=== PATIENT | female | born 1960 | race Caucasian/White ===

== ENCOUNTER 2016-09-20 00:57 | Inpatient (IN) | payer BC ==
[~2016-09-20] VITALS: Ht 170.2 cm; Wt 94.4 kg
[~2016-09-20 00:57] MED LIST: ATOR40TA59 PO; AZIT250T PO; CARV6.252 PO; FAMO20TA5 PO; FURO-68 PO; FURO40TA4 PO; IBUP400T18 PO; LISI2.5T PO; NICO2GUM5 BC; PRAS10TA4 PO
[2016-09-20] MEDS ORDERED: ONDANSETRON PF 4 MG/2 ML VIAL. IV ONE (01:45)
[2016-09-20] MEDS ORDERED: IPRATRPIUM/ALBUTEROL 0.5/2.5MG 3 ML NEBU. NEB ONE (01:45)
[2016-09-20 01:51] LABS: BASO # 0.1 x10^3/uL (0.0-0.2); BASO % 1 % (0-3); EOS % 4 % (0-3); HEMATOCRIT 38.3 % (36.0-47.0); HEMOGLOBIN 12.6 g/dL (12.0-15.5); LYMPH # 3.6 x10^3/uL (1.0-4.8); LYMPH % 32 % (24-48); MEAN CORPUSCULAR HEMOGLOBIN 29 pg (25-35); MEAN CORPUSCULAR HGB CONC 33 g/dL (31-37); MEAN CORPUSCULAR VOLUME 88 fL (79-100); MONO % 6 % (0-9); NEUT % 57 % (31-73); PLATELET COUNT 260 x10^3/uL (140-400); RED BLOOD COUNT 4.35 x10^6/uL (3.50-5.40); RED CELL DISTRIBUTION WIDTH 13.2 % (11.5-14.5)
[2016-09-20 02:04] LABS: CALCIUM 8.9 mg/dL (8.5-10.1); CREATININE 1.2 mg/dL (0.6-1.0); GFR 46.8; POTASSIUM 3.5 mmol/L (3.5-5.1)
[2016-09-20 02:10] LABS: OBC FLU VALID
--- NOTE | 2016-09-20 02:18 | PHYS DOC ---
Past Medical History Past Medical History: CHF, COPD, Hypertension Additional Past Medical Histor: ectopic , CARDIAC STENTS Past Surgical History: Hysterectomy Additional Past Surgical Histo: 8 LEFT KNEE PROCEDURES Alcohol Use: Occasionally Drug Use: None Adult General Chief Complaint Chief Complaint: Congestion HPI HPI This is a 55-year-old female who has significant history of COPD and CHF is had CAD as well with multiple stents presenting with cough and mild shortness of breath for the last week that has worsened. She states she has been congested as well. She states she has mild chest pain with her cough and breathing. She states subjective fever and chills. Review of Systems Review of Systems Constitutional: Denies fever or chills [] Eyes: Denies change in visual acuity, redness, or eye pain [] HENT: Denies nasal congestion or sore throat [] Respiratory: Has cough, has shortness of breath [] Cardiovascular: No additional information not addressed in HPI [] GI: Denies abdominal pain, nausea, vomiting, bloody stools or diarrhea [] : Denies dysuria or hematuria [] Musculoskeletal: Denies back pain or joint pain [] Integument: Denies rash or skin lesions [] Neurologic: Denies headache, focal weakness or sensory changes [] Endocrine: Denies polyuria or polydipsia [] Current Medications Current Medications Current Medications Medications (Trade) Dose Ordered Sig/Mary Start Time Stop Time Status Last Admin Dose Admin Albuterol/ Ipratropium (Duoneb) 3 ml 1X ONCE 09/20/16 01:45 09/20/16 01:46 DC 09/20/16 01:51 3 ML Methylprednisolone Sodium Succinate (Solu-Medrol 125mg Vial) 125 mg 1X ONCE 09/20/16 02:30 09/20/16 02:31 DC 09/20/16 02:41 125 MG Ondansetron HCl (Zofran) 4 mg 1X ONCE 09/20/16 01:45 09/20/16 01:46 DC 09/20/16 01:48 4 MG Allergies Allergies Allergies Coded Allergies Type Severity Reaction Last Updated Verified codeine Allergy Severe Anaphylaxis 08/04/14 Yes ketorolac Allergy Severe Anaphylaxis 08/04/14 Yes diphenhydramine Allergy Intermediate Hives 06/19/16 Yes Physical Exam Physical Exam Constitutional: Well developed, well nourished, no acute distress, non-toxic appearance. [] HENT: Normocephalic, atraumatic, bilateral external ears normal, oropharynx moist, no oral exudates, nose normal. [] Eyes: PERRLA, EOMI, conjunctiva normal, no discharge. [] Neck: Normal range of motion, no tenderness, supple, no stridor. [] Cardiovascular:Heart rate regular rhythm, no murmur [] Lungs & Thorax: Mild expiratory wheeze [] Abdomen: Bowel sounds normal, soft, no tenderness, no masses, no pulsatile masses. [] Skin: Warm, dry, no erythema, no rash. [] Back: No tenderness, no CVA tenderness. [] Extremities: No tenderness, no cyanosis, no clubbing, ROM intact, no edema. [] Neurologic: Alert and oriented X 3, normal motor function, normal sensory function, no focal deficits noted. [] Psychologic: Affect normal, judgement normal, mood normal. [] Current Patient Data Vital Signs Vital Signs Date Time Temp Pulse Resp B/P Pulse Ox O2 Delivery O2 Flow Rate FiO2 09/20/16 02:30 104 148/85 92 Room Air 09/20/16 01:07 98.4 20 98.4 Lab Values Laboratory Tests Test 09/20/16 01:40 White Blood Count 11.0x10^3/uL (4.0-11.0) Red Blood Count 4.35x10^6/uL (3.50-5.40) Hemoglobin 12.6g/dL (12.0-15.5) Hematocrit 38.3% (36.0-47.0) Mean Corpuscular Volume 88fL (79-100) Mean Corpuscular Hemoglobin 29pg (25-35) Mean Corpuscular Hemoglobin Concent 33g/dL (31-37) Red Cell Distribution Width 13.2% (11.5-14.5) Platelet Count 260x10^3/uL (140-400) Neutrophils (%) (Auto) 57% (31-73) Lymphocytes (%) (Auto) 32% (24-48) Monocytes (%) (Auto) 6% (0-9) Eosinophils (%) (Auto) 4% (0-3) H Basophils (%) (Auto) 1% (0-3) Neutrophils # (Auto) 6.3x10^3uL (1.8-7.7) Lymphocytes # (Auto) 3.6x10^3/uL (1.0-4.8) Monocytes # (Auto) 0.6x10^3/uL (0.0-1.1) Eosinophils # (Auto) 0.5x10^3/uL (0.0-0.7) Basophils # (Auto) 0.1x10^3/uL (0.0-0.2) Sodium Level 143mmol/L (136-145) Potassium Level 3.5mmol/L (3.5-5.1) Chloride Level 105mmol/L (98-107) Carbon Dioxide Level 27mmol/L (21-32) Anion Gap 11 (6-14) Blood Urea Nitrogen 15mg/dL (7-20) Creatinine 1.2mg/dL (0.6-1.0) H Estimated GFR (Cockcroft-Gault) 46.8 Glucose Level 204mg/dL (70-99) H Calcium Level 8.9mg/dL (8.5-10.1) Troponin I Quantitative < 0.017ng/mL (0.000-0.055) GZ-Tkw-X-Type Natriuretic Peptide 147pg/mL (0-124) H Influenza Type A Antigen Negative (NEGATIVE) Influenza Type B Antigen Negative (NEGATIVE) Laboratory Tests 09/20/16 01:40 Laboratory Tests 09/20/16 01:40 EKG EKG EKG as interpreted by ne shows a sinus tachycardia with rate of 107 bpm. There are some noted T-wave inversions to V4 to V6. Similar to prior EKG that demonstrated signs of high lateral ST abnormalities. Radiology/Procedures Radiology/Procedures One view of the chest as interpreted by ne did not reveal any acute cardiopulmonary process. Course & Med Decision Making Course & Med Decision Making Pertinent Labs and Imaging studies reviewed. (See chart for details) [place] female with known history of COPD and CAD with stents will be admitted to the hospital for COPD exacerbation. Her portable view of her chest did not reveal any acute abnormalities. Her EKG shows continued demonstration of bilateral ST changes. Her cardiac enzymes are negative. Her cough and duration of chest symptoms are in direct correlation. She was given a dose of IV steroids and breathing treatment as well as a nebulized lidocaine treatment with mild relief. Patient still continued to be symptomatically short of breath and will be admitted to the hospitalist, Dr. King, for further evaluation and treatment. I will be discussing the need to admit this patient with Dr. King. Her room air saturation remained at 94% prior to be admitted to the floor and she was in no acute respiratory distress. Dragon Disclaimer Dragon Disclaimer This electronic medical record was generated, in whole or in part, using a voice recognition dictation system. Departure Departure Impression: Primary Impression: COPD exacerbation Disposition: ADMITTED INPATIENT Admitting Physician: Kael King Condition: STABLE Referrals: NO PCP (PCP) IGOR DASILVA DO Sep 20, 2016 02:18
[2016-09-20] MEDS ORDERED: methylPREDNISolone SOD SUCC PF 125 MG/2 ML VIAL. IV ONE (02:30)
[2016-09-20] MEDS ORDERED: ONDANSETRON PF 4 MG/2 ML VIAL. IV PRN (03:00)
[2016-09-20] MEDS ORDERED: LIDOCAINE 4% IJ ONE (03:00)
[2016-09-20 04:14] VITALS: BP 123/86
[2016-09-20] MEDS ORDERED: GUAIFENESIN 200 MG/10 ML LIQUID. PO PRN (05:00)
[2016-09-20] MEDS ORDERED: GUAIFENESIN ER 600 MG TABLET.ER PO PRN (05:06)
[2016-09-20] MEDS: IBUPROFEN 400 MG TABLET. PO PRN ×2 (05:13→10:19)
[2016-09-20] MEDS ORDERED: INFLUENZA VAX SCREEN BY RX. MC ONE (06:15)
--- NOTE | 2016-09-20 06:25 | EKG ---
[facility] [address] [place] [address] Test Date: 2016-09-20 Test Time: 01:11:56 Pat Name: PRIMO HOPKINS Department: Room: [facility] Gender: F Safety Council Director: : 1960 Requested By: IGOR DASILVA Order Number: [id number] Reading MD: Attila Porter Measurements Intervals [place] Rate: 107 P: 55 MD: 130 QRS: 8 QRSD: 106 T: 136 QT: 344 QTc: 465 Interpretive Statements SINUS TACHYCARDIA ST & T ABNORMALITY, CONSIDER ANTEROLATERAL ISCHEMIA OR LEFT VENTRICULAR STRAIN INFEROLATERAL ISCHEMIA OR LEFT VENTRICULAR STRAIN RI6.01 Unconfirmed report Compared to ECG 06/19/2016 17:00:18 Atrial abnormality no longer present Left-axis deviation no longer present T-wave abnormality still present Possible ischemia still present Electronically Signed On 09-25-2016 13:33:01 SENIOR CARE MANAGER by Attila Porter
--- NOTE | 2016-09-20 07:13 | RAD ---
Indication chest pain. A single view of the chest was obtained and is compared to an examination 06/19/2016. The heart and pulmonary vessels appear normal. The lungs are clear. The mediastinum has a normal appearance. There has not been a significant change in the chest compared to the previous exam. IMPRESSION: No acute or focal process. No significant change
[2016-09-20 07:15] VITALS: BP 124/68
[2016-09-20] MEDS ORDERED: IPRATRPIUM/ALBUTEROL 0.5/2.5MG 3 ML NEBU. NEB SCH (08:00)
[2016-09-20] MEDS ORDERED: FLU VACC QUAD 2016-17 (36MOS+)/PF 0.5 ML SYRINGE. VAX IM ONE (09:00)
--- NOTE | 2016-09-20 09:22 | PDOC1 ---
History and Physical Past Medical History Cardiovascular: CHF, HTN, Other (cardiomyopathy) Pulmonary: COPD CENTRAL NERVOUS SYSTEM: Other GI: GERD Heme/Onc: No pertinent hx Hepatobiliary: No pertinent hx Psych: No pertinent hx Rheumatologic: No pertinent hx Infectious disease: No pertinent hx Renal/: No pertinent hx Endocrine: No pertinent hx Past Surgical History Past Surgical History: Hysterectomy, Other Family History Family History: Coronary Artery Disease Social History Smoke: 1 pack per day ALCOHOL: none Drugs: None Current Problem List Problem List Problems Medical Problems: (1) COPD exacerbation Status: Acute Current Medications Current Medications Current Medications Medications (Trade) Dose Ordered Sig/Mary Start Time Stop Time Status Last Admin Dose Admin Albuterol/ Ipratropium (Duoneb) 3 ml RTQID 09/20/16 08:00 09/21/16 07:59 09/20/16 07:10 3 ML Guaifenesin (Mucinex) 600 mg PRN BID PRN 09/20/16 05:06 09/20/16 05:14 600 MG Guaifenesin (Robitussin) 600 mg PRN BID PRN 09/20/16 05:00 09/20/16 05:06 DC Ibuprofen (Motrin) 400 mg TID PRN PRN 09/20/16 05:00 09/20/16 05:13 400 MG Influenza Virus Vaccine Quadrival (Fluarix Quad [id number] Syringe) 0.5 ml ONCE ONCE 09/20/16 09:00 09/20/16 09:01 DC Info (Do NOT chart on this placeholder) 0.5 each 1X ONCE 09/20/16 06:15 09/20/16 06:16 UNV Lidocaine HCl 2 ml ONCE ONCE 09/20/16 03:00 09/20/16 03:01 DC Methylprednisolone Sodium Succinate (Solu-Medrol 125mg Vial) 125 mg 1X ONCE 09/20/16 02:30 09/20/16 02:31 DC 09/20/16 02:41 125 MG Ondansetron HCl (Zofran) 4 mg PRN Q8HRS PRN 09/20/16 03:00 09/21/16 02:59 Allergies Allergies Allergies Coded Allergies Type Severity Reaction Last Updated Verified codeine Allergy Severe Anaphylaxis 08/04/14 Yes ketorolac Allergy Severe Anaphylaxis 08/04/14 Yes diphenhydramine Allergy Intermediate Hives 06/19/16 Yes ROS Review of System CONSTITUTIONAL: No fever or chills EYES: No recent changes SKIN: No rash or itching CARDIOVASCULAR: No chest pain, syncope, palpitations, or edema RESPIRATORY: SOB or cough GASTROINTESTINAL: No nausea, vomiting or abdominal pain NEUROLOGICAL: No headaches or weakness ENDOCRINE: No cold or heat intolerance GENITOURINARY: No urgency or frequency of urination MUSCULOSKELETAL: No back pain or joint pain LYMPHATICS: No enlarged lymph nodes PSYCHIATRIC: No anxiety or depression Physical Exam Physical Exam GEN.: No apparent distress. Alert and oriented. HEENT: Head is normocephalic, atraumatic NECK: Supple. no jvd LUNGS: wheezing bilateral HEART: RRR, S1, S2 present. Peripheral pulses intact ABDOMEN: Soft, nontender. Positive bowel sounds. EXTREMITIES: Without any cyanosis. NEUROLOGIC: Normal speech, normal tone PSYCHIATRIC: Normal affect, normal mood. SKIN: no visible lesions Vitals Vitals Vital Signs Date Time Temp Pulse Resp B/P Pulse Ox O2 Delivery O2 Flow Rate FiO2 09/20/16 07:15 97.6 94 18 124/68 97 Room Air 97.6 Labs Labs Laboratory Tests Test 09/20/16 01:40 White Blood Count 11.0x10^3/uL (4.0-11.0) Red Blood Count 4.35x10^6/uL (3.50-5.40) Hemoglobin 12.6g/dL (12.0-15.5) Hematocrit 38.3% (36.0-47.0) Mean Corpuscular Volume 88fL (79-100) Mean Corpuscular Hemoglobin 29pg (25-35) Mean Corpuscular Hemoglobin Concent 33g/dL (31-37) Red Cell Distribution Width 13.2% (11.5-14.5) Platelet Count 260x10^3/uL (140-400) Neutrophils (%) (Auto) 57% (31-73) Lymphocytes (%) (Auto) 32% (24-48) Monocytes (%) (Auto) 6% (0-9) Eosinophils (%) (Auto) 4% (0-3) Basophils (%) (Auto) 1% (0-3) Neutrophils # (Auto) 6.3x10^3uL (1.8-7.7) Lymphocytes # (Auto) 3.6x10^3/uL (1.0-4.8) Monocytes # (Auto) 0.6x10^3/uL (0.0-1.1) Eosinophils # (Auto) 0.5x10^3/uL (0.0-0.7) Basophils # (Auto) 0.1x10^3/uL (0.0-0.2) Sodium Level 143mmol/L (136-145) Potassium Level 3.5mmol/L (3.5-5.1) Chloride Level 105mmol/L (98-107) Carbon Dioxide Level 27mmol/L (21-32) Anion Gap 11 (6-14) Blood Urea Nitrogen 15mg/dL (7-20) Creatinine 1.2mg/dL (0.6-1.0) Estimated GFR (Cockcroft-Gault) 46.8 Glucose Level 204mg/dL (70-99) Calcium Level 8.9mg/dL (8.5-10.1) Troponin I Quantitative < 0.017ng/mL (0.000-0.055) GY-Deo-V-Type Natriuretic Peptide 147pg/mL (0-124) Influenza Type A Antigen Negative (NEGATIVE) Influenza Type B Antigen Negative (NEGATIVE) Laboratory Tests Test 09/20/16 01:40 White Blood Count 11.0x10^3/uL (4.0-11.0) Red Blood Count 4.35x10^6/uL (3.50-5.40) Hemoglobin 12.6g/dL (12.0-15.5) Hematocrit 38.3% (36.0-47.0) Mean Corpuscular Volume 88fL (79-100) Mean Corpuscular Hemoglobin 29pg (25-35) Mean Corpuscular Hemoglobin Concent 33g/dL (31-37) Red Cell Distribution Width 13.2% (11.5-14.5) Platelet Count 260x10^3/uL (140-400) Neutrophils (%) (Auto) 57% (31-73) Lymphocytes (%) (Auto) 32% (24-48) Monocytes (%) (Auto) 6% (0-9) Eosinophils (%) (Auto) 4% (0-3) Basophils (%) (Auto) 1% (0-3) Neutrophils # (Auto) 6.3x10^3uL (1.8-7.7) Lymphocytes # (Auto) 3.6x10^3/uL (1.0-4.8) Monocytes # (Auto) 0.6x10^3/uL (0.0-1.1) Eosinophils # (Auto) 0.5x10^3/uL (0.0-0.7) Basophils # (Auto) 0.1x10^3/uL (0.0-0.2) Sodium Level 143mmol/L (136-145) Potassium Level 3.5mmol/L (3.5-5.1) Chloride Level 105mmol/L (98-107) Carbon Dioxide Level 27mmol/L (21-32) Anion Gap 11 (6-14) Blood Urea Nitrogen 15mg/dL (7-20) Creatinine 1.2mg/dL (0.6-1.0) Estimated GFR (Cockcroft-Gault) 46.8 Glucose Level 204mg/dL (70-99) Calcium Level 8.9mg/dL (8.5-10.1) Troponin I Quantitative < 0.017ng/mL (0.000-0.055) DC-Spn-S-Type Natriuretic Peptide 147pg/mL (0-124) Influenza Type A Antigen Negative (NEGATIVE) Influenza Type B Antigen Negative (NEGATIVE) VTE Prophylaxis Ordered VTE Prophylaxis Devices: Yes VTE Pharmacological Prophylaxi: Yes PERFECTO MAR MD Sep 20, 2016 09:22
[2016-09-20] MEDS ORDERED: NICOTINE POLACRILEX 2MG GUM PACKAGE of 12. BC PRN (09:30)
[2016-09-20] MEDS ORDERED: GUAIFENESIN DM 200MG/20MG 10 ML SYRUP. PO PRN (09:45)
[2016-09-20] MEDS: DOXYCYCLINE HYCLATE 100 MG TABLET PO SCH ×2 (10:19→21:35)
[2016-09-20] MEDS: FUROSEMIDE 40 MG TABLET PO SCH (10:20)
[2016-09-20] MEDS: PRASUGREL 10 MG TABLET. PO SCH (10:21)
[2016-09-20] MEDS: CARVEDILOL 6.25 MG TABLET PO SCH ×2 (10:21→17:44)
[2016-09-20] MEDS: NICOTINE 21MG PATCH. TD PRN (10:26)
[2016-09-20 11:03] VITALS: BP 128/67
[2016-09-20] MEDS: PANTOPRAZOLE 40 MG TABLET. PO SCH (11:06)
--- NOTE | 2016-09-20 11:15 | PDOC2 ---
TAWNY SHEN RIGGER THIRD 09/20/16 1115: CARDIAC CONSULT DATE OF CONSULT Date of Consult DATE: 09/20/16 TIME: 10:58 REASON FOR CONSULT Reason for Consult: SOA REFERRING PHYSICIAN Referring Physician: Bri SOURCE Source: Chart review, Patient HISTORY OF PRESENT ILLNESS HISTORY OF PRESENT ILLNESS This is a pleasant 55 yo female admitted for complains of SOA. reports that in the last week she has developed nasal congestion progressing to intractable productive coughing with white to yellow sputum. She was at work yesterday when she had a coughing spell and felt sharp chest pain during deep breathing and coughing. Also her SOA increased as well. Complains of chills but no recorded fever. Unfortunately she continue to smoke tobacco and accidentally stopped her ASA a month ago because she thought she could stop it but continues to be taking effient. She has been compliant with rest of her medications. Denies any increased leg swelling, bloating, nausea. PAST MEDICAL HISTORY Past Medical History Cardiovascular: CHF, HTN Pulmonary: COPD CENTRAL NERVOUS SYSTEM: No pertinent history GI: GERD Heme/Onc: No pertinent hx Hepatobiliary: No pertinent hx Psych: No pertinent hx Musculoskeletal: Osteoarthritis (knees) Rheumatologic: No pertinent hx Infectious disease: No pertinent hx ENT: No pertinent hx Renal/: No pertinent hx Endocrine: No pertinent hx Dermatology: No pertinent hx PAST SURGICAL HISTORY Past Surgical History Hysterectomy (complete), Other (left knee surgery X 8) FAMILY HISTORY Family History Coronary Artery Disease (both parents; sister of CAD @ age 55) SOCIAL HISTORY Social History Smoke: 1 pack per day (X 40 years) ALCOHOL: none Drugs: None CURRENT MEDICATIONS CURRENT MEDICATIONS Current Medications Medications (Trade) Dose Ordered Sig/Mary Route PRN Reason Start Time Stop Time Status Last Admin Dose Admin Albuterol/ Ipratropium (Duoneb) 3 ml 1X ONCE NEB 09/20/16 01:45 09/20/16 01:46 DC 09/20/16 01:51 Ondansetron HCl (Zofran) 4 mg 1X ONCE IV 09/20/16 01:45 09/20/16 01:46 DC 09/20/16 01:48 Methylprednisolone Sodium Succinate (Solu-Medrol 125mg Vial) 125 mg 1X ONCE IV 09/20/16 02:30 09/20/16 02:31 DC 09/20/16 02:41 Albuterol/ Ipratropium (Duoneb) 3 ml RTQID NEB 09/20/16 08:00 09/20/16 09:40 DC 09/20/16 07:10 Ibuprofen (Motrin) 400 mg TID PRN PRN PO INFLAMMATION 09/20/16 05:00 09/20/16 10:19 Guaifenesin (Mucinex) 600 mg PRN BID PRN PO COUGH 09/20/16 05:06 09/20/16 05:14 Carvedilol (Coreg) 6.25 mg BIDWMEALS PO 09/20/16 10:00 09/20/16 10:21 Furosemide (Lasix) 40 mg DAILY PO 09/20/16 10:00 09/20/16 10:20 Prasugrel (Effient) 10 mg DAILYWBKFT PO 09/20/16 10:00 09/20/16 10:21 Nicotine (Nicoderm Cq 21mg) 1 patch PRN DAILY PRN TD SMOKING CESSATION 09/20/16 09:45 09/20/16 10:26 Doxycycline Hyclate (Vibra-Tab) 100 mg BID PO 09/20/16 10:30 09/20/16 10:19 ALLERGIES ALLERGIES: Coded Allergies: codeine (Verified Allergy, Severe, Anaphylaxis, 08/04/14) ketorolac (Verified Allergy, Severe, Anaphylaxis, 08/04/14) diphenhydramine (Verified Allergy, Intermediate, Hives, 06/19/16) ROS Review of System 14 point ROS evaluated with pertinent positives noted per HPI PHYSICAL EXAM General: Alert, Oriented X3, Cooperative, No acute distress HEENT: Atraumatic, Mucous membr. moist/pink Lungs: Clear to auscultation, Normal air movement Heart: Regular rate, Normal S1, Normal S2, Other (2/6 systolic murmur ) Abdomen: Soft, No tenderness Extremities: No cyanosis, Other (1+ bilateral LE pitting edema) Skin: No breakdown, No significant lesion Neuro: Normal speech, Sensation intact Psych/Mental Status: Mental status NL, Mood NL MUSCULOSKELETAL: Osteoarthritic changes both hands VITALS VITALS Vital Signs Date Time Temp Pulse Resp B/P Pulse Ox O2 Delivery O2 Flow Rate FiO2 09/20/16 10:21 94 124/68 09/20/16 08:00 Room Air 09/20/16 07:15 97.6 18 97 97.6 LABS Lab: Laboratory Tests Test 09/20/16 01:40 White Blood Count 11.0x10^3/uL (4.0-11.0) Red Blood Count 4.35x10^6/uL (3.50-5.40) Hemoglobin 12.6g/dL (12.0-15.5) Hematocrit 38.3% (36.0-47.0) Mean Corpuscular Volume 88fL (79-100) Mean Corpuscular Hemoglobin 29pg (25-35) Mean Corpuscular Hemoglobin Concent 33g/dL (31-37) Red Cell Distribution Width 13.2% (11.5-14.5) Platelet Count 260x10^3/uL (140-400) Neutrophils (%) (Auto) 57% (31-73) Lymphocytes (%) (Auto) 32% (24-48) Monocytes (%) (Auto) 6% (0-9) Eosinophils (%) (Auto) 4% (0-3) Basophils (%) (Auto) 1% (0-3) Neutrophils # (Auto) 6.3x10^3uL (1.8-7.7) Lymphocytes # (Auto) 3.6x10^3/uL (1.0-4.8) Monocytes # (Auto) 0.6x10^3/uL (0.0-1.1) Eosinophils # (Auto) 0.5x10^3/uL (0.0-0.7) Basophils # (Auto) 0.1x10^3/uL (0.0-0.2) Sodium Level 143mmol/L (136-145) Potassium Level 3.5mmol/L (3.5-5.1) Chloride Level 105mmol/L (98-107) Carbon Dioxide Level 27mmol/L (21-32) Anion Gap 11 (6-14) Blood Urea Nitrogen 15mg/dL (7-20) Creatinine 1.2mg/dL (0.6-1.0) Estimated GFR (Cockcroft-Gault) 46.8 Glucose Level 204mg/dL (70-99) Calcium Level 8.9mg/dL (8.5-10.1) Troponin I Quantitative < 0.017ng/mL (0.000-0.055) SR-Qyo-S-Type Natriuretic Peptide 147pg/mL (0-124) Influenza Type A Antigen Negative (NEGATIVE) Influenza Type B Antigen Negative (NEGATIVE) ECHOCARDIOGRAM ECHOCARDIOGRAM <Conclusion> Left ventricle systolic function is severely impaired. The Ejection Fraction is 25-30%. There is global hypokinesis of the left ventricle. The anterior wall, septum and apex are severely hypokinetic. Doppler and Color Flow revealed trace to mild mitral regurgitation. Doppler and Color Flow revealed trace to mild tricuspid regurgitation. The PA pressure was estimated at 22 mmHg. DATE: 06/20/16 0913 HEART CATH HEART CATH Conclusion 1. Single-vessel coronary artery disease involving left anterior descending artery, confirmed to be physiologically significant based on IFR and FFR measurements as stated above. 2. Successful PCI/drug eluting stents placement to the left anterior descending artery. 3. Apical wall hypokinesis with ejection fraction estimated at 40%. Recommendations 1. Aspirin 325 mg daily 2. Effient 10 mg daily for preferably one year 3. Cardiovascular risk factor modification. DATE: 06/20/16 1510 ASSESSMENT/PLAN ASSESSMENT/PLAN 1. AECOPD likely triggered by URI 2. CAD: s/p PCI/HAYES to LAD-06/19/2016,. Also noted with small to moderate caliber nondominant vessel that showed tandem 60% stenoses involving the mid segment. Stable 3. ICM: compensated. NYHA 2 4. Accelerated HTN 5. HLP 6. COPD with tobaccoism 7. Chronic systolic CHF: compensated. SOA likely more from COPD 8. DM2 9. Suspect CKD3 Recommendations 1. Failed to follow up in office, Failed to reschedule. also stopped ASA a month ago. Discussed adherence 2. Continue with diuretic therapy 3. Continue to optimize secondary prevention measures 4. Continue with DAPT- ASA/Effient 5. lipid panel, UA, A1C 6. Continue to encourage smoking cessation 7. Restart antiHTN. TTE today Problems: EDITA DAVIS MD 09/21/16 2165: CARDIAC CONSULT ALLERGIES ALLERGIES: Coded Allergies: codeine (Verified Allergy, Severe, Anaphylaxis, 08/04/14) ketorolac (Verified Allergy, Severe, Anaphylaxis, 08/04/14) diphenhydramine (Verified Allergy, Intermediate, Hives, 06/19/16) ASSESSMENT/PLAN ASSESSMENT/PLAN Patient seen and examined 3/1/17. Agree with BOTTLE BOOTH ATTENDANT's assessment and plan. Symptoms secondary to acute COPD exacerbation. Chronic systolic heart failure clinically well compensated. CAD status stable. Blood pressure better controlled since admission. Continue current medications including diuretics. Thank you for consultation. Problems: TAWNY SHEN APRN Sep 20, 2016 11:15 EDITA DAVIS MD Sep 21, 2016 08:26
[2016-09-20] MEDS: IPRATRPIUM/ALBUTEROL 0.5/2.5MG 3 ML NEBU. NEB SCH ×3 (11:16→19:26)
[2016-09-20 11:44] LABS: CHOLESTEROL/HDL RATIO 3.8
--- NOTE | 2016-09-20 12:36 | HP ---
ADMIT DATE: 09/20/2016 CHIEF COMPLAINT: Cough and short of breath. HISTORY OF THE PRESENT ILLNESS: A 55-year-old female patient with active smoking, COPD, congestive heart failure, and ischemic cardiomyopathy who presented to the ER with complaints of cough for nearly one week. The symptoms started like upper respiratory tract infection, and she states that one of her roommates is sick with upper respiratory tract infection. She denies any muscle pain or joint pains. She has been coughing for the last one week which is intractable in nature and which made her to have some chest pain. Cough is nonproductive in nature, and also she has shortness of breath. She denies any PND, orthopnea, or leg swelling. She denies any noncompliance with medications. However, she is actively smoking maybe one pack a day. PAST MEDICAL HISTORY: Please see my electronic H and P. REVIEW OF SYSTEMS: Please see my electronic H and P. LABORATORY FINDINGS: BMP within normal range. Creatinine is 1.2, troponin is less than 0.017. Hematology: Within normal range. Serology: Influenza A and B is rapid negative. IMAGING STUDIES: Chest x-ray: No acute process. No significant changes seen. EKG: Not able to personally review. As per the ER report, sinus tachycardia and some T-wave inversions at v4 to v6. ASSESSMENT AND PLAN: 1. Chronic obstructive pulmonary disease exacerbation. 2. History of ischemic cardiomyopathy. 3. Coronary artery disease, active smoking. 4. Hypertension. PLAN: 1. She has been admitted for chronic obstructive pulmonary disease exacerbation and started her on IV Solu-Medrol and doxycycline and also consult Cardiology for further recommendations. Continue periodic nebulization. 2. Nicotine patch. 3. Robitussin with Mucinex for cough. 4. Home medications reviewed and reconciled. 5. Monitor CBC and BMP in a.m. PERFECTO MAR MD DR: KE/jung JOB#: [id number] / [id number]
[2016-09-20 12:37] LABS: NEGATIVE OBC STREP NEG; POSITIVE OBC STREP POS
[2016-09-20] MEDS: ASPIRIN ENTERIC COATED 325 MG TABLET.DR. PO SCH (14:21)
[2016-09-20] MEDS: methylPREDNISolone SOD SUCC PF 40 MG/ML VIAL. IV SCH ×2 (14:22→21:36)
[2016-09-20 14:49] LABS: BILIRUBIN,URINE NEGATIVE (NEG); GLUCOSE,URINE 500 mg/dL (NEG); NITRITE,URINE NEGATIVE (NEG); PROTEIN,URINE NEGATIVE (NEG-TRACE); UROBILINOGEN,URINE 0.2 mg/dL (0.2 mg/dL)
[2016-09-20 15:07] VITALS: BP 119/60
[2016-09-20 15:17] LABS: BACTERIA,URINE 0 /HPF (0-FEW); RBC,URINE 0 /HPF (0-2); SQUAMOUS EPITHELIAL CELL,UR MOD /LPF
[2016-09-20] MEDS ORDERED: METOCLOPRAMIDE HCL 10 MG/2 ML VIAL. IV ONE (16:00)
--- NOTE | 2016-09-20 16:40 | CARD ---
APPROVED REPORT EXAM: Two-dimensional and M-mode echocardiogram with Doppler and color Doppler. Other Information Quality : FairHR: 103bpm Rhythm : Tachycardia INDICATION Cardiac Disease: CAD Cardiomyopathy 2D DIMENSIONS RVDd1.2 (2.9-3.5cm)Left Atrium(2D)3.5 (1.6-4.0cm) IVSd1.2 (0.7-1.1cm)Aortic Root(2D)2.8 (2.0-3.7cm) LVDd5.3 (3.9-5.9cm)LVOT Diameter2.3 (1.8-2.4cm) PWd1.2 (0.7-1.1cm)LVDs3.8 (2.5-4.0cm) FS (%) 27.7 %SV72.4 ml LVEF(%)53.2 (>50%) Aortic Valve AoV Peak Livan.131.8cm/sAoV VTI22.2cm AO Peak GR.7.0mmHgLVOT Peak Livan.96.0cm/s AO Mean GR.4mmHgAVA (VMAX)3.15cm2 Mitral Valve MV E Peak Gr.4mmHgMV E Mean Gr.2mmHg Pulmonary Vein S1 Ktxpaycw68.2cm/sD2 Yxbjtisf23.7cm/s PVa [id number] LEFT VENTRICLE The left ventricle is normal size. There is mild concentric left ventricular hypertrophy. The left ve ntricular systolic function is normal and the ejection fraction is within normal range. The Ejection Fraction is 50-55%. There is normal LV segmental wall motion. Unable to assess due to E/A waveform fu javi. RIGHT VENTRICLE The right ventricle is normal size. There is normal right ventricular wall thickness. The right ventr icular systolic function is normal. ATRIA The left atrium is borderline dilated. The right atrium size is normal. The interatrial septum is int act with no evidence for an atrial septal defect or patent foramen ovale as noted on 2-D or Doppler i maging. AORTIC VALVE The aortic valve is mildly sclerotic. The aortic valve is trileaflet. Doppler and Color Flow revealed no significant aortic regurgitation. There is no significant aortic valvular stenosis. MITRAL VALVE The mitral valve is not well visualized. Mitral annular calcification is mild. The mitral valve leafl ets are thickened. There is no evidence of mitral valve prolapse. There is no mitral valve stenosis. Doppler and Color Flow revealed trace mitral valve regurgitation. TRICUSPID VALVE The tricuspid valve is normal in structure and function. Doppler and Color Flow revealed no tricuspid valve regurgitation noted. PULMONIC VALVE The pulmonic valve is not well visualized. Unable to assess. GREAT VESSELS The aortic root is normal in size. The ascending aorta is normal in size. The IVC is normal in size a nd collapses >50% with inspiration. PERICARDIAL EFFUSION There is no evidence of significant pericardial effusion. Critical Notification Critical Value: No <Conclusion> The left ventricle is normal size. The left ventricular systolic function is normal and the ejection fraction is within normal range. The Ejection Fraction is 50-55%. There is mild concentric left ventricular hypertrophy. There is no significant aortic valvular stenosis. Doppler and Color Flow revealed no significant aortic regurgitation. Doppler and Color Flow revealed trace mitral valve regurgitation. Doppler and Color Flow revealed no tricuspid valve regurgitation noted. There is no evidence of significant pericardial effusion.
[2016-09-20 19:00] VITALS: BP 108/60
[2016-09-20] MEDS ORDERED: FAMOTIDINE 20 MG TABLET. PO SCH (21:00)
[2016-09-20] MEDS: ATORVASTATIN CALCIUM 40 MG TABLET. PO SCH (21:35)
[2016-09-20] MEDS: LISINOPRIL 2.5 MG TABLET PO SCH (21:38)
[2016-09-20 23:00] VITALS: BP 121/52
--- NOTE | 2016-09-20 23:32 | ACF ---
Admission Forms Criteria COPD Clinical Indications for Admission to Inpatient Care (Place 'X' for any and all applicable criteria): Admission is indicated for ANY ONE of the following (1)(2)(3): [X]I. Acute exacerbation by high-risk comorbidity (e.g., pneumonia, dysrhythmia, heart failure, pleural effusion, pneumothorax) or severe underlying COPD (e.g., steroid dependent) [ ]II. Inpatient admission required rather than observation care (see Chronic Obstructive Pulmonary Disease: Observation Care) because of ANY ONE of the following: [ ]a) New or pre-existing signs or symptoms of COPD (eg, dyspnea or Tachypnea at rest or with minimal activity) that persist despite outpatient and observation care treatment [ ]b) New-onset hypoxemia (room air SaO2 less than 90%, PO2 less than 60 mm Hg (8.0 kPa)) that persists despite outpatient and observation care treatment [ ]c) Worsening of pre-existing hypoxemia (eg, new or increased requirement for supplemental oxygen to maintain oxygenation at baseline level) that persists despite outpatient and observation care treatment, with oxygen treatment needs performable only in acute inpatient setting [ ]d) Hypercarbia (PCO2 greater than 40 mm Hg (5.3 kPa))-induced respiratory acidosis (pH less than 7.35) that persists despite outpatient and observation care treatment [ ]e) Supplemental oxygen or respiratory treatments for over 24 hours that are performable only in acute inpatient setting [ ]f) Chest tube placement with active evacuation (e.g., suction, drainage) (5) [ ]g) Other condition, treatment or monitoring requiring inpatient admission [ ]III. Planned invasive surgical or diagnostic procedures requiring acute- care hospitalization [ ]IV. Acute respiratory failure (e.g., uncompensated hypercarbia, severe hypoxemia) [ ]V. Severe comorbid condition (e.g., severe steroid myopathy, acute vertebral fracture) that has acutely worsened pulmonary function [ ]. Confusion state, lethargy, obtundation, stupor or coma Extended stay beyond goal length of stay may be needed for (31)(32): [ ]a ) Respiratory Failure. [ ]b) Severe or persisting hypoxemia or hypercarbia [ ]c) Severe or persistent dyspnea [ ]d) Comorbidities (e.g. chronic heart failure, atrial fibrillation with rapid response, pneumonia) [ ]e) Malnutrition The original [facility] content created by [facility] has been revised. The portions of the content which have been revised are identified through the use of italic text or in bold, and [facility] has neither reviewed nor approved the modified material. All other unmodified content is copyright [facility]. Please see references footnoted in the original [facility] edition 2016 Admission Criteria Met?: Yes YAMILA GOODSON Sep 20, 2016 23:32
[2016-09-21 03:00] VITALS: BP 122/50
[2016-09-21 03:38] LABS: BASO % 0 % (0-3); EOS % 0 % (0-3); HEMATOCRIT 36.5 % (36.0-47.0); HEMOGLOBIN 11.9 g/dL (12.0-15.5); LYMPH # 1.8 x10^3/uL (1.0-4.8); LYMPH % 8 % (24-48); MEAN CORPUSCULAR HEMOGLOBIN 29 pg (25-35); MEAN CORPUSCULAR HGB CONC 33 g/dL (31-37); MEAN CORPUSCULAR VOLUME 89 fL (79-100); MONO % 3 % (0-9); NEUT % 89 % (31-73); PLATELET COUNT 277 x10^3/uL (140-400); RED CELL DISTRIBUTION WIDTH 13.5 % (11.5-14.5); WHITE BLOOD COUNT 22.1 x10^3/uL (4.0-11.0)
[2016-09-21 03:49] LABS: CREATININE 0.9 mg/dL (0.6-1.0); GFR 65.2; POTASSIUM 3.8 mmol/L (3.5-5.1)
[2016-09-21 05:36] LABS: PLT ESTIMATE ADEQUATE (ADEQUATE)
[2016-09-21] MEDS: methylPREDNISolone SOD SUCC PF 40 MG/ML VIAL. IV SCH ×3 (05:39→21:05)
[2016-09-21] MEDS: NICOTINE 21MG PATCH. TD PRN (05:43)
[2016-09-21 07:12] VITALS: BP 106/58
[2016-09-21] MEDS: IPRATRPIUM/ALBUTEROL 0.5/2.5MG 3 ML NEBU. NEB SCH ×4 (08:00→20:44)
[2016-09-21] MEDS: CARVEDILOL 6.25 MG TABLET PO SCH ×2 (08:00→17:07)
[2016-09-21] MEDS: ASPIRIN ENTERIC COATED 325 MG TABLET.DR. PO SCH (08:08)
[2016-09-21] MEDS: PANTOPRAZOLE 40 MG TABLET. PO SCH (08:08)
[2016-09-21] MEDS: DOXYCYCLINE HYCLATE 100 MG TABLET PO SCH ×2 (08:08→21:05)
[2016-09-21] MEDS: PRASUGREL 10 MG TABLET. PO SCH (08:08)
[2016-09-21] MEDS: FUROSEMIDE 40 MG TABLET PO SCH (08:10)
--- NOTE | 2016-09-21 09:49 | PDOC ---
PROGRESS NOTES Chief Complaint Chief Complaint A/P 1. Chronic obstructive pulmonary disease exacerbation. 2. History of ischemic cardiomyopathy. 3. Coronary artery disease, active smoking. 4. Hypertension. Plan IV solumderol Periodic nebulizations, pt declined to have duonebs due to stomach upset. Pepcid doxycycline supportive care CPM History of Present Illness History of Present Illness sob not improved no chest pain no fever Vitals Vitals Vital Signs Date Time Temp Pulse Resp B/P Pulse Ox O2 Delivery O2 Flow Rate FiO2 09/21/16 08:00 Room Air 09/21/16 07:12 97.7 99 18 106/58 94 97.7 Physical Exam General: Alert, Oriented X3, Cooperative, No acute distress Heart: Regular rate, Normal S1, Normal S2, Other (2/6 systolic murmur ) Lungs: Wheezing, Other Abdomen: Soft, No tenderness Extremities: No cyanosis, Other Skin: No breakdown, No significant lesion Labs LABS Laboratory Tests Test 09/20/16 12:15 09/20/16 14:28 09/21/16 02:45 Group A Streptococcus Rapid Negative (NEGATIVE) Urine Collection Type Unknown Urine Color Yellow Urine Clarity Clear Urine pH 5.0 Urine Specific [place] 1.015 Urine Protein Negativemg/dL (NEG-TRACE) Urine Glucose (UA) 500mg/dL (NEG) Urine Ketones (Stick) Negativemg/dL (NEG) Urine Blood Negative (NEG) Urine Nitrite Negative (NEG) Urine Bilirubin Negative (NEG) Urine Urobilinogen Dipstick 0.2mg/dL (0.2 mg/dL) Urine Leukocyte Esterase Negative (NEG) Urine RBC 0/HPF (0-2) Urine WBC 1-4/HPF (0-4) Urine Squamous Epithelial Cells Mod/LPF Urine Bacteria 0/HPF (0-FEW) Urine Hyaline Casts Moderate/HPF Urine Mucus Slight/LPF White Blood Count 22.1x10^3/uL (4.0-11.0) Red Blood Count 4.10x10^6/uL (3.50-5.40) Hemoglobin 11.9g/dL (12.0-15.5) Hematocrit 36.5% (36.0-47.0) Mean Corpuscular Volume 89fL (79-100) Mean Corpuscular Hemoglobin 29pg (25-35) Mean Corpuscular Hemoglobin Concent 33g/dL (31-37) Red Cell Distribution Width 13.5% (11.5-14.5) Platelet Count 277x10^3/uL (140-400) Neutrophils (%) (Auto) 89% (31-73) Lymphocytes (%) (Auto) 8% (24-48) Monocytes (%) (Auto) 3% (0-9) Eosinophils (%) (Auto) 0% (0-3) Basophils (%) (Auto) 0% (0-3) Neutrophils # (Auto) 19.7x10^3uL (1.8-7.7) Lymphocytes # (Auto) 1.8x10^3/uL (1.0-4.8) Monocytes # (Auto) 0.6x10^3/uL (0.0-1.1) Eosinophils # (Auto) 0.0x10^3/uL (0.0-0.7) Basophils # (Auto) 0.0x10^3/uL (0.0-0.2) Segmented Neutrophils % 86% (35-66) Lymphocytes % 12% (24-48) Monocytes % 2% (0-10) Platelet Estimate Adequate (ADEQUATE) Sodium Level 140mmol/L (136-145) Potassium Level 3.8mmol/L (3.5-5.1) Chloride Level 103mmol/L (98-107) Carbon Dioxide Level 28mmol/L (21-32) Anion Gap 9 (6-14) Blood Urea Nitrogen 18mg/dL (7-20) Creatinine 0.9mg/dL (0.6-1.0) Estimated GFR (Cockcroft-Gault) 65.2 Glucose Level 186mg/dL (70-99) Calcium Level 9.0mg/dL (8.5-10.1) Assessment and Plan Assessmemt and Plan Problems Medical Problems: (1) COPD exacerbation Status: Acute Problems: Comment Review of Relevant I have reviewed the following items harjeet (where applicable) has been applied. Labs Laboratory Tests Test 09/20/16 01:40 09/20/16 12:15 09/20/16 14:28 09/21/16 02:45 White Blood Count 11.0x10^3/uL (4.0-11.0) 22.1x10^3/uL (4.0-11.0) Red Blood Count 4.35x10^6/uL (3.50-5.40) 4.10x10^6/uL (3.50-5.40) Hemoglobin 12.6g/dL (12.0-15.5) 11.9g/dL (12.0-15.5) Hematocrit 38.3% (36.0-47.0) 36.5% (36.0-47.0) Mean Corpuscular Volume 88fL (79-100) 89fL (79-100) Mean Corpuscular Hemoglobin 29pg (25-35) 29pg (25-35) Mean Corpuscular Hemoglobin Concent 33g/dL (31-37) 33g/dL (31-37) Red Cell Distribution Width 13.2% (11.5-14.5) 13.5% (11.5-14.5) Platelet Count 260x10^3/uL (140-400) 277x10^3/uL (140-400) Neutrophils (%) (Auto) 57% (31-73) 89% (31-73) Lymphocytes (%) (Auto) 32% (24-48) 8% (24-48) Monocytes (%) (Auto) 6% (0-9) 3% (0-9) Eosinophils (%) (Auto) 4% (0-3) 0% (0-3) Basophils (%) (Auto) 1% (0-3) 0% (0-3) Neutrophils # (Auto) 6.3x10^3uL (1.8-7.7) 19.7x10^3uL (1.8-7.7) Lymphocytes # (Auto) 3.6x10^3/uL (1.0-4.8) 1.8x10^3/uL (1.0-4.8) Monocytes # (Auto) 0.6x10^3/uL (0.0-1.1) 0.6x10^3/uL (0.0-1.1) Eosinophils # (Auto) 0.5x10^3/uL (0.0-0.7) 0.0x10^3/uL (0.0-0.7) Basophils # (Auto) 0.1x10^3/uL (0.0-0.2) 0.0x10^3/uL (0.0-0.2) Sodium Level 143mmol/L (136-145) 140mmol/L (136-145) Potassium Level 3.5mmol/L (3.5-5.1) 3.8mmol/L (3.5-5.1) Chloride Level 105mmol/L (98-107) 103mmol/L (98-107) Carbon Dioxide Level 27mmol/L (21-32) 28mmol/L (21-32) Anion Gap 11 (6-14) 9 (6-14) Blood Urea Nitrogen 15mg/dL (7-20) 18mg/dL (7-20) Creatinine 1.2mg/dL (0.6-1.0) 0.9mg/dL (0.6-1.0) Estimated GFR (Cockcroft-Gault) 46.8 65.2 Glucose Level 204mg/dL (70-99) 186mg/dL (70-99) Hemoglobin A1c 6.2% (4.8-5.6) Calcium Level 8.9mg/dL (8.5-10.1) 9.0mg/dL (8.5-10.1) Troponin I Quantitative < 0.017ng/mL (0.000-0.055) UM-Uwq-P-Type Natriuretic Peptide 147pg/mL (0-124) Triglycerides Level 82mg/dL (0-150) Cholesterol Level 151mg/dL (0-200) LDL Cholesterol, Calculated 95mg/dL (0-100) VLDL Cholesterol, Calculated 16mg/dL (0-40) HDL Cholesterol 40mg/dL (40-60) Cholesterol/HDL Ratio 3.8 Influenza Type A Antigen Negative (NEGATIVE) Influenza Type B Antigen Negative (NEGATIVE) Group A Streptococcus Rapid Negative (NEGATIVE) Urine Collection Type Unknown Urine Color Yellow Urine Clarity Clear Urine pH 5.0 Urine Specific [place] 1.015 Urine Protein Negativemg/dL (NEG-TRACE) Urine Glucose (UA) 500mg/dL (NEG) Urine Ketones (Stick) Negativemg/dL (NEG) Urine Blood Negative (NEG) Urine Nitrite Negative (NEG) Urine Bilirubin Negative (NEG) Urine Urobilinogen Dipstick 0.2mg/dL (0.2 mg/dL) Urine Leukocyte Esterase Negative (NEG) Urine RBC 0/HPF (0-2) Urine WBC 1-4/HPF (0-4) Urine Squamous Epithelial Cells Mod/LPF Urine Bacteria 0/HPF (0-FEW) Urine Hyaline Casts Moderate/HPF Urine Mucus Slight/LPF Segmented Neutrophils % 86% (35-66) Lymphocytes % 12% (24-48) Monocytes % 2% (0-10) Platelet Estimate Adequate (ADEQUATE) Laboratory Tests Test 09/20/16 12:15 09/20/16 14:28 09/21/16 02:45 Group A Streptococcus Rapid Negative (NEGATIVE) Urine Collection Type Unknown Urine Color Yellow Urine Clarity Clear Urine pH 5.0 Urine Specific [place] 1.015 Urine Protein Negativemg/dL (NEG-TRACE) Urine Glucose (UA) 500mg/dL (NEG) Urine Ketones (Stick) Negativemg/dL (NEG) Urine Blood Negative (NEG) Urine Nitrite Negative (NEG) Urine Bilirubin Negative (NEG) Urine Urobilinogen Dipstick 0.2mg/dL (0.2 mg/dL) Urine Leukocyte Esterase Negative (NEG) Urine RBC 0/HPF (0-2) Urine WBC 1-4/HPF (0-4) Urine Squamous Epithelial Cells Mod/LPF Urine Bacteria 0/HPF (0-FEW) Urine Hyaline Casts Moderate/HPF Urine Mucus Slight/LPF White Blood Count 22.1x10^3/uL (4.0-11.0) Red Blood Count 4.10x10^6/uL (3.50-5.40) Hemoglobin 11.9g/dL (12.0-15.5) Hematocrit 36.5% (36.0-47.0) Mean Corpuscular Volume 89fL (79-100) Mean Corpuscular Hemoglobin 29pg (25-35) Mean Corpuscular Hemoglobin Concent 33g/dL (31-37) Red Cell Distribution Width 13.5% (11.5-14.5) Platelet Count 277x10^3/uL (140-400) Neutrophils (%) (Auto) 89% (31-73) Lymphocytes (%) (Auto) 8% (24-48) Monocytes (%) (Auto) 3% (0-9) Eosinophils (%) (Auto) 0% (0-3) Basophils (%) (Auto) 0% (0-3) Neutrophils # (Auto) 19.7x10^3uL (1.8-7.7) Lymphocytes # (Auto) 1.8x10^3/uL (1.0-4.8) Monocytes # (Auto) 0.6x10^3/uL (0.0-1.1) Eosinophils # (Auto) 0.0x10^3/uL (0.0-0.7) Basophils # (Auto) 0.0x10^3/uL (0.0-0.2) Segmented Neutrophils % 86% (35-66) Lymphocytes % 12% (24-48) Monocytes % 2% (0-10) Platelet Estimate Adequate (ADEQUATE) Sodium Level 140mmol/L (136-145) Potassium Level 3.8mmol/L (3.5-5.1) Chloride Level 103mmol/L (98-107) Carbon Dioxide Level 28mmol/L (21-32) Anion Gap 9 (6-14) Blood Urea Nitrogen 18mg/dL (7-20) Creatinine 0.9mg/dL (0.6-1.0) Estimated GFR (Cockcroft-Gault) 65.2 Glucose Level 186mg/dL (70-99) Calcium Level 9.0mg/dL (8.5-10.1) Medications Current Medications Albuterol/ Ipratropium (Duoneb) 3 ml 1X ONCE NEB Last administered on 01:51; Start 09/20/16 at 01:45; Stop 09/20/16 at 01:46; Status DC Ondansetron HCl (Zofran) 4 mg 1X ONCE IV Last administered on 09/20/16 01:48; Start 09/20/16 at 01:45; Stop 09/20/16 at 01:46; Status DC Methylprednisolone Sodium Succinate (Solu-Medrol 125mg Vial) 125 mg 1X ONCE IV Last administered on 09/20/16 02:41; Start 09/20/16 at 02:30; Stop 09/20/16 at 02:31; Status DC Ondansetron HCl (Zofran) 4 mg PRN Q8HRS PRN IV NAUSEA/VOMITING Last administered on 09/20/16 11:08; Start 09/20/16 at 03:00; Stop 09/21/16 at 02:59; Status DC Albuterol/ Ipratropium (Duoneb) 3 ml RTQID NEB Last administered on 09/20/16 07 :10; Start 09/20/16 at 08:00; Stop 09/20/16 at 09:40; Status DC Lidocaine HCl 2 ml ONCE ONCE IJ ; Start 09/20/16 at 03:00; Stop 09/20/16 at 03:01 ; Status DC Ibuprofen (Motrin) 400 mg TID PRN PRN PO INFLAMMATION Last administered on 10:19; Start 09/20/16 at 05:00 Guaifenesin (Robitussin) 600 mg PRN BID PRN PO COUGH; Start 09/20/16 at 05:00; Stop 09/20/16 at 05:06; Status DC Guaifenesin (Mucinex) 600 mg PRN BID PRN PO COUGH Last administered on 05:14; Start 09/20/16 at 05:06 Info (Do NOT chart on this placeholder) 0.5 each 1X ONCE MC ; Start 09/20/16 at 06:15; Stop 09/20/16 at 06:16; Status UNV Influenza Virus Vaccine Quadrival (Fluarix Quad [id number] Syringe) 0.5 ml ONCE ONCE VAX IM ; Start 09/20/16 at 09:00; Stop 09/20/16 at 09:01; Status DC Atorvastatin Calcium (Lipitor) 40 mg QHS PO Last administered on 09/20/16 21:35 ; Start 09/20/16 at 21:00 Carvedilol (Coreg) 6.25 mg BIDWMEALS PO Last administered on 09/20/16 17:44; Start 09/20/16 at 10:00 Famotidine (Pepcid) 20 mg QHS PO Last administered on 09/20/16 21:35; Start 09/20/16 at 21:00 Furosemide (Lasix) 40 mg DAILY PO Last administered on 09/20/16 10:20; Start at 10:00 Lisinopril (Prinivil) 2.5 mg QHS PO Last administered on 09/20/16 21:38; Start 09/20/16 at 21:00 Nicotine Polacrilex (Nicorette Gum) 2 each PRN Q2HRS PRN BC SMOKING CESSATION; Start 09/20/16 at 09:30 Prasugrel (Effient) 10 mg DAILYWBKFT PO Last administered on 09/21/16 08:08; Start 09/20/16 at 10:00 Methylprednisolone Sodium Succinate (Solu-Medrol 40mg Vial) 40 mg Q8HRS IV Last administered on 09/21/16 05:39; Start 09/20/16 at 14:00 Nicotine (Nicoderm Cq 21mg) 1 patch PRN DAILY PRN TD SMOKING CESSATION Last administered on 09/21/16 05:43; Start 09/20/16 at 09:45 Albuterol/ Ipratropium (Duoneb) 3 ml RTQID NEB Last administered on 09/20/16 15 :16; Start 09/20/16 at 12:00 Doxycycline Hyclate (Vibra-Tab) 100 mg BID PO Last administered on 09/21/16 08: 08; Start 09/20/16 at 10:30 Guaifenesin (Robitussin Dm) 10 ml PRN Q6HRS PRN PO COUGH; Start 09/20/16 at 09: 45 Pantoprazole Sodium (Protonix) 40 mg DAILYAC PO Last administered on 09/21/16 08:08; Start 09/20/16 at 11:00 Aspirin (Ecotrin) 325 mg DAILYWBKFT PO Last administered on 09/21/16 08:08; Start 09/20/16 at 13:00 Metoclopramide HCl (Reglan) 5 mg 1X ONCE IV Last administered on 09/20/16 16: 01; Start 09/20/16 at 16:00; Stop 09/20/16 at 16:01; Status DC Active Scripts Active Carvedilol 6.25 Mg Tablet 6.25 Mg PO BIDWMEALS SIG: ONE P.O. BID Atorvastatin Calcium 40 Mg Tablet 40 Mg PO QHS SIG: ONE P.O. AT BEDTIME Famotidine 20 Mg Tablet 20 Mg PO QHS SIG: ONE P.O. AT BEDTIME Effient (Prasugrel Hcl) 10 Mg Tablet 10 Mg PO DAILYWBKFT SIG: ONE P.O. DAILY; MAY NOT STOP WITHOUT AUTHORIZATION FROM CARDIOLOGY Lisinopril 2.5 Mg Tablet 2.5 Mg PO QHS SIG: ONE P.O. AT BEDTIME Furosemide 40 Mg Tablet 40 Mg PO DAILY SIG: ONE DAILY Reported Nicorette (Nicotine Polacrilex) 2 Mg Gum 2 Mg BC PRN Q2HRS PRN Vitals/I & O Vital Sign - Last 24 Hours 09/20/16 09/20/16 09/20/16 09/20/16 10:21 11:03 11:16 15:07 Temp 97.7 97.7 97.7 97.7 Pulse 94 105 102 Resp 20 20 B/P 124/68 128/67 119/60 Pulse Ox 97 96 O2 Delivery Room Air Room Air Room Air 09/20/16 09/20/16 09/20/16 09/20/16 15:17 17:44 19:00 20:00 Temp 97.7 97.7 Pulse 102 99 Resp 18 B/P 119/60 108/60 Pulse Ox 99 O2 Delivery Room Air Room Air Room Air 09/20/16 09/20/16 09/21/16 09/21/16 21:38 23:00 03:00 07:12 Temp 97.9 97.9 97.7 97.9 97.9 97.7 Pulse 108 107 100 99 Resp 18 18 18 B/P 120/57 121/52 122/50 106/58 Pulse Ox 99 98 94 O2 Delivery Room Air Room Air Room Air 09/21/16 08:00 O2 Delivery Room Air Intake and Output 09/20/16 09/20/16 09/21/16 15:00 23:00 07:00 Intake Total 240 ml 360 ml 240 ml Balance 240 ml 360 ml 240 ml PERFECTO MAR MD Sep 21, 2016 09:49
[2016-09-21 10:05] VITALS: BP 105/56
[2016-09-21 14:10] VITALS: BP 122/57
[2016-09-21] MEDS ORDERED: ALBUTEROL SULFATE 2.5 MG/3 ML NEBU. NEB PRN (15:30)
[2016-09-21 19:00] VITALS: BP 111/48
[2016-09-21] MEDS: FAMOTIDINE 20 MG TABLET. PO SCH (21:04)
[2016-09-21] MEDS: IBUPROFEN 400 MG TABLET. PO PRN (21:04)
[2016-09-21] MEDS: LISINOPRIL 2.5 MG TABLET PO SCH (21:05)
[2016-09-21] MEDS: ATORVASTATIN CALCIUM 40 MG TABLET. PO SCH (21:05)
[2016-09-21 23:00] VITALS: BP 115/40
[2016-09-22 03:00] VITALS: BP 147/78
[2016-09-22] MEDS: methylPREDNISolone SOD SUCC PF 40 MG/ML VIAL. IV SCH ×2 (05:08→13:59)
[2016-09-22] MEDS: IPRATRPIUM/ALBUTEROL 0.5/2.5MG 3 ML NEBU. NEB SCH ×3 (07:07→14:43)
[2016-09-22 07:15] VITALS: BP 152/67
[2016-09-22] MEDS: FUROSEMIDE 40 MG TABLET PO SCH (07:44)
[2016-09-22] MEDS: DOXYCYCLINE HYCLATE 100 MG TABLET PO SCH (07:44)
[2016-09-22] MEDS: FAMOTIDINE 20 MG TABLET. PO SCH (07:44)
[2016-09-22] MEDS: CARVEDILOL 6.25 MG TABLET PO SCH (07:44)
[2016-09-22] MEDS: PANTOPRAZOLE 40 MG TABLET. PO SCH (07:44)
[2016-09-22] MEDS: ASPIRIN ENTERIC COATED 325 MG TABLET.DR. PO SCH (07:44)
[2016-09-22] MEDS: PRASUGREL 10 MG TABLET. PO SCH (07:44)
[2016-09-22] MEDS: NICOTINE 21MG PATCH. TD PRN (07:45)
[2016-09-22 10:20] VITALS: BP 119/58
--- NOTE | 2016-09-22 11:28 | PDOC ---
PROGRESS NOTES Chief Complaint Chief Complaint - Chronic obstructive pulmonary disease exacerbation. - History of ischemic cardiomyopathy. - Coronary artery disease, active smoking. - Hypertension. History of Present Illness History of Present Illness Patient sitting up in bed when evaluated this morning. In regard to her COPD history and trouble breathing, she describes today as, "a good day for me." Wants to go home, so that she can get back to work. Is a current smoker, and smoking cessation was briefly discussed. Nicotine patch has adequately controlled cravings while admitted. Has refused duoneb treatments due to stomach upset and fear of vomiting. Vitals Vitals Vital Signs Date Time Temp Pulse Resp B/P Pulse Ox O2 Delivery O2 Flow Rate FiO2 09/22/16 10:20 97.9 87 18 119/58 95 Room Air 97.9 Physical Exam General: Alert, Oriented X3, Cooperative, No acute distress Heart: Regular rate, Normal S1, Normal S2, Other (2/6 systolic murmur ) Lungs: Wheezing, Other Abdomen: Soft, No tenderness Extremities: No cyanosis, Other Skin: No breakdown, No significant lesion Review of Systems Review of Systems denies fever, chills denies chest pain + SOA, longstanding Assessment and Plan Assessmemt and Plan ASSESSMENT: - Chronic obstructive pulmonary disease exacerbation. - History of ischemic cardiomyopathy. - Coronary artery disease, active smoking. - Hypertension. PLAN: - cont IV solumedrol - cont nebulizations as tolerated; pt has declined duonebs so far, due to stomach upset. - consulting Pulmonology - cont doxycycline - discussed smoking cessation - cardiology workup in progress. - appreciate subspecialty input. Problems: Comment Review of Relevant I have reviewed the following items harjeet (where applicable) has been applied. Labs Laboratory Tests Test 09/20/16 12:15 09/20/16 14:28 09/21/16 02:45 Group A Streptococcus Rapid Negative (NEGATIVE) Urine Collection Type Unknown Urine Color Yellow Urine Clarity Clear Urine pH 5.0 Urine Specific [place] 1.015 Urine Protein Negativemg/dL (NEG-TRACE) Urine Glucose (UA) 500mg/dL (NEG) Urine Ketones (Stick) Negativemg/dL (NEG) Urine Blood Negative (NEG) Urine Nitrite Negative (NEG) Urine Bilirubin Negative (NEG) Urine Urobilinogen Dipstick 0.2mg/dL (0.2 mg/dL) Urine Leukocyte Esterase Negative (NEG) Urine RBC 0/HPF (0-2) Urine WBC 1-4/HPF (0-4) Urine Squamous Epithelial Cells Mod/LPF Urine Bacteria 0/HPF (0-FEW) Urine Hyaline Casts Moderate/HPF Urine Mucus Slight/LPF White Blood Count 22.1x10^3/uL (4.0-11.0) Red Blood Count 4.10x10^6/uL (3.50-5.40) Hemoglobin 11.9g/dL (12.0-15.5) Hematocrit 36.5% (36.0-47.0) Mean Corpuscular Volume 89fL (79-100) Mean Corpuscular Hemoglobin 29pg (25-35) Mean Corpuscular Hemoglobin Concent 33g/dL (31-37) Red Cell Distribution Width 13.5% (11.5-14.5) Platelet Count 277x10^3/uL (140-400) Neutrophils (%) (Auto) 89% (31-73) Lymphocytes (%) (Auto) 8% (24-48) Monocytes (%) (Auto) 3% (0-9) Eosinophils (%) (Auto) 0% (0-3) Basophils (%) (Auto) 0% (0-3) Neutrophils # (Auto) 19.7x10^3uL (1.8-7.7) Lymphocytes # (Auto) 1.8x10^3/uL (1.0-4.8) Monocytes # (Auto) 0.6x10^3/uL (0.0-1.1) Eosinophils # (Auto) 0.0x10^3/uL (0.0-0.7) Basophils # (Auto) 0.0x10^3/uL (0.0-0.2) Segmented Neutrophils % 86% (35-66) Lymphocytes % 12% (24-48) Monocytes % 2% (0-10) Platelet Estimate Adequate (ADEQUATE) Sodium Level 140mmol/L (136-145) Potassium Level 3.8mmol/L (3.5-5.1) Chloride Level 103mmol/L (98-107) Carbon Dioxide Level 28mmol/L (21-32) Anion Gap 9 (6-14) Blood Urea Nitrogen 18mg/dL (7-20) Creatinine 0.9mg/dL (0.6-1.0) Estimated GFR (Cockcroft-Gault) 65.2 Glucose Level 186mg/dL (70-99) Calcium Level 9.0mg/dL (8.5-10.1) Microbiology 09/20/16 Throat Culture - Preliminary, Resulted 09/20/16 - Preliminary, Resulted Medications Current Medications Albuterol/ Ipratropium (Duoneb) 3 ml 1X ONCE NEB Last administered on 01:51; Start 09/20/16 at 01:45; Stop 09/20/16 at 01:46; Status DC Ondansetron HCl (Zofran) 4 mg 1X ONCE IV Last administered on 09/20/16 01:48; Start 09/20/16 at 01:45; Stop 09/20/16 at 01:46; Status DC Methylprednisolone Sodium Succinate (Solu-Medrol 125mg Vial) 125 mg 1X ONCE IV Last administered on 09/20/16 02:41; Start 09/20/16 at 02:30; Stop 09/20/16 at 02:31; Status DC Ondansetron HCl (Zofran) 4 mg PRN Q8HRS PRN IV NAUSEA/VOMITING Last administered on 09/20/16 11:08; Start 09/20/16 at 03:00; Stop 09/21/16 at 02:59; Status DC Albuterol/ Ipratropium (Duoneb) 3 ml RTQID NEB Last administered on 09/20/16 07 :10; Start 09/20/16 at 08:00; Stop 09/20/16 at 09:40; Status DC Lidocaine HCl 2 ml ONCE ONCE IJ ; Start 09/20/16 at 03:00; Stop 09/20/16 at 03:01 ; Status DC Ibuprofen (Motrin) 400 mg TID PRN PRN PO INFLAMMATION Last administered on 21:04; Start 09/20/16 at 05:00 Guaifenesin (Robitussin) 600 mg PRN BID PRN PO COUGH; Start 09/20/16 at 05:00; Stop 09/20/16 at 05:06; Status DC Guaifenesin (Mucinex) 600 mg PRN BID PRN PO COUGH Last administered on 05:14; Start 09/20/16 at 05:06 Info (Do NOT chart on this placeholder) 0.5 each 1X ONCE MC ; Start 09/20/16 at 06:15; Stop 09/20/16 at 06:16; Status UNV Influenza Virus Vaccine Quadrival (Fluarix Quad [id number] Syringe) 0.5 ml ONCE ONCE VAX IM ; Start 09/20/16 at 09:00; Stop 09/20/16 at 09:01; Status DC Atorvastatin Calcium (Lipitor) 40 mg QHS PO Last administered on 09/21/16 21:05 ; Start 09/20/16 at 21:00 Carvedilol (Coreg) 6.25 mg BIDWMEALS PO Last administered on 09/22/16 07:44; Start 09/20/16 at 10:00 Famotidine (Pepcid) 20 mg QHS PO Last administered on 09/20/16 21:35; Start 09/20/16 at 21:00; Stop 09/21/16 at 15:13; Status DC Furosemide (Lasix) 40 mg DAILY PO Last administered on 09/22/16 07:44; Start at 10:00 Lisinopril (Prinivil) 2.5 mg QHS PO Last administered on 09/21/16 21:05; Start 09/20/16 at 21:00 Nicotine Polacrilex (Nicorette Gum) 2 each PRN Q2HRS PRN BC SMOKING CESSATION; Start 09/20/16 at 09:30 Prasugrel (Effient) 10 mg DAILYWBKFT PO Last administered on 09/22/16 07:44; Start 09/20/16 at 10:00 Methylprednisolone Sodium Succinate (Solu-Medrol 40mg Vial) 40 mg Q8HRS IV Last administered on 09/22/16 05:08; Start 09/20/16 at 14:00 Nicotine (Nicoderm Cq 21mg) 1 patch PRN DAILY PRN TD SMOKING CESSATION Last administered on 09/22/16 07:45; Start 09/20/16 at 09:45 Albuterol/ Ipratropium (Duoneb) 3 ml RTQID NEB Last administered on 09/20/16 15 :16; Start 09/20/16 at 12:00 Doxycycline Hyclate (Vibra-Tab) 100 mg BID PO Last administered on 09/22/16 07: 44; Start 09/20/16 at 10:30 Guaifenesin (Robitussin Dm) 10 ml PRN Q6HRS PRN PO COUGH Last administered on 17:06; Start 09/20/16 at 09:45 Pantoprazole Sodium (Protonix) 40 mg DAILYAC PO Last administered on 09/22/16 07:44; Start 09/20/16 at 11:00 Aspirin (Ecotrin) 325 mg DAILYWBKFT PO Last administered on 09/22/16 07:44; Start 09/20/16 at 13:00 Metoclopramide HCl (Reglan) 5 mg 1X ONCE IV Last administered on 09/20/16 16: 01; Start 09/20/16 at 16:00; Stop 09/20/16 at 16:01; Status DC Famotidine (Pepcid) 20 mg BID PO Last administered on 09/22/16 07:44; Start 09/21/16 at 21:00 Albuterol Sulfate (Ventolin Neb Soln) 2.5 mg PRN Q4HRS PRN NEB SHORTNESS OF BREATH; Start 09/21/16 at 15:30 Active Scripts Active Carvedilol 6.25 Mg Tablet 6.25 Mg PO BIDWMEALS SIG: ONE P.O. BID Atorvastatin Calcium 40 Mg Tablet 40 Mg PO QHS SIG: ONE P.O. AT BEDTIME Famotidine 20 Mg Tablet 20 Mg PO QHS SIG: ONE P.O. AT BEDTIME Effient (Prasugrel Hcl) 10 Mg Tablet 10 Mg PO DAILYWBKFT SIG: ONE P.O. DAILY; MAY NOT STOP WITHOUT AUTHORIZATION FROM CARDIOLOGY Lisinopril 2.5 Mg Tablet 2.5 Mg PO QHS SIG: ONE P.O. AT BEDTIME Furosemide 40 Mg Tablet 40 Mg PO DAILY SIG: ONE DAILY Reported Nicorette (Nicotine Polacrilex) 2 Mg Gum 2 Mg BC PRN Q2HRS PRN Vitals/I & O Vital Sign - Last 24 Hours 09/21/16 09/21/16 09/21/16 09/21/16 14:10 17:07 19:00 20:00 Temp 97.6 97.9 97.6 97.9 Pulse 105 111 106 Resp 18 18 B/P 122/57 122/60 111/48 Pulse Ox 93 92 O2 Delivery Room Air Room Air Room Air 09/21/16 09/21/16 09/22/16 09/22/16 21:05 23:00 03:00 07:08 Temp 97.7 97.7 97.7 97.7 Pulse 106 104 96 Resp 18 18 B/P 111/48 115/40 147/78 Pulse Ox 95 97 98 O2 Delivery Room Air Room Air Room Air 09/22/16 09/22/16 09/22/16 09/22/16 07:15 07:44 08:00 10:20 Temp 96.6 97.9 96.6 97.9 Pulse 93 93 87 Resp 18 18 B/P 152/67 152/67 119/58 Pulse Ox 96 95 O2 Delivery Room Air Room Air Room Air Intake and Output 09/21/16 09/21/16 09/22/16 15:00 23:00 07:00 Intake Total 300 ml 0 ml Balance 300 ml 0 ml ALIREZA GUERRERO III DO Sep 22, 2016 11:28
== END 2016-09-22 15:00 | disposition left against medical advice (07) | DRG 191 ==
LOC: ER 00:57 → 5 NORTH 02:49
PROVIDERS: ADMIT Internal Medicine; ATTEND Internal Medicine
DX: J44.1 Chronic obstructive pulmonary disease with (acute) exacerbation (principal); I50.22 Chronic systolic (congestive) heart failure; I11.0 Hypertensive heart disease with heart failure; I25.5 Ischemic cardiomyopathy; I25.10 Atherosclerotic heart disease of native coronary artery without angina pectoris; Z53.21 Procedure and treatment not carried out due to patient leaving prior to being seen by health care provider; F17.210 Nicotine dependence, cigarettes, uncomplicated; E11.9 Type 2 diabetes mellitus without complications; E78.5 Hyperlipidemia, unspecified; J06.9 Acute upper respiratory infection, unspecified; K21.9 Gastro-esophageal reflux disease without esophagitis; M17.0 Bilateral primary osteoarthritis of knee; Z90.710 Acquired absence of both cervix and uterus; Z88.6 Allergy status to analgesic agent; Z88.8 Allergy status to other drugs, medicaments and biological substances; Z95.5 Presence of coronary angioplasty implant and graft; Z79.899 Other long term (current) drug therapy; Z71.6 Tobacco abuse counseling; Z79.82 Long term (current) use of aspirin; Z82.49 Family history of ischemic heart disease and other diseases of the circulatory system
CPT/HCPCS: 36415; 71010; 80048; 80061; 81001; 83036; 83880; 84484; 85007; 85027; 87070; 87804; 87880; 93005; 93306; 94250; 94640; 94760; 96374; 96375; J2405; J2765; J2920; J2930; J7620; 99285-25

== ENCOUNTER 2017-01-03 23:46 | Inpatient (IN) | payer BC, OTHER ==
[~2017-01-03] VITALS: Ht 170.2 cm; Wt 97.1 kg
[~2017-01-03 23:46] MED LIST changes: -PRAS10TA4 PO; +PRAS10TA9 PO
[2017-01-04 00:20] LABS: BASO # 0.1 x10^3/uL (0.0-0.2); BASO % 1 % (0-3); EOS % 6 % (0-3); HEMATOCRIT 38.7 % (36.0-47.0); HEMOGLOBIN 12.7 g/dL (12.0-15.5); LYMPH # 3.4 x10^3/uL (1.0-4.8); LYMPH % 41 % (24-48); MEAN CORPUSCULAR HEMOGLOBIN 29 pg (25-35); MEAN CORPUSCULAR HGB CONC 33 g/dL (31-37); MEAN CORPUSCULAR VOLUME 89 fL (79-100); MONO % 6 % (0-9); NEUT % 46 % (31-73); PLATELET COUNT 247 x10^3/uL (140-400); RED BLOOD COUNT 4.36 x10^6/uL (3.50-5.40); RED CELL DISTRIBUTION WIDTH 13.6 % (11.5-14.5); WHITE BLOOD COUNT 8.3 x10^3/uL (4.0-11.0)
[2017-01-04 00:33] LABS: CALCIUM 8.5 mg/dL (8.5-10.1); GFR 57.6; POTASSIUM 3.7 mmol/L (3.5-5.1)
[2017-01-04 00:40] LABS: ALBUMIN 3.4 g/dL (3.4-5.0); TOTAL BILIRUBIN 0.2 mg/dL (0.2-1.0); TOTAL PROTEIN 6.7 g/dL (6.4-8.2)
[2017-01-04] MEDS ORDERED: ONDANSETRON PF 4 MG/2 ML VIAL. IV ONE ×2 (00:45→01:45)
[2017-01-04] MEDS ORDERED: methylPREDNISolone SOD SUCC PF 125 MG/2 ML VIAL. IV ONE (00:45)
[2017-01-04] MEDS ORDERED: IPRATRPIUM/ALBUTEROL 0.5/2.5MG 3 ML NEBU. NEB ONE (00:45)
[2017-01-04] MEDS ORDERED: ALBUTEROL SULFATE 2.5 MG/3 ML NEBU. NEB ONE (02:00)
--- NOTE | 2017-01-04 02:00 | PHYS DOC ---
Past Medical History Past Medical History: CHF, COPD, Hypertension Additional Past Medical Histor: ectopic , CARDIAC STENTS Past Surgical History: Hysterectomy Additional Past Surgical Histo: 8 LEFT KNEE PROCEDURES Alcohol Use: Occasionally Drug Use: None Adult General Chief Complaint Chief Complaint: CHEST PAIN HPI HPI Patient is a 56 year old female with a history significant for hypertension, CHF, COPD, status post stents several years ago, positive tobacco, presents here today complaining of left-sided chest pain radiating to her shoulder. Patient describes the pain as a pressure-type sensation. She reports the pain radiates to her left arm. Patient reports that it increases with exertion. Patient also reports she's had a brown productive cough. Patient has any fevers shakes chills nausea vomiting diarrhea or abdominal pain. Patient reports that the pain does increase when she coughs however she reports that the sharp pain however she does also have a baseline pressure-type sensation as well. Patient's physical exam was remarkable for diffuse inspiratory and expiratory wheezing. Patient does have some tenderness to palpation to her left anterior chest wall however she reports this is dissimilar to the pain that made her come to the ER today. Patient's ER workup has been unremarkable thus far. Patient's CBC chemistry troponin was negative. Patient's chest x-ray does not reveal any infiltrates or effusions. Patient's EKG reveals normal sinus rhythm with nonspecific ST-T wave abnormalities and no evidence of ST elevation CA. Assessment and plan this is a 56-year-old female who presents to the ER today with sharp chest pain as well as chest pressure. Patient reports that the sharp chest pain increases when she coughs or takes deep inspiration. Patient reports that she's had a brown productive cough. Patient does have a history of COPD in the past. Patient reports that whenever utilizes albuterol she does vomit. Patient also describes a left-sided chest pressure that radiating down to her left arm. While in the ER the patient was given an albuterol treatment and she did have an episode of emesis after that. Patient was given IV Solu-Medrol. Patient was given aspirin. Patient will be admitted to the hospital for further cardiac evaluation of her chest pain. Patient is at high risk given her history of hypertension and her stents in the past. Review of Systems Review of Systems Constitutional: Denies fever or chills [] Eyes: Denies change in visual acuity, redness, or eye pain [] All other review systems are negative except as documented in the history of present illness portion. Current Medications Current Medications Current Medications Medications (Trade) Dose Ordered Sig/Mary Start Time Stop Time Status Last Admin Dose Admin Albuterol/ Ipratropium (Duoneb) 3 ml 1X ONCE 01/04/17 00:45 01/04/17 00:46 DC 01/04/17 01:11 3 ML Methylprednisolone Sodium Succinate (SOLU-Medrol 125MG VIAL) 125 mg 1X ONCE 01/04/17 00:45 01/04/17 00:46 DC 01/04/17 00:45 125 MG Ondansetron HCl (Zofran) 4 mg 1X ONCE 01/04/17 00:45 01/04/17 00:46 DC 01/04/17 00:45 4 MG Allergies Allergies Allergies Coded Allergies Type Severity Reaction Last Updated Verified codeine Allergy Severe Anaphylaxis 08/04/14 Yes ketorolac Allergy Severe Anaphylaxis 08/04/14 Yes diphenhydramine Allergy Intermediate Hives 06/19/16 Yes Physical Exam Physical Exam Constitutional: Well developed, well nourished, no acute distress, non-toxic appearance. [] HENT: Normocephalic, atraumatic, bilateral external ears normal, oropharynx moist, no oral exudates, nose normal. [] Eyes: PERRLA, EOMI, conjunctiva normal, no discharge. [] Neck: Normal range of motion, no tenderness, supple, no stridor. [] Cardiovascular:Heart rate regular rhythm, Lungs & Thorax: Bilateral breath sounds clear to auscultation. Diffuse is within next or wheezing. [] Abdomen: Bowel sounds normal, soft, no tenderness, no masses, no pulsatile masses. [] Skin: Warm, dry, no erythema, no rash. [] Back: No tenderness, no CVA tenderness. [] Extremities: No tenderness, no cyanosis, no clubbing, ROM intact, no edema. [] Neurologic: Alert and oriented X 3, normal motor function, normal sensory function, no focal deficits noted. [] Psychologic: Affect normal, judgement normal, mood normal. [] Current Patient Data Vital Signs Vital Signs Date Time Temp Pulse Resp B/P (MAP) Pulse Ox O2 Delivery O2 Flow Rate FiO2 01/03/17 23:52 98.4 100 18 149/70 (96) 97 Room Air 98.4 Lab Values Laboratory Tests Test 01/04/17 00:10 White Blood Count 8.3 x10^3/uL (4.0-11.0) Red Blood Count 4.36 x10^6/uL (3.50-5.40) Hemoglobin 12.7 g/dL (12.0-15.5) Hematocrit 38.7 % (36.0-47.0) Mean Corpuscular Volume 89 fL (79-100) Mean Corpuscular Hemoglobin 29 pg (25-35) Mean Corpuscular Hemoglobin Concent 33 g/dL (31-37) Red Cell Distribution Width 13.6 % (11.5-14.5) Platelet Count 247 x10^3/uL (140-400) Neutrophils (%) (Auto) 46 % (31-73) Lymphocytes (%) (Auto) 41 % (24-48) Monocytes (%) (Auto) 6 % (0-9) Eosinophils (%) (Auto) 6 % (0-3) H Basophils (%) (Auto) 1 % (0-3) Neutrophils # (Auto) 3.8 x10^3uL (1.8-7.7) Lymphocytes # (Auto) 3.4 x10^3/uL (1.0-4.8) Monocytes # (Auto) 0.5 x10^3/uL (0.0-1.1) Eosinophils # (Auto) 0.5 x10^3/uL (0.0-0.7) Basophils # (Auto) 0.1 x10^3/uL (0.0-0.2) Sodium Level 141 mmol/L (136-145) Potassium Level 3.7 mmol/L (3.5-5.1) Chloride Level 105 mmol/L (98-107) Carbon Dioxide Level 29 mmol/L (21-32) Anion Gap 7 (6-14) Blood Urea Nitrogen 12 mg/dL (7-20) Creatinine 1.0 mg/dL (0.6-1.0) Estimated GFR (Cockcroft-Gault) 57.6 BUN/Creatinine Ratio 12 (6-20) Glucose Level 167 mg/dL (70-99) H Calcium Level 8.5 mg/dL (8.5-10.1) Total Bilirubin 0.2 mg/dL (0.2-1.0) Aspartate Amino Transferase (AST) 14 U/L (15-37) L Alanine Aminotransferase (ALT) 18 U/L (14-59) Alkaline Phosphatase 104 U/L (46-116) Troponin I Quantitative < 0.017 ng/mL (0.000-0.055) Total Protein 6.7 g/dL (6.4-8.2) Albumin 3.4 g/dL (3.4-5.0) Albumin/Globulin Ratio 1.0 (1.0-1.7) Laboratory Tests 01/04/17 00:10 Laboratory Tests 01/04/17 00:10 EKG EKG [] Radiology/Procedures Radiology/Procedures [] Course & Med Decision Making Course & Med Decision Making Pertinent Labs and Imaging studies reviewed. (See chart for details) [] Dragon Disclaimer Dragon Disclaimer This electronic medical record was generated, in whole or in part, using a voice recognition dictation system. Departure Departure Impression: Primary Impression: Cardiac chest pain Additional Impressions: COPD exacerbation Nonspecific chest pain Disposition: 09 ADMITTED INPATIENT Admitting Physician: Any Thomas Condition: IMPROVED Referrals: NO PCP (PCP) Problem Qualifiers ALEAH MEREDITH MD Jan 04, 2017 02:00
[2017-01-04 02:10] VITALS: BP 150/84
[2017-01-04] MEDS: ACETAMINOPHEN 325 MG TABLET. PO PRN ×2 (02:39→19:47)
[2017-01-04] MEDS ORDERED: NICO1PAT21 TP (02:49)
--- NOTE | 2017-01-04 04:27 | ACF ---
Admission Forms Criteria CARDIOLOGY GRG Clinical Indications for Admission to Inpatient Care ( Place 'X' for any and all applicable criteria): Hospital admission is needed for appropriate care of the patient because of ANY ONE of the following (1): [ ] I. Hemodynamic instability as indicated by ALL of the following (1)(2)(3) (4)(5) [ ]a) Vital signs or other findings not as expected for chronic patient condition or baseline [ ]b) Instability indicated by ANY ONE of the following: [ ]i) Hypotension [ ]ii) Symptomatic Tachycardia unresponsive to treatment ( e.g., analgesia, fluids, sedation as indicated) [ ]iii) Inadequate perfusion indicated by ANY ONE of the following: [ ] 1) Lactic acidosis (> 2 mmol/L) [ ] 2) New abnormal capillary refill (> 3 seconds) [ ] 3) Reduced urine output [ ] 4) New altered mental status [ ]iv) Orthostatic vital sign changes unresponsive to treatment (e.g., fluids) [ ]v) IV inotropic or vasopressor medication required to maintain adequate blood pressure or perfusion [ ] II. Severe heart failure as indicated by ANY ONE of the following(17)(18) [ ]a) Respiratory distress [ ]b) Hypotension [ ]c) Anasarca (refractory to outpatient therapy) [ ]d) Cardiac arrhythmias of immediate concern [ ]e) Myocardial ischemia [ ] III. Cardiac arrhythmias or findings of immediate concern indicated by ANY ONE of the following (19)(20): [ ] a) Heart rhythms that are inherently dangerous or unstable indicated by ANY ONE of the following (21)(22)(23): [ ] i) Resuscitated ventricular fibrillation or cardiac arrest [ ] ii) Ventricular escape rhythm [ ] iii) Sustained ventricular tachycardia (30 seconds or more of ventricular rhythm at greater than 100 beats per minute) [ ] iv) Nonsustained ventricular tachycardia and ANY ONE of the following: [ ] 1) Suspected cardiac ischemia as cause or consequence of ventricular tachycardia [ ] 2) In setting of acute myocarditis [ ] b) Unstable cardiac conduction defects indicated by ANY ONE of the following(23)(24)(25) [ ] i) Type II second-degree atrioventricular block [ ]ii) Third-degree atrioventricular block [ ]iii) New-onset left bundle branch block with suspected myocardial ischemia [ ]c) Any heart rhythm and ANY ONE of the following (21)(22)(26)(27) (28) [ ] i) Continuous long-term ECG monitoring needed (e.g., initiation of drug requiring monitoring for more than 24 hours) [ ] ii) Patient has automatic implanted cardioverter defibrillator that is repeatedly firing, malfunctioning, or in need of immediate adjustment of settings beyond the scope of ambulatory or observation care [ ]d) Heart rhythms of concern due to ANY ONE of the following: [ ] i) Hypotension [ ] ii) Respiratory distress [ ] iii) Association with other significant symptoms (e.g., bradycardia with syncope or ongoing dizziness, supraventricular tachycardia with chest pain (14)(15)(17) [ ] IV. Monitoring for cardiac contusion beyond the scope of observation care needed [A](30)(31)(32) [ ] V. Surgical or device complication (e.g., valve replacement complication , pacemaker dysfunction) (35)(41)(44)(45)(46) [ ] . Inpatient palliative care needed. [B](49) Also use Inpatient Palliative Care Criteria [ ] VII. Nonbacterial thrombotic (marantic) endocarditis (36)(43)(47)(48) [X] VIII. Cardiology condition, symptom, or finding for which emergency and observation care has failed or are not considered appropriate. [ ] IX. Acute valvular disease requiring inpatient as indicated by ANY ONE of the following (41) [ ]a) Acute valvular regurgitation (42) [ ]b) Noninfectious valvulitis (43) [ ]c) Obstructive valve thrombosis [ ]d) Paravalvular leak [ ]e) Other significant valvular disorder remaining after emergency or observation level of care (as appropriate) [ ]X. Pericardial disease requiring inpatient treatment as indicated by ANY ONE of the following (33)(34)(35)(36)(37) [ ]a) Suspected tamponade (38)(39)(40) [ ]b) Hemopericardium [ ]c) Other significant pericardial disorder remaining after emergency or observation level of care (as appropriate) [ ] XI. Cardiac ischemia beyond scope of emergency and observation care. [ ] XII. Hypertension requiring inpatient treatment as indicated by ANY ONE of the following (6)(7)(8) [ ]a) SBP greater than 220 mm Hg or DBP greater than 120 mmHg despite treatment [ ]b) SBP greater than 140 mm Hg or DBP greater than 100 mm Hg with evidence of acute end organ damage as indicated by ANY ONE of the following [ ] i) Encephalopathy [ ] ii) Acute renal failure as indicated by new onset of ANY ONE of the following (9)(10)(11)(12)(13) [ ]1) 3-fold rise in serum creatinine from baseline [ ]2) Serum creatinine greater than 4 mg/dL ( 354 micromoles/L) with acute rise greater than 0.5 mg/dL (44.2 micromoles/L) [ ]3) Reduction of more than 75% in estimated glomerular filtration rate from baseline [ ]4) Estimated glomerular filtration rate less than 35 mL/min/1.73m2 (0.59 mL/sec/1.73m2) in child up to 18 years of age [ ]5) Cessation of urine output indicated by ALL of the following [ ]A. Adequate volume status [ ]B. Inadequate urine output as indicated by ANY ONE of the following [ ]a. Urine output less than 0.3 mL/kg/hr for 24 hours [ ]b. Anuria (urine output less than 0.1 mL/kg/hr) for 12 hours [ ] iii) Aortic dissection [ ] iv) Myocardial Ischemia [ ] v) Left ventricular heart failure [ ]vi) Retinal Hemorrhage [ ]vii) Other significant finding [ ]c) Hypertension in child requiring inpatient treatment as indicated by ALL of the following(14)(15)(16) [ ] i) Outpatient treatment not effective, not available, or not appropriate [ ]ii) SBP or DBP greater than 95th percentile for age [ ]iii) Evidence of acute end organ damage as indicated by ANY ONE of the following [ ]1) Altered mental status [ ]2) Acute renal failure as indicated by new onset of ANY ONE of the following(9)(10)(11)(12)(13) [ ]A. 3-fold rise in serum creatinine from baseline [ ]B. Serum creatinine greater than 4 mg/dL (354 micromoles/L) with acute rise greater than 0.5 mg/dL (44.2 micromoles/L) [ ]C. Reduction of more than 75% in estimated glomerular filtration rate from baseline [ ]D. Estimated glomerular filtration rate less than 35 mL/min/1.73m2 (0.59 mL/sec/1.73m2) in child up to 18 years of age [ ]E. Cessation of urine output indicated by ALL of the following [ ]a. Adequate volume status [ ]b. Inadequate urine output as indicated by ANY ONE of the following [ ]i) Urine output less than 0.3 mL/kg/hr for 24 hours [ ]ii) Anuria ( urine output less than 0.1 mL/kg/hr) for 12 hours [ ]3) Severe headache [ ]4) Visual disturbance [ ]5) Retinal hemorrhage [ ]6) Other significant finding [ ]XIII. Complications of transplanted heart indicated by ANY ONE of the following(61): [ ]a) Acute graft rejection requiring inpatient management (eg, intravenous immunosuppression)(62)(63) [ ]b) Acute graft heart failure indicated by ANY ONE of the following(64): [ ]i) Hemodynamic instability [ ]ii) Cardiac arrhythmias of immediate concern [ ]iii) Pulmonary edema that is very severe (eg, mechanical ventilation needed, imminent or likely, need for 100% oxygen to keep oxygen saturation above 90%) [ ]iv) Pulmonary edema that is persistent as indicated by ALL of the following: [ ]1) New need for oxygen therapy to keep oxygen saturation above 90% (or increased FiO2 need from baseline) [ ]2) Has not improved sufficiently with emergency department or observation care IV diuretics or other heart failure treatments[E] [ ]v) Altered mental status that is severe or persistent [ ]vi) Increased creatinine (new on laboratory test) with reduction of more than 50% in estimated glomerular filtration rate from baseline [ ]vii) Progressively (ongoing) rising creatinine (known from past laboratory test) with reduction of more than 25% in estimated glomerular filtration rate from baseline [ ]viii) Acute renal failure [ ]ix) Acute peripheral ischemia (eg, examination shows pulseless, cool, mottled, or cyanotic extremity) [ ]x) Pulmonary artery catheter monitoring needed [ ]xi) Other sign or symptom of heart failure requiring inpatient treatment (ie, too severe or not responsive to outpatient and observation care treatment) [ ]c) Infection requiring inpatient management (eg, Hemodynamic instability, need for intravenous antimicrobial treatment)(66)(67)(68)(69)(70) [ ]d) Cardiac allograft vasculopathy requiring inpatient management ( eg evidence of cardiac ischemia)(71) [ ]e) Other complication of transplanted heart (eg, stroke, severe pulmonary hypertension, severe valvular dysfunction) requiring inpatient management(72) The [facility] content created by [facility] has been revised. The portions of the content which have been revised are identified through the use of italic text or in bold, and [facility] has neither reviewed nor approved the modified material. All other unmodified content is copyright [facility]. Please see references footnoted in the original [facility] edition 2016 Admission Criteria Met?: Yes ADINA KING Jan 04, 2017 04:27
[2017-01-04 07:00] VITALS: BP 146/76
--- NOTE | 2017-01-04 07:23 | RAD ---
Portable chest, 01/03/2017: History: Chest pain Comparison is made to a study from 09/20/2016. The heart size and pulmonary vascularity are normal. No pulmonary infiltrates are seen. There is no evidence of pleural fluid. IMPRESSION: No acute cardiopulmonary abnormality is detected.
[2017-01-04] MEDS ORDERED: IPRATRPIUM/ALBUTEROL 0.5/2.5MG 3 ML NEBU. NEB SCH (08:00)
--- NOTE | 2017-01-04 08:47 | ACF ---
Admission Forms Criteria COPD Clinical Indications for Admission to Inpatient Care (Place 'X' for any and all applicable criteria): Admission is indicated for ANY ONE of the following (1)(2)(3): [X]I. Acute exacerbation by high-risk comorbidity (e.g., pneumonia, dysrhythmia, heart failure, pleural effusion, pneumothorax) or severe underlying COPD (e.g., steroid dependent) [ ]II. Inpatient admission required rather than observation care (see Chronic Obstructive Pulmonary Disease: Observation Care) because of ANY ONE of the following: [ ]a) New or pre-existing signs or symptoms of COPD (eg, dyspnea or Tachypnea at rest or with minimal activity) that persist despite outpatient and observation care treatment [ ]b) New-onset hypoxemia (room air SaO2 less than 90%, PO2 less than 60 mm Hg (8.0 kPa)) that persists despite outpatient and observation care treatment [ ]c) Worsening of pre-existing hypoxemia (eg, new or increased requirement for supplemental oxygen to maintain oxygenation at baseline level) that persists despite outpatient and observation care treatment, with oxygen treatment needs performable only in acute inpatient setting [ ]d) Hypercarbia (PCO2 greater than 40 mm Hg (5.3 kPa))-induced respiratory acidosis (pH less than 7.35) that persists despite outpatient and observation care treatment [ ]e) Supplemental oxygen or respiratory treatments for over 24 hours that are performable only in acute inpatient setting [ ]f) Chest tube placement with active evacuation (e.g., suction, drainage) (5) [ ]g) Other condition, treatment or monitoring requiring inpatient admission [ ]III. Planned invasive surgical or diagnostic procedures requiring acute- care hospitalization [ ]IV. Acute respiratory failure (e.g., uncompensated hypercarbia, severe hypoxemia) [ ]V. Severe comorbid condition (e.g., severe steroid myopathy, acute vertebral fracture) that has acutely worsened pulmonary function [ ]. Confusion state, lethargy, obtundation, stupor or coma Extended stay beyond goal length of stay may be needed for (31)(32): [ ]a ) Respiratory Failure. [ ]b) Severe or persisting hypoxemia or hypercarbia [ ]c) Severe or persistent dyspnea [ ]d) Comorbidities (e.g. chronic heart failure, atrial fibrillation with rapid response, pneumonia) [ ]e) Malnutrition The original [facility] content created by [facility] has been revised. The portions of the content which have been revised are identified through the use of italic text or in bold, and [facility] has neither reviewed nor approved the modified material. All other unmodified content is copyright [facility]. Please see references footnoted in the original [facility] edition 2016 Admission Criteria Met?: Yes PANCHITO MENDOZA Jan 04, 2017 08:47
--- NOTE | 2017-01-04 09:12 | PDOC1 ---
History and Physical Date of Admission Date of Admission DATE: 01/04/17 TIME: 09:08 Identification/Chief Complaint Chief Complaint chest pain Problems: Source Source: Chart review, Patient History of Present Illness History of Present Illness Ms. Sanabria, is a 56 year old female did not feel well yesterday, went home from work early. Tired, cough, no energy. Came to ER for acute left-sided chest pain radiating to her shoulder, w./ pressure-type sensation. some pain in left arm previously, chest pain is worse with cough, not reproducible, some pleurisy. She has darkish brown sputum production with coughing. pain 5./10 Past Medical History Cardiovascular: CHF, HTN, Other Pulmonary: COPD CENTRAL NERVOUS SYSTEM: Other GI: GERD Heme/Onc: No pertinent hx Hepatobiliary: No pertinent hx Psych: No pertinent hx Musculoskeletal: Osteoarthritis Rheumatologic: No pertinent hx Infectious disease: No pertinent hx Renal/: No pertinent hx Endocrine: No pertinent hx Past Surgical History Past Surgical History: Hysterectomy, Other Family History Family History: Coronary Artery Disease Social History Smoke: <1 pack per day ALCOHOL: none Drugs: None Current Problem List Problem List Problems Medical Problems: (1) Cardiac chest pain Status: Acute (2) COPD exacerbation Status: Acute (3) Nonspecific chest pain Status: Acute Problems: Current Medications Current Medications Current Medications Methylprednisolone Sodium Succinate (SOLU-Medrol 125MG VIAL) 125 mg 1X ONCE IV Last administered on 01/04/17 00:45; Start 01/04/17 at 00:45; Stop 01/04/17 at 00:46; Status DC Albuterol/ Ipratropium (Duoneb) 3 ml 1X ONCE NEB Last administered on 01:11; Start 01/04/17 at 00:45; Stop 01/04/17 at 00:46; Status DC Ondansetron HCl (Zofran) 4 mg 1X ONCE IV Last administered on 01/04/17 00:45 ; Start 01/04/17 at 00:45; Stop 01/04/17 at 00:46; Status DC Ondansetron HCl (Zofran) 4 mg 1X ONCE IV Last administered on 01/04/17 01:47 ; Start 01/04/17 at 01:45; Stop 01/04/17 at 01:51; Status DC Albuterol Sulfate (Ventolin Neb Soln) 2.5 mg 1X ONCE NEB Last administered on 01/04/17 01:52; Start 01/04/17 at 02:00; Stop 01/04/17 at 02:01; Status DC Ondansetron HCl (Zofran) 4 mg PRN Q8HRS PRN IV NAUSEA/VOMITING; Start 01/04/17 at 02:15; Stop 01/05/17 at 02:14 Acetaminophen (Tylenol) 650 mg PRN Q4HRS PRN PO FEVER Last administered on 01/04 02:39; Start 01/04/17 at 02:15; Stop 01/05/17 at 02:14 Albuterol/ Ipratropium (Duoneb) 3 ml RTQID NEB ; Start 01/04/17 at 08:00; Stop 01/05/17 at 07:59 Active Scripts Active Carvedilol 6.25 Mg Tablet 6.25 Mg PO BIDWMEALS SIG: ONE P.O. BID Atorvastatin Calcium 40 Mg Tablet 40 Mg PO QHS SIG: ONE P.O. AT BEDTIME Effient (Prasugrel Hcl) 10 Mg Tablet 10 Mg PO DAILYWBKFT SIG: ONE P.O. DAILY; MAY NOT STOP WITHOUT AUTHORIZATION FROM CARDIOLOGY Lisinopril 2.5 Mg Tablet 2.5 Mg PO QHS SIG: ONE P.O. AT BEDTIME Furosemide 40 Mg Tablet 40 Mg PO DAILY SIG: ONE DAILY Reported NICODERM CQ 21mg (Nicotine) 1 Each Patch.td24 1 Patch TP DAILY Nicorette (Nicotine Polacrilex) 2 Mg Gum 2 Mg BC PRN Q2HRS PRN Allergies Allergies: Coded Allergies: codeine (Verified Allergy, Severe, Anaphylaxis, 08/04/14) ketorolac (Verified Allergy, Severe, Anaphylaxis, 08/04/14) diphenhydramine (Verified Allergy, Intermediate, Hives, 06/19/16) ROS General: YES: Chills, Malaise, No: Night Sweats, Fatigue, Appetite, Other PSYCHOLOGICAL ROS: YES: Sleep disturbances, No: Anxiety, Behavioral Disorder, Concentration difficultie, Decreased libido , Depression, Disorientation, Hallucinations, Hostility, Irritablity, Memory difficulties, Mood Swings, Obsessive thoughts, Other Eyes: No Blurry vision, No Decreased vision, No Double vision, No Dry eyes, No Excessive tearing, No Eye Pain, No Itchy Eyes, No Loss of vision, No Photophobia , No Scotomata, No Uses contacts, No Uses glasses, No Other HEENT: No: Heacaches, Visual Changes, Hearing change, Nasal congestion, Nasal discharge, Oral lesions, Sinus pain, Sore Throat, Epistaxis, Sneezing, Snoring, Tinnitus, Vertigo, Vocal changes, Other ENDOCRINE: No: Breast Changes, Galactorrhea, Hair Pattern Changes, Hot Flashes , Malaise/lethargy, Mood Swings, Palpitations, Polydipsia/polyuria, Skin Changes , Temperature Intolerance, Unexpected Weight Changes, Other Respiratory: YES: Cough, Pleuritic Pain, Sputum Changes, No: Hemoptysis, Orthopnea, Shortness of breath, Stridor, Tachypnea, Wheezing , Other Cardiovascular: yes Chest Pain, No Palpitations, No Orthopnea, No Paroxysmal Noc. Dyspnea, No Edema, No Lt Headedness, No Other Gastrointestinal: No Nausea, No Vomiting, No Abdominal Pain, No Diarrhea, No Constipation, No Melena, No Hematochezia, No Other Genitourinary: No Dysuria, No Frequency, No Incontinence, No Hematuria, No Retention, No Discharge, No Urgency, No Pain, No Flank Pain, No Other, No , No , No , No , No , No , No Musculoskeletal: No Gait Disturbance, No Joint Pain, No Joint Stiffness, No Joint Swelling, No Muscle Pain, No Muscular Weakness, No Pain In:, No Swelling In:, No Other Neurological: No Behavorial Changes, No Bowel/Bladder ControlChng, No Confusion , No Dizziness, No Gait Disturbance, No Headaches, No Impaired Coord/balance, No Memory Loss, No Numbness/Tingling, No Seizures, No Speech Problems, No Tremors, No Visual Changes, No Weakness, No Other Skin: Yes Dry Skin, No Eczema, No Hair Changes, No Lumps, No Mole Changes, No Mottling, No Nail Changes, No Pruritus, No Rash, No Skin Lesion Changes, No Other, No Acne Physical Exam General: Alert, Oriented X3, Cooperative, mild distress HEENT: Atraumatic, PERRLA Lungs: Other (rales, min wheeze, moderately low volume for age and size) Abdomen: Normal bowel sounds, Soft (obese) Rectal Exam: deferred Extremities: No clubbing, No edema, Normal pulses Skin: No rashes, No significant lesion Neuro: Normal speech, Normal tone, Cranial nerves 3-12 NL Psych/Mental Status: Mental status NL, Mood NL Vitals Vitals Vital Signs Date Time Temp Pulse Resp B/P (MAP) Pulse Ox O2 Delivery O2 Flow Rate FiO2 01/04/17 07:00 97.7 103 18 146/76 (99) 97 Room Air 97.7 Labs Labs Laboratory Tests Test 01/04/17 00:10 01/04/17 08:04 White Blood Count 8.3 x10^3/uL (4.0-11.0) Red Blood Count 4.36 x10^6/uL (3.50-5.40) Hemoglobin 12.7 g/dL (12.0-15.5) Hematocrit 38.7 % (36.0-47.0) Mean Corpuscular Volume 89 fL (79-100) Mean Corpuscular Hemoglobin 29 pg (25-35) Mean Corpuscular Hemoglobin Concent 33 g/dL (31-37) Red Cell Distribution Width 13.6 % (11.5-14.5) Platelet Count 247 x10^3/uL (140-400) Neutrophils (%) (Auto) 46 % (31-73) Lymphocytes (%) (Auto) 41 % (24-48) Monocytes (%) (Auto) 6 % (0-9) Eosinophils (%) (Auto) 6 % (0-3) Basophils (%) (Auto) 1 % (0-3) Neutrophils # (Auto) 3.8 x10^3uL (1.8-7.7) Lymphocytes # (Auto) 3.4 x10^3/uL (1.0-4.8) Monocytes # (Auto) 0.5 x10^3/uL (0.0-1.1) Eosinophils # (Auto) 0.5 x10^3/uL (0.0-0.7) Basophils # (Auto) 0.1 x10^3/uL (0.0-0.2) Sodium Level 141 mmol/L (136-145) Potassium Level 3.7 mmol/L (3.5-5.1) Chloride Level 105 mmol/L (98-107) Carbon Dioxide Level 29 mmol/L (21-32) Anion Gap 7 (6-14) Blood Urea Nitrogen 12 mg/dL (7-20) Creatinine 1.0 mg/dL (0.6-1.0) Estimated GFR (Cockcroft-Gault) 57.6 BUN/Creatinine Ratio 12 (6-20) Glucose Level 167 mg/dL (70-99) Calcium Level 8.5 mg/dL (8.5-10.1) Total Bilirubin 0.2 mg/dL (0.2-1.0) Aspartate Amino Transf (AST/SGOT) 14 U/L (15-37) Alanine Aminotransferase (ALT/SGPT) 18 U/L (14-59) Alkaline Phosphatase 104 U/L (46-116) Troponin I Quantitative < 0.017 ng/mL (0.000-0.055) < 0.017 ng/mL (0.000-0.055) Total Protein 6.7 g/dL (6.4-8.2) Albumin 3.4 g/dL (3.4-5.0) Albumin/Globulin Ratio 1.0 (1.0-1.7) Laboratory Tests Test 01/04/17 00:10 01/04/17 08:04 White Blood Count 8.3 x10^3/uL (4.0-11.0) Red Blood Count 4.36 x10^6/uL (3.50-5.40) Hemoglobin 12.7 g/dL (12.0-15.5) Hematocrit 38.7 % (36.0-47.0) Mean Corpuscular Volume 89 fL (79-100) Mean Corpuscular Hemoglobin 29 pg (25-35) Mean Corpuscular Hemoglobin Concent 33 g/dL (31-37) Red Cell Distribution Width 13.6 % (11.5-14.5) Platelet Count 247 x10^3/uL (140-400) Neutrophils (%) (Auto) 46 % (31-73) Lymphocytes (%) (Auto) 41 % (24-48) Monocytes (%) (Auto) 6 % (0-9) Eosinophils (%) (Auto) 6 % (0-3) Basophils (%) (Auto) 1 % (0-3) Neutrophils # (Auto) 3.8 x10^3uL (1.8-7.7) Lymphocytes # (Auto) 3.4 x10^3/uL (1.0-4.8) Monocytes # (Auto) 0.5 x10^3/uL (0.0-1.1) Eosinophils # (Auto) 0.5 x10^3/uL (0.0-0.7) Basophils # (Auto) 0.1 x10^3/uL (0.0-0.2) Sodium Level 141 mmol/L (136-145) Potassium Level 3.7 mmol/L (3.5-5.1) Chloride Level 105 mmol/L (98-107) Carbon Dioxide Level 29 mmol/L (21-32) Anion Gap 7 (6-14) Blood Urea Nitrogen 12 mg/dL (7-20) Creatinine 1.0 mg/dL (0.6-1.0) Estimated GFR (Cockcroft-Gault) 57.6 BUN/Creatinine Ratio 12 (6-20) Glucose Level 167 mg/dL (70-99) Calcium Level 8.5 mg/dL (8.5-10.1) Total Bilirubin 0.2 mg/dL (0.2-1.0) Aspartate Amino Transf (AST/SGOT) 14 U/L (15-37) Alanine Aminotransferase (ALT/SGPT) 18 U/L (14-59) Alkaline Phosphatase 104 U/L (46-116) Troponin I Quantitative < 0.017 ng/mL (0.000-0.055) < 0.017 ng/mL (0.000-0.055) Total Protein 6.7 g/dL (6.4-8.2) Albumin 3.4 g/dL (3.4-5.0) Albumin/Globulin Ratio 1.0 (1.0-1.7) VTE Prophylaxis Ordered VTE Prophylaxis Devices: No VTE Pharmacological Prophylaxi: Yes Assessment/Plan Assessment/Plan chest pain, ER started troponin lab protocol to r/o ACS, prior history of CAD, CV consulted to follow check lipids in AM cough, dyspnea, pain w/ pleurisy, productive cough COPD, acute bronchitis, rocephin and doxy, nebs and toilet tachycardia only, not sepsis htn tobaccoism, cessation discussed admit MARIA GUADALUPE RIGGS MD Jan 04, 2017 09:12
[2017-01-04] MEDS ORDERED: BUDESONIDE 0.5 MG/2 ML NEBU. NEB ONE (09:15)
[2017-01-04] MEDS ORDERED: NICOTINE POLACRILEX 2MG GUM PACKAGE of 12. BC PRN (09:15)
[2017-01-04] MEDS ORDERED: CARVEDILOL 6.25 MG TABLET. PO SCH (09:30)
[2017-01-04] MEDS: PRASUGREL 10 MG TABLET. PO SCH (09:32)
[2017-01-04] MEDS: NICOTINE 21MG PATCH. TD SCH (09:33)
--- NOTE | 2017-01-04 10:20 | PDOC2 ---
TAWNY SHEN LIBRARY HISTORIAN 01/04/17 1020: CARDIAC CONSULT DATE OF CONSULT Date of Consult DATE: 01/04/17 TIME: 10:11 REASON FOR CONSULT Reason for Consult: Chest pain REFERRING PHYSICIAN Referring Physician: Courtney SOURCE Source: Chart review, Patient HISTORY OF PRESENT ILLNESS HISTORY OF PRESENT ILLNESS This is a pleasant 56 yo female admitted for complains of chest pain. Reports that this chest pain is pressure like and radiates to left shoulder. This is worse when laying down but better when upright. She has been feeling fatigue in the last 2 weeks. At times feels like her chest is pounding. Sometimes she does get SOA but more with exertion in the last few days. Also with some chills at times with diaphoresis, but no documented fever. She has been coughing out brown sputum and having coughing. She is trying to quit smoking but she continues to smoke 1 PPD. She has had PCI/HAYES in 05/2016 and failed to follow up in our office. She has been compliant with her ASA/effient and lisinopril/lipitor/coreg. The only med she has been skipping is her lasix since this affects her work productivity. Currently feels a little wheezy and more comfortable. PAST MEDICAL HISTORY Past Medical History Cardiovascular: CHF, HTN, CAD, cardiomyopathy Pulmonary: COPD, pulmonary nodule CENTRAL NERVOUS SYSTEM: No pertinent history GI: GERD Heme/Onc: No pertinent hx Hepatobiliary: No pertinent hx Psych: No pertinent hx Musculoskeletal: Osteoarthritis (knees) Rheumatologic: No pertinent hx Infectious disease: No pertinent hx ENT: No pertinent hx Renal/: No pertinent hx Endocrine: No pertinent hx Dermatology: No pertinent hx PAST SURGICAL HISTORY Past Surgical History Hysterectomy (complete), Other (left knee surgery X 8), PCI/HAYES to LAD 05/2016 FAMILY HISTORY Family History Coronary Artery Disease (both parents; sister of CAD @ age 55) SOCIAL HISTORY Social History Smoke: 1 pack per day (X 40 years) ALCOHOL: none Drugs: None CURRENT MEDICATIONS CURRENT MEDICATIONS Current Medications Medications (Trade) Dose Ordered Sig/Mary Route PRN Reason Start Time Stop Time Status Last Admin Dose Admin Methylprednisolone Sodium Succinate (SOLU-Medrol 125MG VIAL) 125 mg 1X ONCE IV 01/04/17 00:45 01/04/17 00:46 DC 01/04/17 00:45 Albuterol/ Ipratropium (Duoneb) 3 ml 1X ONCE NEB 01/04/17 00:45 01/04/17 00:46 DC 01/04/17 01:11 Ondansetron HCl (Zofran) 4 mg 1X ONCE IV 01/04/17 00:45 01/04/17 00:46 DC 01/04/17 00:45 Ondansetron HCl (Zofran) 4 mg 1X ONCE IV 01/04/17 01:45 01/04/17 01:51 DC 01/04/17 01:47 Albuterol Sulfate (Ventolin Neb Soln) 2.5 mg 1X ONCE NEB 01/04/17 02:00 01/04/17 02:01 DC 01/04/17 01:52 Acetaminophen (Tylenol) 650 mg PRN Q4HRS PRN PO FEVER 01/04/17 02:15 01/05/17 02:14 01/04/17 02:39 Carvedilol (Coreg) 6.25 mg BIDWMEALS PO 01/04/17 09:30 01/04/17 09:33 Nicotine (Nicoderm Cq 21mg) 1 patch DAILY TD 01/04/17 10:00 01/04/17 09:33 Prasugrel (Effient) 10 mg DAILYWBKFT PO 01/04/17 09:30 01/04/17 09:32 ALLERGIES ALLERGIES: Coded Allergies: codeine (Verified Allergy, Severe, Anaphylaxis, 08/04/14) ketorolac (Verified Allergy, Severe, Anaphylaxis, 08/04/14) diphenhydramine (Verified Allergy, Intermediate, Hives, 06/19/16) ROS Review of System 14 point ROS evaluated with pertinent positives noted per HPI PHYSICAL EXAM General: Alert, Oriented X3, Cooperative, No acute distress HEENT: Atraumatic, Mucous membr. moist/pink Lungs: Other (bibasilar wheeze) Heart: Regular rate (sinus tach), Normal S1, Normal S2 Abdomen: Soft, No tenderness Extremities: No cyanosis, No edema Skin: No breakdown, No significant lesion Neuro: Normal speech, Sensation intact Psych/Mental Status: Mental status NL, Mood NL MUSCULOSKELETAL: Osteoarthritic changes both hands VITALS VITALS Vital Signs Date Time Temp Pulse Resp B/P (MAP) Pulse Ox O2 Delivery O2 Flow Rate FiO2 01/04/17 09:33 103 146/76 01/04/17 07:00 97.7 18 97 Room Air 97.7 LABS Lab: Laboratory Tests Test 01/04/17 00:10 01/04/17 08:04 White Blood Count 8.3 x10^3/uL (4.0-11.0) Red Blood Count 4.36 x10^6/uL (3.50-5.40) Hemoglobin 12.7 g/dL (12.0-15.5) Hematocrit 38.7 % (36.0-47.0) Mean Corpuscular Volume 89 fL (79-100) Mean Corpuscular Hemoglobin 29 pg (25-35) Mean Corpuscular Hemoglobin Concent 33 g/dL (31-37) Red Cell Distribution Width 13.6 % (11.5-14.5) Platelet Count 247 x10^3/uL (140-400) Neutrophils (%) (Auto) 46 % (31-73) Lymphocytes (%) (Auto) 41 % (24-48) Monocytes (%) (Auto) 6 % (0-9) Eosinophils (%) (Auto) 6 % (0-3) Basophils (%) (Auto) 1 % (0-3) Neutrophils # (Auto) 3.8 x10^3uL (1.8-7.7) Lymphocytes # (Auto) 3.4 x10^3/uL (1.0-4.8) Monocytes # (Auto) 0.5 x10^3/uL (0.0-1.1) Eosinophils # (Auto) 0.5 x10^3/uL (0.0-0.7) Basophils # (Auto) 0.1 x10^3/uL (0.0-0.2) Sodium Level 141 mmol/L (136-145) Potassium Level 3.7 mmol/L (3.5-5.1) Chloride Level 105 mmol/L (98-107) Carbon Dioxide Level 29 mmol/L (21-32) Anion Gap 7 (6-14) Blood Urea Nitrogen 12 mg/dL (7-20) Creatinine 1.0 mg/dL (0.6-1.0) Estimated GFR (Cockcroft-Gault) 57.6 BUN/Creatinine Ratio 12 (6-20) Glucose Level 167 mg/dL (70-99) Calcium Level 8.5 mg/dL (8.5-10.1) Total Bilirubin 0.2 mg/dL (0.2-1.0) Aspartate Amino Transf (AST/SGOT) 14 U/L (15-37) Alanine Aminotransferase (ALT/SGPT) 18 U/L (14-59) Alkaline Phosphatase 104 U/L (46-116) Troponin I Quantitative < 0.017 ng/mL (0.000-0.055) < 0.017 ng/mL (0.000-0.055) Total Protein 6.7 g/dL (6.4-8.2) Albumin 3.4 g/dL (3.4-5.0) Albumin/Globulin Ratio 1.0 (1.0-1.7) ECHOCARDIOGRAM ECHOCARDIOGRAM <Conclusion> The left ventricle is normal size. The left ventricular systolic function is normal and the ejection fraction is within normal range. The Ejection Fraction is 50-55%. There is mild concentric left ventricular hypertrophy. There is no significant aortic valvular stenosis. Doppler and Color Flow revealed no significant aortic regurgitation. Doppler and Color Flow revealed trace mitral valve regurgitation. Doppler and Color Flow revealed no tricuspid valve regurgitation noted. There is no evidence of significant pericardial effusion. DATE: 09/20/16 1639 HEART CATH HEART CATH Conclusion 1. Single-vessel coronary artery disease involving left anterior descending artery, confirmed to be physiologically significant based on IFR and FFR measurements as stated above. 2. Successful PCI/drug eluting stents placement to the left anterior descending artery. 3. Apical wall hypokinesis with ejection fraction estimated at 40%. Recommendations 1. Aspirin 325 mg daily 2. Effient 10 mg daily for preferably one year 3. Cardiovascular risk factor modification. DATE: 06/20/16 1510 ASSESSMENT/PLAN ASSESSMENT/PLAN 1. Atypical Chest pain: Doubt ACS. Likely GI/bronchopasm. troponin series normal without acute changes to EKG. Worse when supine and better when upright 2. AECOPD: continued tobaccoism. albuterol nebulizer makes her nauseated. Per PCP 3. HTN: slightly on the labile side with sinus tach 4. HLP 5. CAD: PCI/HAYES to LAD 05/2016, compliant with DAPT. Recommendations 1. Continue with ASA/effient and secondary prevention measures 2. Limited TTE and will note pericardium and EF. 3. Mg and TSH, lipids 4. With her wheeze will change coreg to metoprolol at higher dose 5. Encouraged compliance with appointments and smoking cessation 6. Will start on PPI Problems: EDITA DAVIS MD 01/05/17 0806: CARDIAC CONSULT ALLERGIES ALLERGIES: Coded Allergies: codeine (Verified Allergy, Severe, Anaphylaxis, 08/04/14) ketorolac (Verified Allergy, Severe, Anaphylaxis, 08/04/14) diphenhydramine (Verified Allergy, Intermediate, Hives, 06/19/16) ASSESSMENT/PLAN ASSESSMENT/PLAN Patient seen and examined 01/04/17. 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 Patient with history of CAD s/p PCI/stent to LAD has been admitted with chest pain with atypical features most probably GI etiology. Myocardial infarction ruled out. 2-D echo showed normal LV function without any regional wall motion abnormalities. Continue treatment of acute COPD exacerbation per primary team. Continue current medications including dual antiplatelet therapy. Thank you for your consultation. Problems: TAWNY SHEN APRN Jan 04, 2017 10:20 EDITA DAVIS MD Jan 05, 2017 08:06
--- NOTE | 2017-01-04 10:28 | EKG ---
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
[2017-01-04] MEDS ORDERED: DOXYCYCLINE HYCLATE 100 MG TABLET PO ONE (10:30)
[2017-01-04 10:57] VITALS: BP 140/75
[2017-01-04] MEDS: IPRATRPIUM/ALBUTEROL 0.5/2.5MG 3 ML NEBU. NEB SCH ×3 (11:09→19:55)
[2017-01-04] MEDS: ONDANSETRON PF 4 MG/2 ML VIAL. IV PRN ×2 (11:19→20:08)
[2017-01-04] MEDS: PANTOPRAZOLE 40 MG TABLET.DR. PO SCH (12:02)
--- NOTE | 2017-01-04 13:16 | CARD ---
APPROVED REPORT EXAM: Two-dimensional and M-mode echocardiogram with Doppler and color Doppler. Other Information Quality : GoodHR: 96bpm Rhythm : NSRTechnically limited study due to body habitus and smoking. INDICATION Cardiac Disease: CAD Chest Pain RISK FACTORS Obesity 2D DIMENSIONS RVDd2.8 (2.9-3.5cm)Left Atrium(2D)3.0 (1.6-4.0cm) IVSd1.1 (0.7-1.1cm)Aortic Root(2D)2.7 (2.0-3.7cm) LVDd5.1 (3.9-5.9cm)LVOT Diameter2.3 (1.8-2.4cm) PWd1.1 (0.7-1.1cm)LVDs3.7 (2.5-4.0cm) FS (%) 28.3 %SV67.2 ml LVEF(%)54.4 (>50%) LEFT VENTRICLE The left ventricle is normal size. There is borderline to mild concentric left ventricular hypertroph y. The left ventricular systolic function is normal and the ejection fraction is within normal range. The Ejection Fraction is 55-60%. There is normal LV segmental wall motion. Limited echo, left ventri cular compliance was not assessed. RIGHT VENTRICLE The right ventricle is normal size. There is normal right ventricular wall thickness. The right ventr icular systolic function is normal. ATRIA The left atrium size is normal. The right atrium size is normal. AORTIC VALVE The aortic valve is mildly sclerotic. The aortic valve is trileaflet. There is no significant aortic valvular stenosis. MITRAL VALVE Mitral annular calcification is mild. The mitral valve leaflets are thickened. There is no evidence o f mitral valve prolapse. There is no mitral valve stenosis. PULMONIC VALVE The pulmonic valve is not well visualized but appears to open well. There is no pulmonic valvular ricky nosis. GREAT VESSELS The aortic root is normal in size. The ascending aorta is mildly dilated. The pulmonary is not well v isualized. The IVC is normal in size and collapses >50% with inspiration. PERICARDIAL EFFUSION There is no evidence of significant pericardial effusion. Critical Notification Critical Value: No <Conclusion> The left ventricular systolic function is normal and the ejection fraction is within normal range. Th e Ejection Fraction is 55-60%. There is normal LV segmental wall motion.
[2017-01-04 14:43] VITALS: BP 121/67
[2017-01-04 19:00] VITALS: BP 113/70
[2017-01-04] MEDS: BUDESONIDE 0.5 MG/2 ML NEBU. NEB SCH (19:57)
[2017-01-04] MEDS: LISINOPRIL 2.5 MG TABLET PO SCH (21:00)
[2017-01-04] MEDS: DOXYCYCLINE HYCLATE 100 MG TABLET PO SCH (21:00)
[2017-01-04] MEDS: ATORVASTATIN CALCIUM 40 MG TABLET. PO SCH (21:00)
[2017-01-04] MEDS: METOPROLOL TART IMMED RELEASE 50 MG TABLET. PO SCH (21:04)
[2017-01-04 23:00] VITALS: BP 129/62
[2017-01-05 03:00] VITALS: BP 110/56
[2017-01-05 05:19] LABS: BASO % 0 % (0-3); EOS % 0 % (0-3); HEMATOCRIT 35.8 % (36.0-47.0); HEMOGLOBIN 11.6 g/dL (12.0-15.5); LYMPH # 3.2 x10^3/uL (1.0-4.8); LYMPH % 17 % (24-48); MEAN CORPUSCULAR HEMOGLOBIN 29 pg (25-35); MEAN CORPUSCULAR HGB CONC 32 g/dL (31-37); MEAN CORPUSCULAR VOLUME 89 fL (79-100); MONO % 5 % (0-9); NEUT % 77 % (31-73); PLATELET COUNT 262 x10^3/uL (140-400); RED BLOOD COUNT 4.02 x10^6/uL (3.50-5.40); RED CELL DISTRIBUTION WIDTH 13.7 % (11.5-14.5); WHITE BLOOD COUNT 18.7 x10^3/uL (4.0-11.0)
[2017-01-05] MEDS: IPRATRPIUM/ALBUTEROL 0.5/2.5MG 3 ML NEBU. NEB SCH ×4 (06:00→22:00)
[2017-01-05 06:16] LABS: CALCIUM 8.6 mg/dL (8.5-10.1); CREATININE 0.8 mg/dL (0.6-1.0); GFR 74.5; POTASSIUM 4.3 mmol/L (3.5-5.1); TOTAL BILIRUBIN 0.1 mg/dL (0.2-1.0)
[2017-01-05 06:18] LABS: CHOLESTEROL/HDL RATIO 3.6
[2017-01-05 07:00] VITALS: BP 106/62
[2017-01-05] MEDS: BUDESONIDE 0.5 MG/2 ML NEBU. NEB SCH ×2 (08:00→20:00)
[2017-01-05] MEDS: PANTOPRAZOLE 40 MG TABLET.DR. PO SCH (08:40)
[2017-01-05] MEDS: ASPIRIN ENTERIC COATED 81 MG TABLET.DR. PO SCH (08:40)
[2017-01-05] MEDS: DOXYCYCLINE HYCLATE 100 MG TABLET PO SCH ×2 (08:41→19:54)
[2017-01-05] MEDS: METOPROLOL TART IMMED RELEASE 50 MG TABLET. PO SCH ×2 (08:41→19:56)
[2017-01-05] MEDS: PRASUGREL 10 MG TABLET. PO SCH (08:42)
[2017-01-05] MEDS: NICOTINE 21MG PATCH. TD SCH (08:43)
[2017-01-05] MEDS: FUROSEMIDE 40 MG TABLET. PO SCH (08:45)
[2017-01-05 11:00] VITALS: BP 123/86
[2017-01-05] MEDS ORDERED: predniSONE 20 MG TABLET PO ONE (11:30)
--- NOTE | 2017-01-05 11:36 | PDOC ---
PROGRESS NOTES Chief Complaint Chief Complaint chest pain, prior history of CAD, stable COPD, acute bronchitis, htn tobaccoism, cessation discussed History of Present Illness History of Present Illness add IV steroids today, stress dose w/ wheeze PO prednisone tomorrow cont rocephin and doxy, nebs and toilet tachycardia Vitals Vitals Vital Signs Date Time Temp Pulse Resp B/P (MAP) Pulse Ox O2 Delivery O2 Flow Rate FiO2 01/05/17 08:41 68 106/62 01/05/17 08:00 Room Air 01/05/17 07:00 97.8 22 98 97.8 Physical Exam General: Alert, Oriented X3, Cooperative, No acute distress Heart: Regular rate (sinus tach), Normal S1, Normal S2, No murmurs Lungs: Wheezing, Crackles, Other Abdomen: Soft, No tenderness Extremities: No cyanosis, No edema Skin: No breakdown, No significant lesion Labs LABS Laboratory Tests Test 01/04/17 13:30 01/05/17 04:45 Troponin I Quantitative < 0.017 ng/mL (0.000-0.055) White Blood Count 18.7 x10^3/uL (4.0-11.0) Red Blood Count 4.02 x10^6/uL (3.50-5.40) Hemoglobin 11.6 g/dL (12.0-15.5) Hematocrit 35.8 % (36.0-47.0) Mean Corpuscular Volume 89 fL (79-100) Mean Corpuscular Hemoglobin 29 pg (25-35) Mean Corpuscular Hemoglobin Concent 32 g/dL (31-37) Red Cell Distribution Width 13.7 % (11.5-14.5) Platelet Count 262 x10^3/uL (140-400) Neutrophils (%) (Auto) 77 % (31-73) Lymphocytes (%) (Auto) 17 % (24-48) Monocytes (%) (Auto) 5 % (0-9) Eosinophils (%) (Auto) 0 % (0-3) Basophils (%) (Auto) 0 % (0-3) Neutrophils # (Auto) 14.4 x10^3uL (1.8-7.7) Lymphocytes # (Auto) 3.2 x10^3/uL (1.0-4.8) Monocytes # (Auto) 1.0 x10^3/uL (0.0-1.1) Eosinophils # (Auto) 0.0 x10^3/uL (0.0-0.7) Basophils # (Auto) 0.0 x10^3/uL (0.0-0.2) Sodium Level 141 mmol/L (136-145) Potassium Level 4.3 mmol/L (3.5-5.1) Chloride Level 106 mmol/L (98-107) Carbon Dioxide Level 28 mmol/L (21-32) Anion Gap 7 (6-14) Blood Urea Nitrogen 13 mg/dL (7-20) Creatinine 0.8 mg/dL (0.6-1.0) Estimated GFR (Cockcroft-Gault) 74.5 BUN/Creatinine Ratio 16 (6-20) Glucose Level 135 mg/dL (70-99) Calcium Level 8.6 mg/dL (8.5-10.1) Total Bilirubin 0.1 mg/dL (0.2-1.0) Aspartate Amino Transf (AST/SGOT) 9 U/L (15-37) Alanine Aminotransferase (ALT/SGPT) 15 U/L (14-59) Alkaline Phosphatase 91 U/L (46-116) Total Protein 6.0 g/dL (6.4-8.2) Albumin 3.0 g/dL (3.4-5.0) Albumin/Globulin Ratio 1.0 (1.0-1.7) Triglycerides Level 70 mg/dL (0-150) Cholesterol Level 159 mg/dL (0-200) LDL Cholesterol, Calculated 101 mg/dL (0-100) VLDL Cholesterol, Calculated 14 mg/dL (0-40) Non-HDL Cholesterol Calculated 115 mg/dL (0-129) HDL Cholesterol 44 mg/dL (40-60) Cholesterol/HDL Ratio 3.6 Review of Systems Review of Systems no.diarrhea, + nausea, has not vomited, poor PO intake does not feel well, + cough, dyspnea wheeze, myalgia Assessment and Plan Assessmemt and Plan Problems Medical Problems: (1) Cardiac chest pain Status: Acute (2) COPD exacerbation Status: Acute (3) Nonspecific chest pain Status: Acute Problems: Comment Review of Relevant I have reviewed the following items harjeet (where applicable) has been applied. Labs Laboratory Tests Test 01/04/17 00:10 01/04/17 08:04 01/04/17 13:30 01/05/17 04:45 White Blood Count 8.3 x10^3/uL (4.0-11.0) 18.7 x10^3/uL (4.0-11.0) Red Blood Count 4.36 x10^6/uL (3.50-5.40) 4.02 x10^6/uL (3.50-5.40) Hemoglobin 12.7 g/dL (12.0-15.5) 11.6 g/dL (12.0-15.5) Hematocrit 38.7 % (36.0-47.0) 35.8 % (36.0-47.0) Mean Corpuscular Volume 89 fL (79-100) 89 fL (79-100) Mean Corpuscular Hemoglobin 29 pg (25-35) 29 pg (25-35) Mean Corpuscular Hemoglobin Concent 33 g/dL (31-37) 32 g/dL (31-37) Red Cell Distribution Width 13.6 % (11.5-14.5) 13.7 % (11.5-14.5) Platelet Count 247 x10^3/uL (140-400) 262 x10^3/uL (140-400) Neutrophils (%) (Auto) 46 % (31-73) 77 % (31-73) Lymphocytes (%) (Auto) 41 % (24-48) 17 % (24-48) Monocytes (%) (Auto) 6 % (0-9) 5 % (0-9) Eosinophils (%) (Auto) 6 % (0-3) 0 % (0-3) Basophils (%) (Auto) 1 % (0-3) 0 % (0-3) Neutrophils # (Auto) 3.8 x10^3uL (1.8-7.7) 14.4 x10^3uL (1.8-7.7) Lymphocytes # (Auto) 3.4 x10^3/uL (1.0-4.8) 3.2 x10^3/uL (1.0-4.8) Monocytes # (Auto) 0.5 x10^3/uL (0.0-1.1) 1.0 x10^3/uL (0.0-1.1) Eosinophils # (Auto) 0.5 x10^3/uL (0.0-0.7) 0.0 x10^3/uL (0.0-0.7) Basophils # (Auto) 0.1 x10^3/uL (0.0-0.2) 0.0 x10^3/uL (0.0-0.2) Sodium Level 141 mmol/L (136-145) 141 mmol/L (136-145) Potassium Level 3.7 mmol/L (3.5-5.1) 4.3 mmol/L (3.5-5.1) Chloride Level 105 mmol/L (98-107) 106 mmol/L (98-107) Carbon Dioxide Level 29 mmol/L (21-32) 28 mmol/L (21-32) Anion Gap 7 (6-14) 7 (6-14) Blood Urea Nitrogen 12 mg/dL (7-20) 13 mg/dL (7-20) Creatinine 1.0 mg/dL (0.6-1.0) 0.8 mg/dL (0.6-1.0) Estimated GFR (Cockcroft-Gault) 57.6 74.5 BUN/Creatinine Ratio 12 (6-20) 16 (6-20) Glucose Level 167 mg/dL (70-99) 135 mg/dL (70-99) Calcium Level 8.5 mg/dL (8.5-10.1) 8.6 mg/dL (8.5-10.1) Total Bilirubin 0.2 mg/dL (0.2-1.0) 0.1 mg/dL (0.2-1.0) Aspartate Amino Transf (AST/SGOT) 14 U/L (15-37) 9 U/L (15-37) Alanine Aminotransferase (ALT/SGPT) 18 U/L (14-59) 15 U/L (14-59) Alkaline Phosphatase 104 U/L (46-116) 91 U/L (46-116) Troponin I Quantitative < 0.017 ng/mL (0.000-0.055) < 0.017 ng/mL (0.000-0.055) < 0.017 ng/mL (0.000-0.055) Total Protein 6.7 g/dL (6.4-8.2) 6.0 g/dL (6.4-8.2) Albumin 3.4 g/dL (3.4-5.0) 3.0 g/dL (3.4-5.0) Albumin/Globulin Ratio 1.0 (1.0-1.7) 1.0 (1.0-1.7) Thyroid Stimulating Hormone (TSH) 1.108 uIU/mL (0.358-3.74) Triglycerides Level 70 mg/dL (0-150) Cholesterol Level 159 mg/dL (0-200) LDL Cholesterol, Calculated 101 mg/dL (0-100) VLDL Cholesterol, Calculated 14 mg/dL (0-40) Non-HDL Cholesterol Calculated 115 mg/dL (0-129) HDL Cholesterol 44 mg/dL (40-60) Cholesterol/HDL Ratio 3.6 Laboratory Tests Test 01/04/17 13:30 01/05/17 04:45 Troponin I Quantitative < 0.017 ng/mL (0.000-0.055) White Blood Count 18.7 x10^3/uL (4.0-11.0) Red Blood Count 4.02 x10^6/uL (3.50-5.40) Hemoglobin 11.6 g/dL (12.0-15.5) Hematocrit 35.8 % (36.0-47.0) Mean Corpuscular Volume 89 fL (79-100) Mean Corpuscular Hemoglobin 29 pg (25-35) Mean Corpuscular Hemoglobin Concent 32 g/dL (31-37) Red Cell Distribution Width 13.7 % (11.5-14.5) Platelet Count 262 x10^3/uL (140-400) Neutrophils (%) (Auto) 77 % (31-73) Lymphocytes (%) (Auto) 17 % (24-48) Monocytes (%) (Auto) 5 % (0-9) Eosinophils (%) (Auto) 0 % (0-3) Basophils (%) (Auto) 0 % (0-3) Neutrophils # (Auto) 14.4 x10^3uL (1.8-7.7) Lymphocytes # (Auto) 3.2 x10^3/uL (1.0-4.8) Monocytes # (Auto) 1.0 x10^3/uL (0.0-1.1) Eosinophils # (Auto) 0.0 x10^3/uL (0.0-0.7) Basophils # (Auto) 0.0 x10^3/uL (0.0-0.2) Sodium Level 141 mmol/L (136-145) Potassium Level 4.3 mmol/L (3.5-5.1) Chloride Level 106 mmol/L (98-107) Carbon Dioxide Level 28 mmol/L (21-32) Anion Gap 7 (6-14) Blood Urea Nitrogen 13 mg/dL (7-20) Creatinine 0.8 mg/dL (0.6-1.0) Estimated GFR (Cockcroft-Gault) 74.5 BUN/Creatinine Ratio 16 (6-20) Glucose Level 135 mg/dL (70-99) Calcium Level 8.6 mg/dL (8.5-10.1) Total Bilirubin 0.1 mg/dL (0.2-1.0) Aspartate Amino Transf (AST/SGOT) 9 U/L (15-37) Alanine Aminotransferase (ALT/SGPT) 15 U/L (14-59) Alkaline Phosphatase 91 U/L (46-116) Total Protein 6.0 g/dL (6.4-8.2) Albumin 3.0 g/dL (3.4-5.0) Albumin/Globulin Ratio 1.0 (1.0-1.7) Triglycerides Level 70 mg/dL (0-150) Cholesterol Level 159 mg/dL (0-200) LDL Cholesterol, Calculated 101 mg/dL (0-100) VLDL Cholesterol, Calculated 14 mg/dL (0-40) Non-HDL Cholesterol Calculated 115 mg/dL (0-129) HDL Cholesterol 44 mg/dL (40-60) Cholesterol/HDL Ratio 3.6 Medications Current Medications Methylprednisolone Sodium Succinate (SOLU-Medrol 125MG VIAL) 125 mg 1X ONCE IV Last administered on 01/04/17 00:45; Start 01/04/17 at 00:45; Stop 01/04/17 at 00:46; Status DC Albuterol/ Ipratropium (Duoneb) 3 ml 1X ONCE NEB Last administered on 01:11; Start 01/04/17 at 00:45; Stop 01/04/17 at 00:46; Status DC Ondansetron HCl (Zofran) 4 mg 1X ONCE IV Last administered on 01/04/17 00:45 ; Start 01/04/17 at 00:45; Stop 01/04/17 at 00:46; Status DC Ondansetron HCl (Zofran) 4 mg 1X ONCE IV Last administered on 01/04/17 01:47 ; Start 01/04/17 at 01:45; Stop 01/04/17 at 01:51; Status DC Albuterol Sulfate (Ventolin Neb Soln) 2.5 mg 1X ONCE NEB Last administered on 01/04/17 01:52; Start 01/04/17 at 02:00; Stop 01/04/17 at 02:01; Status DC Ondansetron HCl (Zofran) 4 mg PRN Q8HRS PRN IV NAUSEA/VOMITING Last administered on 01/04/17 20:08; Start 01/04/17 at 02:15; Stop 01/05/17 at 02:14 ; Status DC Acetaminophen (Tylenol) 650 mg PRN Q4HRS PRN PO FEVER Last administered on 01/04 19:47; Start 01/04/17 at 02:15; Stop 01/05/17 at 02:14; Status DC Albuterol/ Ipratropium (Duoneb) 3 ml RTQID NEB ; Start 01/04/17 at 08:00; Stop 01/04/17 at 09:10; Status DC Albuterol/ Ipratropium (Duoneb) 3 ml Q4HRS W/A NEB Last administered on 19:55; Start 01/04/17 at 10:00; Stop 01/05/17 at 09:59; Status DC Budesonide (Pulmicort) 0.5 mg RTBID NEB Last administered on 01/04/17 19:57; Start 01/04/17 at 20:00 Budesonide (Pulmicort) 0.5 mg 1X ONCE NEB Last administered on 01/04/17 11:08 ; Start 01/04/17 at 09:15; Stop 01/04/17 at 09:16; Status DC Atorvastatin Calcium (Lipitor) 40 mg QHS PO Last administered on 01/04/17 21: 00; Start 01/04/17 at 21:00 Carvedilol (Coreg) 6.25 mg BIDWMEALS PO Last administered on 01/04/17 09:33; Start 01/04/17 at 09:30; Stop 01/04/17 at 10:49; Status DC Furosemide (Lasix) 40 mg DAILY PO ; Start 01/05/17 at 09:00 Lisinopril (Prinivil) 2.5 mg QHS PO Last administered on 01/04/17 21:00; Start 01/04/17 at 21:00 Nicotine (Nicoderm Cq 21mg) 1 patch DAILY TD Last administered on 01/05/17 08: 43; Start 01/04/17 at 10:00 Nicotine Polacrilex (Nicorette Gum) 1 each PRN Q2HRS PRN BC SMOKING CESSATION; Start 01/04/17 at 09:15 Prasugrel (Effient) 10 mg DAILYWBKFT PO Last administered on 01/05/17 08:42; Start 01/04/17 at 09:30 Ceftriaxone Sodium 1 gm/ Sodium Chloride 50 ml @ 100 mls/hr Q24H IV Last administered on 01/04/17 12:02; Start 01/04/17 at 11:00 Doxycycline Hyclate (Vibra-Tab) 100 mg 1X ONCE PO Last administered on 12:02; Start 01/04/17 at 10:30; Stop 01/04/17 at 10:31; Status DC Doxycycline Hyclate (Vibra-Tab) 100 mg BID PO Last administered on 01/05/17 08 :41; Start 01/04/17 at 21:00 Metoprolol Tartrate (Lopressor) 50 mg BID PO Last administered on 01/05/17 08: 41; Start 01/04/17 at 21:00 Aspirin (Ecotrin) 81 mg DAILYWBKFT PO Last administered on 01/05/17 08:40; Start 01/05/17 at 08:00 Pantoprazole Sodium (Protonix) 40 mg DAILYAC PO Last administered on 01/05/17 08:40; Start 01/04/17 at 11:00 Active Scripts Active Atorvastatin Calcium 40 Mg Tablet 40 Mg PO QHS SIG: ONE P.O. AT BEDTIME Effient (Prasugrel Hcl) 10 Mg Tablet 10 Mg PO DAILYWBKFT SIG: ONE P.O. DAILY; MAY NOT STOP WITHOUT AUTHORIZATION FROM CARDIOLOGY Lisinopril 2.5 Mg Tablet 2.5 Mg PO QHS SIG: ONE P.O. AT BEDTIME Furosemide 40 Mg Tablet 40 Mg PO DAILY SIG: ONE DAILY Reported NICODERM CQ 21mg (Nicotine) 1 Each Patch.td24 1 Patch TP DAILY Nicorette (Nicotine Polacrilex) 2 Mg Gum 2 Mg BC PRN Q2HRS PRN Vitals/I & O Vital Sign - Last 24 Hours 01/04/17 01/04/17 01/04/17 01/04/17 14:43 15:23 19:00 20:00 Temp 97.9 97.9 97.9 97.9 Pulse 105 108 Resp 20 20 B/P (MAP) 121/67 (85) 113/70 (84) Pulse Ox 94 97 95 O2 Delivery Room Air Room Air Room Air Room Air 01/04/17 01/04/17 01/04/17 01/04/17 20:36 20:37 21:00 21:04 Pulse 108 108 B/P (MAP) 113/70 113/70 Pulse Ox 97 97 O2 Delivery Room Air Room Air 01/04/17 01/05/17 01/05/17 01/05/17 23:00 03:00 07:00 08:00 Temp 98.3 97.6 97.8 98.3 97.6 97.8 Pulse 100 76 68 Resp 20 20 22 B/P (MAP) 129/62 (84) 110/56 (74) 106/62 (77) Pulse Ox 98 97 98 O2 Delivery Room Air Room Air Room Air Room Air 01/05/17 08:41 Pulse 68 B/P (MAP) 106/62 Intake and Output 01/04/17 01/04/17 01/05/17 15:00 23:00 07:00 Intake Total 500 ml 1250 ml 740 ml Balance 500 ml 1250 ml 740 ml MARIA GUADALUPE RIGGS MD Jan 05, 2017 11:36
[2017-01-05 11:42] LABS: PLT ESTIMATE ADEQUATE (ADEQUATE)
[2017-01-05] MEDS ORDERED: ALBUTEROL SULFATE 2.5 MG/3 ML NEBU. NEB PRN (11:45)
[2017-01-05] MEDS ORDERED: methylPREDNISolone SOD SUCC PF 125 MG/2 ML VIAL. IV ONE (11:45)
[2017-01-05] MEDS ORDERED: ONDANSETRON PF 4 MG/2 ML VIAL. IV PRN (11:45)
--- NOTE | 2017-01-05 12:03 | PDOC ---
CARDIO Progress Notes Date and Time Date of Service 01/05/2017 Time of Evaluation 0953 Subjective Subjective: No shortness of breath, No Palpitations, No Dizziness, Other ( still have some positional chest discomfort but better with side lying and sitting up) Vitals Vitals Vital Signs Date Time Temp Pulse Resp B/P (MAP) Pulse Ox O2 Delivery O2 Flow Rate FiO2 01/05/17 08:41 68 106/62 01/05/17 08:00 Room Air 01/05/17 07:00 97.8 22 98 97.8 Weight Weight [ ] Input and Output Intake and Output Intake and Output 01/05/17 07:00 Intake Total 2490 ml Balance 2490 ml Intake Oral 2490 ml # Voids 7 Laboratory Labs Laboratory Tests Test 01/04/17 13:30 01/05/17 04:45 Troponin I Quantitative < 0.017 ng/mL (0.000-0.055) White Blood Count 18.7 x10^3/uL (4.0-11.0) Red Blood Count 4.02 x10^6/uL (3.50-5.40) Hemoglobin 11.6 g/dL (12.0-15.5) Hematocrit 35.8 % (36.0-47.0) Mean Corpuscular Volume 89 fL (79-100) Mean Corpuscular Hemoglobin 29 pg (25-35) Mean Corpuscular Hemoglobin Concent 32 g/dL (31-37) Red Cell Distribution Width 13.7 % (11.5-14.5) Platelet Count 262 x10^3/uL (140-400) Neutrophils (%) (Auto) 77 % (31-73) Lymphocytes (%) (Auto) 17 % (24-48) Monocytes (%) (Auto) 5 % (0-9) Eosinophils (%) (Auto) 0 % (0-3) Basophils (%) (Auto) 0 % (0-3) Neutrophils # (Auto) 14.4 x10^3uL (1.8-7.7) Lymphocytes # (Auto) 3.2 x10^3/uL (1.0-4.8) Monocytes # (Auto) 1.0 x10^3/uL (0.0-1.1) Eosinophils # (Auto) 0.0 x10^3/uL (0.0-0.7) Basophils # (Auto) 0.0 x10^3/uL (0.0-0.2) Segmented Neutrophils % 89 % (35-66) Lymphocytes % 11 % (24-48) Platelet Estimate Adequate (ADEQUATE) Sodium Level 141 mmol/L (136-145) Potassium Level 4.3 mmol/L (3.5-5.1) Chloride Level 106 mmol/L (98-107) Carbon Dioxide Level 28 mmol/L (21-32) Anion Gap 7 (6-14) Blood Urea Nitrogen 13 mg/dL (7-20) Creatinine 0.8 mg/dL (0.6-1.0) Estimated GFR (Cockcroft-Gault) 74.5 BUN/Creatinine Ratio 16 (6-20) Glucose Level 135 mg/dL (70-99) Calcium Level 8.6 mg/dL (8.5-10.1) Total Bilirubin 0.1 mg/dL (0.2-1.0) Aspartate Amino Transf (AST/SGOT) 9 U/L (15-37) Alanine Aminotransferase (ALT/SGPT) 15 U/L (14-59) Alkaline Phosphatase 91 U/L (46-116) Total Protein 6.0 g/dL (6.4-8.2) Albumin 3.0 g/dL (3.4-5.0) Albumin/Globulin Ratio 1.0 (1.0-1.7) Triglycerides Level 70 mg/dL (0-150) Cholesterol Level 159 mg/dL (0-200) LDL Cholesterol, Calculated 101 mg/dL (0-100) VLDL Cholesterol, Calculated 14 mg/dL (0-40) Non-HDL Cholesterol Calculated 115 mg/dL (0-129) HDL Cholesterol 44 mg/dL (40-60) Cholesterol/HDL Ratio 3.6 Physical Exam HEENT: Neck Supple W Full Motion Chest: Symmetric LUNGS: Other (faint basilar wheeze) Heart: S1S2, RRR (SR) Abdomen: Soft N/T Extremities: No Edema, No Calf Tenderness Neurology: alert, oriented, follow commands Assessment Assessment 1. Atypical Chest pain: Noncardiac, likely GI/pleuritic. Limited TTE unremarkable for significant changes. 2. AECOPD with leukocytosis: WBC 18.7. continued tobaccoism per PCP 3. HTN: controlled 4. HLP: LDL 101 otherwise controlled. 5. CAD: PCI/HAYES to LAD 05/2016. stable. Recommendations 1. Continue with ASA/effient and secondary prevention measures 2. HR 70s, responded well with change from coreg to metoprolol. 3. F/U in office in 4 weeks. 4. Continue with lifetyle modification, Dietitian for diet changes. TAWNY SHEN APRN Jan 05, 2017 12:03
--- NOTE | 2017-01-05 13:39 | PDOC ---
Provider Note Provider Note dictated ANETA DIETZ MD Jan 05, 2017 13:39
[2017-01-05] MEDS: guaiFENesin DM 200MG/20MG 10 ML SYRUP PO PRN ×2 (14:13→19:55)
[2017-01-05] MEDS: ACETAMINOPHEN 325 MG TABLET. PO PRN ×2 (14:13→19:55)
[2017-01-05] MEDS: methylPREDNISolone SOD SUCC PF 40 MG/ML VIAL. IV SCH ×2 (14:17→19:55)
--- NOTE | 2017-01-05 14:45 | CONS ---
DATE OF CONSULTATION: PULMONARY CONSULTATION ATTENDING PHYSICIAN: Dr. Thomas. REASON FOR CONSULTATION: Chest pain, wheezing. HISTORY OF PRESENT ILLNESS: The patient is a 56-year-old obese patient who has been a smoker since past 35 years and continues to smoke 1 pack per day. She presented to the hospital with left-sided chest pain. The patient has a history of coronary artery disease and stent placement in the past. The patient also has been having cough with brown sputum production. No subjective fever. No chills. She was having shortness of breath for the same duration. The patient was wheezing as well. Her chest x-ray was reviewed and it was clear. She was seen by Cardiology and they felt that the pain was atypical. Echocardiogram was performed, which showed an ejection fraction of 55-60%. There was no evidence of any RV dysfunction. Consultation requested for further evaluation and management. PAST MEDICAL HISTORY: History of CHF, history of hypertension, history of CAD. She had a history of cardiomyopathy based on left heart catheterization in 2016, her EF was 40%, but now EF is much improved. History of pulmonary embolism 30 years ago after childbirth, she was placed on control pills, and developed PE. History of arthritis. PAST SURGICAL HISTORY: Hysterectomy, history of left knee surgery, history of PCI to LAD in 2016. FAMILY HISTORY: Coronary artery disease. SOCIAL HISTORY: Smoker for 40 years 1 pack per day and still smokes. ALLERGIES: CODEINE, DIPHENHYDRAMINE, AND KETOROLAC. MEDICATIONS: Were all reviewed as listed in the MRAD, including oral steroids, DuoNebs, and antibiotic with Rocephin. REVIEW OF SYSTEMS: Twelve-point system obtained. Pertinent positives discussed in my history of present illness, otherwise noncontributory. All systems that were negative were reviewed as well. PHYSICAL EXAMINATION: GENERAL: She is awake, following commands, in no distress. VITAL SIGNS: Blood pressure stable, afebrile, pulse ox 96% on room air. HEENT: Sclerae nonicteric. NECK: Supple. LUNGS: With bilateral expiratory wheezes. CARDIOVASCULAR: Exam is regular. ABDOMEN: Soft, nontender. EXTREMITIES: With no pitting edema. LABORATORY DATA: Reviewed. White cell count 18.7, which is bumped from 8.3 since yesterday; hemoglobin 11.6; platelets are 262. BUN is 13 and creatinine 0.8. IMPRESSION: 1. Dyspnea secondary to acute exacerbation of chronic obstructive pulmonary disease triggered by acute bronchitis. 2. Bronchospasm secondary to acute exacerbation of chronic obstructive pulmonary disease. She has no evidence of congestive heart failure on chest x-ray. 3. Left-sided chest pain. Cardiology has been following. They do not think that the patient's chest pain is related to her coronary artery disease. She has a remote history of PE 30 years ago after childbirth when was placed on control pills. Clinically, less likely thromboembolic disease, but I would obtain V/Q scan. 4. Ongoing tobaccoism for 35-40 years, suspect underlying chronic obstructive pulmonary disease. 5. History of coronary artery disease. Previously, she had an EF of 40%, but now recent echo shows EF of 55-60%. RECOMMENDATIONS: 1. Continue with present bronchodilators. 2. Discontinue oral steroids and change to IV steroids to improve bronchospasm. 3. Empiric antibiotic. 4. Obtain sputum for C and S. 5. Obtain V/Q scan. 6. Consider holding metoprolol if bronchospasm does not resolve in the next 24 hours. 7. Smoking cessation counseling provided. ANETA DIETZ MD DR: HEYDI/jung JOB#: [id number] / [id number]
[2017-01-05 15:00] VITALS: BP 124/70
--- NOTE | 2017-01-05 16:51 | RAD ---
Lung scan 01/05/2017 Clinical history: Chest pain and shortness of breath. Technique: After the administration of 15.2 mCi of xenon-133 gas, ventilation images of both lungs were obtained using the gamma camera. After the intravenous administration of 5.5 mCi of Technetium 99m MAA, perfusion images of both lungs were obtained using the gamma camera. Findings: Comparison is made to PA and lateral chest radiographs performed earlier today. These demonstrate no acute pulmonary infiltrate. Homogeneous ventilation and perfusion to both lungs is seen. No unmatched perfusion defect is noted. These findings are consistent with a normal lung scan. Impression: Normal lung scan.
--- NOTE | 2017-01-05 16:58 | RAD ---
PA and lateral chest radiographs 01/04/2017 Clinical history: Shortness of breath and hypertension. Coronary artery disease. Emphysema. PA and lateral digital radiographs of the chest were obtained. Comparison study is dated 01/03/2017. The cardiac and mediastinal silhouettes within normal limits in size and configuration. No acute pulmonary infiltrate is seen. No pleural effusion or pneumothorax is noted. The osseous structures are unchanged. Impression: No acute abnormality is seen.
[2017-01-05] MEDS: BENZOCAINE/MENTHOL LOZENGE. PO PRN (19:54)
[2017-01-05] MEDS: ATORVASTATIN CALCIUM 40 MG TABLET. PO SCH (19:55)
[2017-01-05] MEDS: LISINOPRIL 2.5 MG TABLET PO SCH (19:55)
[2017-01-05 19:59] VITALS: BP 132/73
[2017-01-05 23:35] VITALS: BP 104/56
[2017-01-06 03:40] VITALS: BP 123/60
[2017-01-06] MEDS: BENZOCAINE/MENTHOL LOZENGE. PO PRN ×3 (06:11→19:54)
[2017-01-06] MEDS: guaiFENesin DM 200MG/20MG 10 ML SYRUP PO PRN ×3 (06:11→19:54)
[2017-01-06] MEDS: methylPREDNISolone SOD SUCC PF 40 MG/ML VIAL. IV SCH ×3 (06:11→19:53)
[2017-01-06] MEDS: ACETAMINOPHEN 325 MG TABLET. PO PRN ×3 (06:11→19:54)
[2017-01-06] MEDS: IPRATRPIUM/ALBUTEROL 0.5/2.5MG 3 ML NEBU. NEB SCH ×5 (06:31→20:28)
[2017-01-06 07:00] VITALS: BP 121/72
[2017-01-06] MEDS: BUDESONIDE 0.5 MG/2 ML NEBU. NEB SCH ×2 (07:14→20:00)
[2017-01-06] MEDS: PRASUGREL 10 MG TABLET. PO SCH (07:58)
[2017-01-06] MEDS: ASPIRIN ENTERIC COATED 81 MG TABLET.DR. PO SCH (07:58)
[2017-01-06] MEDS: PANTOPRAZOLE 40 MG TABLET.DR. PO SCH (07:59)
[2017-01-06] MEDS: DOXYCYCLINE HYCLATE 100 MG TABLET PO SCH ×2 (07:59→19:54)
[2017-01-06] MEDS: NICOTINE 21MG PATCH. TD SCH (08:00)
[2017-01-06] MEDS ORDERED: predniSONE 20 MG TABLET PO SCH (09:00)
[2017-01-06] MEDS: METOPROLOL TART IMMED RELEASE 50 MG TABLET. PO SCH ×2 (09:16→19:54)
[2017-01-06] MEDS: FUROSEMIDE 40 MG TABLET. PO SCH (09:17)
--- NOTE | 2017-01-06 09:57 | PDOC ---
PROGRESS NOTES Chief Complaint Chief Complaint COPD, exacerbation w/ acute bronchitis, acute dyspnea bronchospasm htn tobaccoism, cessation discussed GERD obesity, BMI 33 CAD History of Present Illness History of Present Illness cont IV steroids taper to PO tomorrow may DC soon pt feels better Vitals Vitals Vital Signs Date Time Temp Pulse Resp B/P (MAP) Pulse Ox O2 Delivery O2 Flow Rate FiO2 01/06/17 09:16 78 121/72 01/06/17 08:00 Room Air 01/06/17 07:18 97 01/06/17 07:00 97.8 17 97.8 Physical Exam General: Alert, Oriented X3, Cooperative, No acute distress Heart: Regular rate (sinus tach), Normal S1, Normal S2, No murmurs Lungs: Wheezing, Crackles, Other Abdomen: Soft, No tenderness Extremities: No cyanosis, No edema Skin: No breakdown, No significant lesion Review of Systems Review of Systems no n.v/d cough better still very weak Assessment and Plan Assessmemt and Plan Problems Medical Problems: (1) Cardiac chest pain Status: Acute (2) COPD exacerbation Status: Acute (3) Nonspecific chest pain Status: Acute Problems: Comment Review of Relevant I have reviewed the following items harjeet (where applicable) has been applied. Labs Laboratory Tests Test 01/04/17 13:30 01/05/17 04:45 Troponin I Quantitative < 0.017 ng/mL (0.000-0.055) White Blood Count 18.7 x10^3/uL (4.0-11.0) Red Blood Count 4.02 x10^6/uL (3.50-5.40) Hemoglobin 11.6 g/dL (12.0-15.5) Hematocrit 35.8 % (36.0-47.0) Mean Corpuscular Volume 89 fL (79-100) Mean Corpuscular Hemoglobin 29 pg (25-35) Mean Corpuscular Hemoglobin Concent 32 g/dL (31-37) Red Cell Distribution Width 13.7 % (11.5-14.5) Platelet Count 262 x10^3/uL (140-400) Neutrophils (%) (Auto) 77 % (31-73) Lymphocytes (%) (Auto) 17 % (24-48) Monocytes (%) (Auto) 5 % (0-9) Eosinophils (%) (Auto) 0 % (0-3) Basophils (%) (Auto) 0 % (0-3) Neutrophils # (Auto) 14.4 x10^3uL (1.8-7.7) Lymphocytes # (Auto) 3.2 x10^3/uL (1.0-4.8) Monocytes # (Auto) 1.0 x10^3/uL (0.0-1.1) Eosinophils # (Auto) 0.0 x10^3/uL (0.0-0.7) Basophils # (Auto) 0.0 x10^3/uL (0.0-0.2) Segmented Neutrophils % 89 % (35-66) Lymphocytes % 11 % (24-48) Platelet Estimate Adequate (ADEQUATE) Sodium Level 141 mmol/L (136-145) Potassium Level 4.3 mmol/L (3.5-5.1) Chloride Level 106 mmol/L (98-107) Carbon Dioxide Level 28 mmol/L (21-32) Anion Gap 7 (6-14) Blood Urea Nitrogen 13 mg/dL (7-20) Creatinine 0.8 mg/dL (0.6-1.0) Estimated GFR (Cockcroft-Gault) 74.5 BUN/Creatinine Ratio 16 (6-20) Glucose Level 135 mg/dL (70-99) Calcium Level 8.6 mg/dL (8.5-10.1) Total Bilirubin 0.1 mg/dL (0.2-1.0) Aspartate Amino Transf (AST/SGOT) 9 U/L (15-37) Alanine Aminotransferase (ALT/SGPT) 15 U/L (14-59) Alkaline Phosphatase 91 U/L (46-116) Total Protein 6.0 g/dL (6.4-8.2) Albumin 3.0 g/dL (3.4-5.0) Albumin/Globulin Ratio 1.0 (1.0-1.7) Triglycerides Level 70 mg/dL (0-150) Cholesterol Level 159 mg/dL (0-200) LDL Cholesterol, Calculated 101 mg/dL (0-100) VLDL Cholesterol, Calculated 14 mg/dL (0-40) Non-HDL Cholesterol Calculated 115 mg/dL (0-129) HDL Cholesterol 44 mg/dL (40-60) Cholesterol/HDL Ratio 3.6 Medications Current Medications Methylprednisolone Sodium Succinate (SOLU-Medrol 125MG VIAL) 125 mg 1X ONCE IV Last administered on 01/04/17 00:45; Start 01/04/17 at 00:45; Stop 01/04/17 at 00:46; Status DC Albuterol/ Ipratropium (Duoneb) 3 ml 1X ONCE NEB Last administered on 01:11; Start 01/04/17 at 00:45; Stop 01/04/17 at 00:46; Status DC Ondansetron HCl (Zofran) 4 mg 1X ONCE IV Last administered on 01/04/17 00:45 ; Start 01/04/17 at 00:45; Stop 01/04/17 at 00:46; Status DC Ondansetron HCl (Zofran) 4 mg 1X ONCE IV Last administered on 01/04/17 01:47 ; Start 01/04/17 at 01:45; Stop 01/04/17 at 01:51; Status DC Albuterol Sulfate (Ventolin Neb Soln) 2.5 mg 1X ONCE NEB Last administered on 01/04/17 01:52; Start 01/04/17 at 02:00; Stop 01/04/17 at 02:01; Status DC Ondansetron HCl (Zofran) 4 mg PRN Q8HRS PRN IV NAUSEA/VOMITING Last administered on 01/04/17 20:08; Start 01/04/17 at 02:15; Stop 01/05/17 at 02:14 ; Status DC Acetaminophen (Tylenol) 650 mg PRN Q4HRS PRN PO FEVER Last administered on 01/04 19:47; Start 01/04/17 at 02:15; Stop 01/05/17 at 02:14; Status DC Albuterol/ Ipratropium (Duoneb) 3 ml RTQID NEB ; Start 01/04/17 at 08:00; Stop 01/04/17 at 09:10; Status DC Albuterol/ Ipratropium (Duoneb) 3 ml Q4HRS W/A NEB Last administered on 19:55; Start 01/04/17 at 10:00; Stop 01/05/17 at 09:59; Status DC Budesonide (Pulmicort) 0.5 mg RTBID NEB Last administered on 01/06/17 07:14; Start 01/04/17 at 20:00 Budesonide (Pulmicort) 0.5 mg 1X ONCE NEB Last administered on 01/04/17 11:08 ; Start 01/04/17 at 09:15; Stop 01/04/17 at 09:16; Status DC Atorvastatin Calcium (Lipitor) 40 mg QHS PO Last administered on 01/05/17 19: 55; Start 01/04/17 at 21:00 Carvedilol (Coreg) 6.25 mg BIDWMEALS PO Last administered on 01/04/17 09:33; Start 01/04/17 at 09:30; Stop 01/04/17 at 10:49; Status DC Furosemide (Lasix) 40 mg DAILY PO ; Start 01/05/17 at 09:00 Lisinopril (Prinivil) 2.5 mg QHS PO Last administered on 01/05/17 19:55; Start 01/04/17 at 21:00 Nicotine (Nicoderm Cq 21mg) 1 patch DAILY TD Last administered on 01/06/17 08: 00; Start 01/04/17 at 10:00 Nicotine Polacrilex (Nicorette Gum) 1 each PRN Q2HRS PRN BC SMOKING CESSATION; Start 01/04/17 at 09:15 Prasugrel (Effient) 10 mg DAILYWBKFT PO Last administered on 01/06/17 07:58; Start 01/04/17 at 09:30 Ceftriaxone Sodium 1 gm/ Sodium Chloride 50 ml @ 100 mls/hr Q24H IV Last administered on 01/05/17 13:03; Start 01/04/17 at 11:00 Doxycycline Hyclate (Vibra-Tab) 100 mg 1X ONCE PO Last administered on 12:02; Start 01/04/17 at 10:30; Stop 01/04/17 at 10:31; Status DC Doxycycline Hyclate (Vibra-Tab) 100 mg BID PO Last administered on 01/06/17 07 :59; Start 01/04/17 at 21:00 Metoprolol Tartrate (Lopressor) 50 mg BID PO Last administered on 01/06/17 09: 16; Start 01/04/17 at 21:00 Aspirin (Ecotrin) 81 mg DAILYWBKFT PO Last administered on 01/06/17 07:58; Start 01/05/17 at 08:00 Pantoprazole Sodium (Protonix) 40 mg DAILYAC PO Last administered on 01/06/17 07:59; Start 01/04/17 at 11:00 Prednisone (Prednisone) 60 mg 1X ONCE PO ; Start 01/05/17 at 11:30; Stop at 11:32; Status DC Prednisone (Prednisone) 40 mg DAILY PO ; Start 01/06/17 at 09:00; Stop 01/06/17 at 09:00; Status DC Throat Lozenges (Cepacol Sore Throat Lozenge) 1 maria luisa PRN Q2HRS PRN PO SORE THROAT Last administered on 01/06/17 06:11; Start 01/05/17 at 11:45 Guaifenesin (Robitussin Dm) 10 ml PRN Q6HRS PRN PO COUGH Last administered on 06:11; Start 01/05/17 at 11:45 Methylprednisolone Sodium Succinate (SOLU-Medrol 125MG VIAL) 125 mg 1X ONCE IV Last administered on 01/05/17 13:04; Start 01/05/17 at 11:45; Stop 01/05/17 at 11:46; Status DC Ondansetron HCl (Zofran) 4 mg PRN Q8HRS PRN IV NAUSEA/VOMITING 1ST CHOICE Last administered on 01/06/17 07:59; Start 01/05/17 at 11:45 Albuterol/ Ipratropium (Duoneb) 3 ml Q4HRS W/A NEB Last administered on 07:13; Start 01/05/17 at 14:00 Albuterol Sulfate (Ventolin Neb Soln) 2.5 mg PRN QID PRN NEB SOA; Start at 11:45 Methylprednisolone Sodium Succinate (SOLU-Medrol 40MG VIAL) 60 mg Q8HRS IV Last administered on 01/06/17 06:11; Start 01/05/17 at 14:00 Acetaminophen (Tylenol) 650 mg PRN Q6HRS PRN PO pain or fever Last administered on 01/06/17 06:11; Start 01/05/17 at 14:15 Active Scripts Active Atorvastatin Calcium 40 Mg Tablet 40 Mg PO QHS SIG: ONE P.O. AT BEDTIME Effient (Prasugrel Hcl) 10 Mg Tablet 10 Mg PO DAILYWBKFT SIG: ONE P.O. DAILY; MAY NOT STOP WITHOUT AUTHORIZATION FROM CARDIOLOGY Lisinopril 2.5 Mg Tablet 2.5 Mg PO QHS SIG: ONE P.O. AT BEDTIME Furosemide 40 Mg Tablet 40 Mg PO DAILY SIG: ONE DAILY Reported NICODERM CQ 21mg (Nicotine) 1 Each Patch.td24 1 Patch TP DAILY Nicorette (Nicotine Polacrilex) 2 Mg Gum 2 Mg BC PRN Q2HRS PRN Vitals/I & O Vital Sign - Last 24 Hours 01/05/17 01/05/17 01/05/17 01/05/17 11:00 15:00 19:55 19:56 Temp 98.0 97.2 98.0 97.2 Pulse 74 66 66 66 Resp 22 22 B/P (MAP) 123/86 (98) 124/70 (88) 124/70 124/70 Pulse Ox 96 98 O2 Delivery Nasal Cannula Room Air 01/05/17 01/05/17 01/05/17 01/06/17 19:59 20:00 23:35 03:40 Temp 98.1 98.4 97.9 98.1 98.4 97.9 Pulse 85 87 77 Resp 22 18 18 B/P (MAP) 132/73 (92) 104/56 (72) 123/60 (81) Pulse Ox 94 96 93 O2 Delivery Room Air Room Air Room Air Room Air 01/06/17 01/06/17 01/06/17 01/06/17 07:00 07:17 07:18 08:00 Temp 97.8 97.8 Pulse 78 Resp 17 B/P (MAP) 121/72 (88) Pulse Ox 96 97 97 O2 Delivery Room Air Room Air Room Air Room Air 01/06/17 09:16 Pulse 78 B/P (MAP) 121/72 Intake and Output 01/05/17 01/05/17 01/06/17 14:59 22:59 06:59 Intake Total 720 ml 240 ml 120 ml Balance 720 ml 240 ml 120 ml MARIA GUADALUPE RIGGS MD Jan 06, 2017 09:57
[2017-01-06 11:13] VITALS: BP 129/76
--- NOTE | 2017-01-06 14:14 | PDOC ---
PULMONARY PROGRESS NOTES Subjective sob better. has cough, chest tightness and pain. has post nasal drip Vitals Vital Signs Date Time Temp Pulse Resp B/P (MAP) Pulse Ox O2 Delivery O2 Flow Rate FiO2 01/06/17 11:23 Room Air 01/06/17 11:13 97.8 65 17 129/76 (93) 95 97.8 ROS: No Nausea, No Chest Pain General: Alert, Oriented X4 HEENT: Other (nc at perrl) Lungs: Wheezing, Other Cardiovascular: S1, S2 Abdomen: Soft, Non-tender Neuro Exam: Alert, Oriented Extremities: No Edema Skin: Warm Labs Laboratory Tests Test 01/05/17 04:45 White Blood Count 18.7 x10^3/uL (4.0-11.0) Red Blood Count 4.02 x10^6/uL (3.50-5.40) Hemoglobin 11.6 g/dL (12.0-15.5) Hematocrit 35.8 % (36.0-47.0) Mean Corpuscular Volume 89 fL (79-100) Mean Corpuscular Hemoglobin 29 pg (25-35) Mean Corpuscular Hemoglobin Concent 32 g/dL (31-37) Red Cell Distribution Width 13.7 % (11.5-14.5) Platelet Count 262 x10^3/uL (140-400) Neutrophils (%) (Auto) 77 % (31-73) Lymphocytes (%) (Auto) 17 % (24-48) Monocytes (%) (Auto) 5 % (0-9) Eosinophils (%) (Auto) 0 % (0-3) Basophils (%) (Auto) 0 % (0-3) Neutrophils # (Auto) 14.4 x10^3uL (1.8-7.7) Lymphocytes # (Auto) 3.2 x10^3/uL (1.0-4.8) Monocytes # (Auto) 1.0 x10^3/uL (0.0-1.1) Eosinophils # (Auto) 0.0 x10^3/uL (0.0-0.7) Basophils # (Auto) 0.0 x10^3/uL (0.0-0.2) Segmented Neutrophils % 89 % (35-66) Lymphocytes % 11 % (24-48) Platelet Estimate Adequate (ADEQUATE) Sodium Level 141 mmol/L (136-145) Potassium Level 4.3 mmol/L (3.5-5.1) Chloride Level 106 mmol/L (98-107) Carbon Dioxide Level 28 mmol/L (21-32) Anion Gap 7 (6-14) Blood Urea Nitrogen 13 mg/dL (7-20) Creatinine 0.8 mg/dL (0.6-1.0) Estimated GFR (Cockcroft-Gault) 74.5 BUN/Creatinine Ratio 16 (6-20) Glucose Level 135 mg/dL (70-99) Calcium Level 8.6 mg/dL (8.5-10.1) Total Bilirubin 0.1 mg/dL (0.2-1.0) Aspartate Amino Transf (AST/SGOT) 9 U/L (15-37) Alanine Aminotransferase (ALT/SGPT) 15 U/L (14-59) Alkaline Phosphatase 91 U/L (46-116) Total Protein 6.0 g/dL (6.4-8.2) Albumin 3.0 g/dL (3.4-5.0) Albumin/Globulin Ratio 1.0 (1.0-1.7) Triglycerides Level 70 mg/dL (0-150) Cholesterol Level 159 mg/dL (0-200) LDL Cholesterol, Calculated 101 mg/dL (0-100) VLDL Cholesterol, Calculated 14 mg/dL (0-40) Non-HDL Cholesterol Calculated 115 mg/dL (0-129) HDL Cholesterol 44 mg/dL (40-60) Cholesterol/HDL Ratio 3.6 Medications Active Scripts Medications Dose Route/Sig Max Daily Dose Days Date Category Dose Instructions NICODERM CQ 21mg (Nicotine) 1 Each Patch.td24 1 Patch TP DAILY 01/04/17 Reported Atorvastatin Calcium 40 Mg Tablet 40 Mg PO QHS 06/21/16 Rx SIG: ONE P.O. AT BEDTIME Effient (Prasugrel Hcl) 10 Mg Tablet 10 Mg PO DAILYWBKFT 06/21/16 Rx SIG: ONE P.O. DAILY; MAY NOT STOP WITHOUT AUTHORIZATION FROM CARDIOLOGY Lisinopril 2.5 Mg Tablet 2.5 Mg PO QHS 06/21/16 Rx SIG: ONE P.O. AT BEDTIME Furosemide 40 Mg Tablet 40 Mg PO DAILY 06/21/16 Rx SIG: ONE DAILY Nicorette (Nicotine Polacrilex) 2 Mg Gum 2 Mg BC PRN Q2HRS PRN 06/20/16 Reported Impression . IMPRESSION: 1. Dyspnea secondary to acute exacerbation of chronic obstructive pulmonary disease triggered by acute bronchitis. 2. Bronchospasm secondary to acute exacerbation of chronic obstructive pulmonary disease. She has no evidence of congestive heart failure on chest x-ray. 3. Left-sided chest pain. Cardiology has been following. They do not think that the patient's chest pain is related to her coronary artery disease. She has a remote history of PE 30 years ago after childbirth when was placed on control pills. vq scan nl, no pe. 4. Ongoing tobaccoism for 35-40 years, suspect underlying chronic obstructive pulmonary disease. 5. History of coronary artery disease. Previously, she had an EF of 40%, but now recent echo shows EF of 55-60%. 6. allergic rhinitis Plan . RECOMMENDATIONS: 1. Continue with present bronchodilators. 2. IV steroids to improve bronchospasm. 3. Empiric antibiotic. 4. Obtain sputum for C and S. 5. V/Q scan normal. 6. Consider holding metoprolol if bronchospasm does not resolve in the next 24 hours. 7. Smoking cessation counseling provided. 8. MAGALYS Starkey pt, MD Jan 06, 2017 14:14
[2017-01-06 15:00] VITALS: BP 123/68
[2017-01-06] MEDS: LISINOPRIL 2.5 MG TABLET PO SCH (19:54)
[2017-01-06] MEDS: ATORVASTATIN CALCIUM 40 MG TABLET. PO SCH (19:54)
[2017-01-06 19:59] VITALS: BP 133/47
[2017-01-06] MEDS ORDERED: MONTELUKAST SODIUM 10 MG TABLET. PO SCH (21:00)
[2017-01-06 23:40] VITALS: BP 122/49
[2017-01-07] MEDS: BENZOCAINE/MENTHOL LOZENGE. PO PRN (05:23)
[2017-01-07] MEDS: ACETAMINOPHEN 325 MG TABLET. PO PRN (05:24)
[2017-01-07] MEDS: methylPREDNISolone SOD SUCC PF 40 MG/ML VIAL. IV SCH (05:24)
[2017-01-07] MEDS: guaiFENesin DM 200MG/20MG 10 ML SYRUP PO PRN (05:25)
[2017-01-07] MEDS: BUDESONIDE 0.5 MG/2 ML NEBU. NEB SCH (05:51)
[2017-01-07] MEDS: IPRATRPIUM/ALBUTEROL 0.5/2.5MG 3 ML NEBU. NEB SCH (05:51)
[2017-01-07] MEDS ORDERED: hydrOXYzine 10 MG TABLET PO PRN (06:15)
[2017-01-07 07:00] VITALS: BP 177/79
[2017-01-07] MEDS: PANTOPRAZOLE 40 MG TABLET.DR. PO SCH (08:17)
[2017-01-07] MEDS: DOXYCYCLINE HYCLATE 100 MG TABLET PO SCH (08:17)
[2017-01-07] MEDS: PRASUGREL 10 MG TABLET. PO SCH (08:17)
[2017-01-07] MEDS: NICOTINE 21MG PATCH. TD SCH (08:17)
[2017-01-07] MEDS: ASPIRIN ENTERIC COATED 81 MG TABLET.DR. PO SCH (08:17)
[2017-01-07] MEDS: FUROSEMIDE 40 MG TABLET. PO SCH (08:19)
[2017-01-07] MEDS ORDERED: PRED-220 PO (08:49)
[2017-01-07] MEDS ORDERED: DOXY100T PO (08:49)
[2017-01-07 09:17] VITALS: BP 153/82
[2017-01-07] MEDS: METOPROLOL TART IMMED RELEASE 50 MG TABLET. PO SCH (09:17)
--- NOTE | 2017-01-07 14:59 | PDOC3 ---
Discharge Summary Visit Information Date of Admission: Jan 04, 2017 Date of Discharge: Jan 07, 2017 Admitting Diagnosis: hypoxia Final Diagnosis COPD, exacerbation w/ acute bronchitis, acute dyspnea bronchospasm htn tobaccoism, cessation discussed GERD obesity, BMI 33 CAD Problems Medical Problems: (1) Cardiac chest pain Status: Acute (2) COPD exacerbation Status: Acute (3) Nonspecific chest pain Status: Acute Brief Hospital Course Allergies Allergies Coded Allergies Type Severity Reaction Last Updated Verified codeine Allergy Severe Anaphylaxis 08/04/14 Yes ketorolac Allergy Severe Anaphylaxis 08/04/14 Yes diphenhydramine Allergy Intermediate Hives 06/19/16 Yes Vital Signs Vital Signs Date Time Temp Pulse Resp B/P (MAP) Pulse Ox O2 Delivery O2 Flow Rate FiO2 01/07/17 09:17 77 153/82 01/07/17 08:23 Room Air 01/07/17 07:00 98.0 20 97 98.0 Brief Hospital Course Ms. Sanabria is a 56 old female, ongiong tobacco, prior COPD exac. admitted for dyspnea and cough and sputum Abx steroids, nebs and toilet. pulm consult, will follow outpatient, tobacco cessation CV consult for chest pain, w/u stable Pulm - VQ low prob Discharge Information Condition at Discharge: Improved Follow Up: Weeks Disposition/Orders: D/C to Home Scheduled Atorvastatin Calcium (Atorvastatin Calcium), 40 MG PO QHS Carvedilol (Carvedilol), 6.25 MG PO BIDWMEALS Doxycycline Hyclate (Doxycycline Hyclate), 100 MG PO BID Furosemide (Furosemide), 40 MG PO DAILY Lisinopril (Lisinopril), 2.5 MG PO QHS Nicotine (NICODERM CQ 21mg), 1 PATCH TP DAILY, (Reported) Prasugrel Hcl (Effient), 10 MG PO DAILYWBKFT Prednisone (Prednisone), 10 MG PO UD Scheduled PRN Nicotine Polacrilex (Nicorette), 2 MG BC PRN Q2HRS PRN for SMOKING CESSATION, ( Reported) Patient Instructions Patient Instructions prednisone taper from 60 to 10 over 10 days 5 days additional BID doxycycline time > 30 min MARIA GUADALUPE RIGGS MD Jan 07, 2017 14:59
== END 2017-01-07 10:21 | disposition home or self-care (01) | DRG 191 ==
LOC: ER 23:46 → 5 SOUTH 01-04 01:00
PROVIDERS: ADMIT Internal Medicine; ATTEND Internal Medicine
DX: J44.0 Chronic obstructive pulmonary disease with (acute) lower respiratory infection (principal); I42.9 Cardiomyopathy, unspecified; E66.9 Obesity, unspecified; J44.1 Chronic obstructive pulmonary disease with (acute) exacerbation; E78.5 Hyperlipidemia, unspecified; F17.210 Nicotine dependence, cigarettes, uncomplicated; I11.0 Hypertensive heart disease with heart failure; I50.9 Heart failure, unspecified; I25.10 Atherosclerotic heart disease of native coronary artery without angina pectoris; J20.9 Acute bronchitis, unspecified; J30.9 Allergic rhinitis, unspecified; K21.9 Gastro-esophageal reflux disease without esophagitis; M17.0 Bilateral primary osteoarthritis of knee; R09.02 Hypoxemia; R09.1 Pleurisy; R00.0 Tachycardia, unspecified; Z82.49 Family history of ischemic heart disease and other diseases of the circulatory system; Z86.711 Personal history of pulmonary embolism; Z90.710 Acquired absence of both cervix and uterus; Z95.5 Presence of coronary angioplasty implant and graft; Z68.33 Body mass index [BMI] 33.0-33.9, adult; Z88.5 Allergy status to narcotic agent; Z71.6 Tobacco abuse counseling; Z72.89 Other problems related to lifestyle
CPT/HCPCS: 36415; 71010; 71020; 78582; 80053; 80061; 84443; 84484; 85007; 85027; 93005; 93308; 94250; 94640; 94760; 96374; 96375; A9540; A9558; J0696; J2405; J2920; J2930; J7620; 99285-25

== ENCOUNTER 2017-06-16 09:00 | Inpatient (IN) | payer SELFPAY ==
[~2017-06-16] VITALS: Ht 170.2 cm; Wt 96.6 kg
[~2017-06-16 09:00] MED LIST changes: +ASPI325T8 PO; +DOXY100T PO; +NICO1PAT21 TP; +PRED-220 PO
[2017-06-16] MEDS ORDERED: fentaNYL PF VIAL 100 MCG/2 ML VIAL IV ONE (09:30)
[2017-06-16 09:45] LABS: BASO % 0 % (0-3); EOS % 2 % (0-3); HEMOGLOBIN 12.8 g/dL (12.0-15.5); LYMPH # 1.9 x10^3/uL (1.0-4.8); LYMPH % 15 % (24-48); MEAN CORPUSCULAR HEMOGLOBIN 28 pg (25-35); MEAN CORPUSCULAR HGB CONC 33 g/dL (31-37); MEAN CORPUSCULAR VOLUME 86 fL (79-100); MONO % 6 % (0-9); NEUT % 78 % (31-73); PLATELET COUNT 242 x10^3/uL (140-400); RED BLOOD COUNT 4.51 x10^6/uL (3.50-5.40); RED CELL DISTRIBUTION WIDTH 13.9 % (11.5-14.5)
[2017-06-16 09:53] LABS: PROTHROMBIN TIME PATIENT 12.6 SEC (11.7-14.0)
[2017-06-16 09:57] LABS: CALCIUM 9.4 mg/dL (8.5-10.1); CREATININE 0.8 mg/dL (0.6-1.0); GFR 74.5
[2017-06-16 10:03] LABS: ALBUMIN 3.3 g/dL (3.4-5.0); ALBUMIN/GLOBULIN RATIO 0.8 (1.0-1.7); MAGNESIUM 1.8 mg/dL (1.8-2.4); TOTAL BILIRUBIN 0.3 mg/dL (0.2-1.0); TOTAL PROTEIN 7.4 g/dL (6.4-8.2)
[2017-06-16 10:07] LABS: OBC FLU VALID
--- NOTE | 2017-06-16 10:10 | PHYS DOC ---
Past Medical History Past Medical History: CAD, CHF, COPD, High Cholesterol, Hypertension, Other Additional Past Medical Histor: ectopic , CARDIAC STENTS,PE Past Surgical History: Angioplasty, Hysterectomy, Other Additional Past Surgical Histo: 8 LEFT KNEE PROCEDURES, CARDIAC STENTS Additional Information: SMOKES 1 CIGARETTE A DAY Alcohol Use: Occasionally Drug Use: None Adult General Chief Complaint Chief Complaint: CHEST PAIN HPI HPI Patient is a 56 year old female with history of high cholesterol, hypertension , COPD, CHF, cardiac stents, who presents today with 9 out of 10 generalized body aches that began 3 days ago. Patient states this morning she developed generalized bilateral upper chest pain radiating to her shoulders. Patient denies anything making the pain better or worse. Patient unable to describe the pain. She is restless moving around in bed. Denies any nausea or vomiting. She states she's had a cough for 1 month. She states she was seen by the PCP who gave her a cough syrup Ophthalmic Medical Technician Guarav Review of Systems Review of Systems Constitutional: Denies fever or chills [] Eyes: Denies change in visual acuity, redness, or eye pain [] HENT: Denies nasal congestion or sore throat [] Respiratory: Denies cough or shortness of breath [] Cardiovascular: Chest pain GI: Denies abdominal pain, nausea, vomiting, bloody stools or diarrhea [] : Denies dysuria or hematuria [] Musculoskeletal: Denies back pain or joint pain [] Integument: Denies rash or skin lesions [] Neurologic: Denies headache, focal weakness or sensory changes [] All other systems were reviewed and found to be within normal limits, except as documented in this note. Current Medications Current Medications Current Medications Medications (Trade) Dose Ordered Sig/Mary Start Time Stop Time Status Last Admin Dose Admin Acetaminophen (Tylenol) 650 mg PRN Q4HRS PRN 06/16/17 10:45 06/17/17 10:44 UNV Fentanyl Citrate (Fentanyl 2ml Vial) 50 mcg PRN Q2HR PRN 06/16/17 10:45 06/17/17 10:44 UNV Ondansetron HCl (Zofran) 4 mg PRN Q8HRS PRN 06/16/17 10:45 06/17/17 10:44 UNV Potassium Chloride (Klor-Con) 40 meq 1X ONCE 06/16/17 10:15 06/16/17 10:16 DC 06/16/17 10:33 40 MEQ Allergies Allergies Allergies Coded Allergies Type Severity Reaction Last Updated Verified codeine Allergy Severe Anaphylaxis, LORTAB OK 03/26/17 Yes ketorolac Allergy Severe Anaphylaxis 08/04/14 Yes diphenhydramine Allergy Intermediate Hives 06/19/16 Yes Physical Exam Physical Exam Constitutional: Well developed, well nourished, no acute distress, non-toxic appearance. [] HENT: Normocephalic, atraumatic, bilateral external ears normal, oropharynx moist, no oral exudates, nose normal. [] Eyes: PERRLA, EOMI, conjunctiva normal, no discharge. [] Neck: Normal range of motion, no tenderness, supple, no stridor. [] Cardiovascular:Heart rate regular rhythm, no murmur [] Lungs & Thorax: Bilateral breath sounds clear to auscultation [] Abdomen: Bowel sounds normal, soft, no tenderness, no masses, no pulsatile masses. [] Skin: Warm, dry, no erythema, no rash. [] Back: No tenderness, no CVA tenderness. [] Extremities: No tenderness, no cyanosis, no clubbing, ROM intact, no edema. [] Neurologic: Alert and oriented X 3, normal motor function, normal sensory function, no focal deficits noted. [] Psychologic: Affect normal, judgement normal, mood normal. [] Current Patient Data Vital Signs Vital Signs Date Time Temp Pulse Resp B/P (MAP) Pulse Ox O2 Delivery O2 Flow Rate FiO2 06/16/17 09:35 24 95 Room Air 06/16/17 09:00 98.5 110 142/75 (97) 98.5 Lab Values Laboratory Tests Test 06/16/17 09:08 06/16/17 09:37 06/16/17 10:17 White Blood Count 13.0 x10^3/uL (4.0-11.0) H Red Blood Count 4.51 x10^6/uL (3.50-5.40) Hemoglobin 12.8 g/dL (12.0-15.5) Hematocrit 39.0 % (36.0-47.0) Mean Corpuscular Volume 86 fL (79-100) Mean Corpuscular Hemoglobin 28 pg (25-35) Mean Corpuscular Hemoglobin Concent 33 g/dL (31-37) Red Cell Distribution Width 13.9 % (11.5-14.5) Platelet Count 242 x10^3/uL (140-400) Neutrophils (%) (Auto) 78 % (31-73) H Lymphocytes (%) (Auto) 15 % (24-48) L Monocytes (%) (Auto) 6 % (0-9) Eosinophils (%) (Auto) 2 % (0-3) Basophils (%) (Auto) 0 % (0-3) Neutrophils # (Auto) 10.1 x10^3uL (1.8-7.7) H Lymphocytes # (Auto) 1.9 x10^3/uL (1.0-4.8) Monocytes # (Auto) 0.7 x10^3/uL (0.0-1.1) Eosinophils # (Auto) 0.2 x10^3/uL (0.0-0.7) Basophils # (Auto) 0.0 x10^3/uL (0.0-0.2) Prothrombin Time 12.6 SEC (11.7-14.0) Prothrombin Time INR 1.0 (0.8-1.1) D-Dimer (Lucille) 0.46 ug/mlFEU (0.00-0.50) Sodium Level 134 mmol/L (136-145) L Potassium Level 3.0 mmol/L (3.5-5.1) L Chloride Level 96 mmol/L (98-107) L Carbon Dioxide Level 32 mmol/L (21-32) Anion Gap 6 (6-14) Blood Urea Nitrogen 14 mg/dL (7-20) Creatinine 0.8 mg/dL (0.6-1.0) Estimated GFR (Cockcroft-Gault) 74.5 BUN/Creatinine Ratio 18 (6-20) Glucose Level 139 mg/dL (70-99) H Calcium Level 9.4 mg/dL (8.5-10.1) Magnesium Level 1.8 mg/dL (1.8-2.4) Total Bilirubin 0.3 mg/dL (0.2-1.0) Aspartate Amino Transferase (AST) 10 U/L (15-37) L Alanine Aminotransferase (ALT) 15 U/L (14-59) Alkaline Phosphatase 99 U/L (46-116) Creatine Kinase 40 U/L (26-192) Creatine Kinase MB (Mass) < 0.5 ng/mL (0.0-3.6) Creatine Kinase MB Relative Index % (0-4) Troponin I Quantitative < 0.017 ng/mL (0.000-0.055) UQ-Mzu-D-Type Natriuretic Peptide 130 pg/mL (0-124) H Total Protein 7.4 g/dL (6.4-8.2) Albumin 3.3 g/dL (3.4-5.0) L Albumin/Globulin Ratio 0.8 (1.0-1.7) L Lipase 107 U/L (73-393) Thyroid Stimulating Hormone (TSH) 0.921 uIU/mL (0.358-3.74) Influenza Type A Antigen Negative (NEGATIVE) Influenza Type B Antigen Negative (NEGATIVE) Urine Collection Type Void Urine Color Yellow Urine Clarity Clear Urine pH 6.0 Urine Specific [place] 1.025 Urine Protein Negative mg/dL (NEG-TRACE) Urine Glucose (UA) 100 mg/dL (NEG) Urine Ketones (Stick) Negative mg/dL (NEG) Urine Blood Negative (NEG) Urine Nitrite Negative (NEG) Urine Bilirubin Negative (NEG) Urine Urobilinogen Dipstick 1.0 mg/dL (0.2 mg/dL) Urine Leukocyte Esterase Negative (NEG) Urine RBC 0 /HPF (0-2) Urine WBC 1-4 /HPF (0-4) Urine Squamous Epithelial Cells Many /LPF Urine Bacteria Many /HPF (0-FEW) Urine Mucus Mod /LPF Urine Opiates Screen Pos (NEG) Urine Methadone Screen Neg (NEG) Urine Barbiturates Neg (NEG) Urine Phencyclidine Screen Neg (NEG) Urine Amphetamine/Methamphetamine Pos (NEG) Urine Benzodiazepines Screen Neg (NEG) Urine Cocaine Screen Neg (NEG) Urine Cannabinoids Screen Neg (NEG) Urine Ethyl Alcohol Neg (NEG) Laboratory Tests 06/16/17 09:08 Laboratory Tests 06/16/17 09:08 EKG EKG 09:[address] Carrington sinus tachycardia, heart rate 108, QRS interval 108 no STEMI. Radiology/Procedures Radiology/Procedures []PROCEDURE: PORTABLE CHEST 1V Single view chest History:chest pain An AP view of the chest is submitted. Comparison: 03/25/2017. Findings: There is no significant infiltrate, pleural effusion, or pneumothorax. The pericardial cardiac silhouette is within normal limits in size. Impression: There is no evidence of acute cardiopulmonary disease. DICTATED and SIGNED BY: AWAIS ENG MD DATE: 06/16/17 1005 CC: DOUG YATES APRN; NO PCP ~ Course & Med Decision Making Course & Med Decision Making Pertinent Labs and Imaging studies reviewed. (See chart for details) This is a 56-year-old female patient presenting to the ED today with generalized body pain for 3 days, cough for 1 month, and bilateral chest pain that began this morning. Patient was very restless on arrival to the ED morning and groaning about generalized pain. EKG noted for tachycardia with HR of 108 as documented on EKG tab. Chest x-ray interpreted by radiologist was negative for any acute findings, d-dimer was normal, CBC with non specific WBC of 13.0. CMP was noted for potassium of 3.0, patient was given 40 mEq of oral potassium replacement in the ED. Drug screen noted for meth and opiates. 10:[address] Zuñiga cardiology will follow-up with patient. 10:[address] Thomas who accepted patient for admission. Dragon Disclaimer Dragon Disclaimer This electronic medical record was generated, in whole or in part, using a voice recognition dictation system. Departure Departure Impression: Primary Impression: Chest pain Disposition: 09 ADMITTED INPATIENT Condition: STABLE Referrals: NO PCP (PCP) Problem Qualifiers Primary Impression: Chest pain Chest pain type: unspecified Qualified Codes: R07.9 - Chest pain, unspecified DOUG YATES APRN Jun 16, 2017 10:10
[2017-06-16 10:13] LABS: CKMB MASS < 0.5 ng/mL (0.0-3.6); CREATINE KINASE 40 U/L (26-192)
[2017-06-16] MEDS ORDERED: POTASSIUM CHLORIDE 20 MEQ TABLET.ER. PO ONE (10:15)
[2017-06-16 10:29] LABS: BILIRUBIN,URINE NEGATIVE (NEG); GLUCOSE,URINE 100 mg/dL (NEG); NITRITE,URINE NEGATIVE (NEG); PROTEIN,URINE NEGATIVE (NEG-TRACE)
[2017-06-16 10:33] LABS: BACTERIA,URINE MANY /HPF (0-FEW); SQUAMOUS EPITHELIAL CELL,UR MANY /LPF
[2017-06-16 10:34] LABS: RBC,URINE 0 /HPF (0-2)
[2017-06-16 10:35] LABS: BARBITURATES NEG (NEG); BENZODIAZEPINES NEG (NEG); CANNABINOIDS NEG (NEG); COCAINE NEG (NEG); METHADONE NEG (NEG); OPIATES POS (NEG); PHENCYCLIDINE NEG (NEG)
[2017-06-16] MEDS ORDERED: ONDANSETRON PF 4 MG/2 ML VIAL. IV PRN (10:45)
[2017-06-16] MEDS ORDERED: ACETAMINOPHEN 325 MG TABLET. PO PRN (10:45)
[2017-06-16] MEDS ORDERED: fentaNYL PF VIAL 100 MCG/2 ML VIAL IV PRN (10:45)
--- NOTE | 2017-06-16 11:28 | EKG ---
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
[2017-06-16 12:07] VITALS: BP 166/87
[2017-06-16] MEDS ORDERED: FLUT10.6 IH (12:07)
[2017-06-16] MEDS ORDERED: HYDR50TA6 PO (12:07)
[2017-06-16] MEDS ORDERED: CLOP75TA PO (12:07)
[2017-06-16] MEDS ORDERED: ATOR20TA58 PO (12:07)
[2017-06-16] MEDS ORDERED: CARV6.252 PO (12:07)
[2017-06-16] MEDS ORDERED: FLUT1DIS5 IH (12:07)
[2017-06-16] MEDS ORDERED: LISI-338 PO (12:07)
[2017-06-16] MEDS ORDERED: LABETALOL 20 MG/4 ML DISP.SYRIN. IVP PRN (12:30)
[2017-06-16] MEDS ORDERED: NICOTINE POLACRILEX 2MG GUM PACKAGE of 12. BC PRN (12:30)
[2017-06-16] MEDS: NICOTINE 21MG PATCH. TD SCH (13:00)
[2017-06-16] MEDS: BUDESONIDE 0.5 MG/2 ML NEBU. NEB SCH ×2 (13:00→18:02)
[2017-06-16] MEDS ORDERED: traMADol 50 MG TABLET PO PRN (13:15)
--- NOTE | 2017-06-16 13:17 | PDOC1 ---
History and Physical Date of Admission Date of Admission DATE: 06/16/17 TIME: 13:07 Identification/Chief Complaint Chief Complaint chest hurts Rt shoulder pain, bilateral knee pain Problems: Source Source: Caregiver, Chart review, Patient History of Present Illness History of Present Illness 56 y.o female hx stents on eliquis and claims compliance admitted by midlevel provider from ER for CP r.o ACS. BUt chest pain is PURELy MSK, She hurts on bilateral knees, limited flexion, by my passive attempt to move RT arm and elevate above head her chest hurts and rt shoulder hurts and whole body hurts and she winces in pain, She just had fentanyl and is drowsy claims took tylenol at home. CXR is ok, She just had an LHC mar 2017 and was clean. CARds has seen, no further cardiac work up She initially denies smoking to me but when I told her I smelled the cigarettes she admits to less than a pack a day Past Medical History Cardiovascular: CAD, CHF, HTN, Other Pulmonary: COPD CENTRAL NERVOUS SYSTEM: Other GI: GERD Heme/Onc: No pertinent hx Hepatobiliary: No pertinent hx Psych: No pertinent hx Musculoskeletal: Osteoarthritis Rheumatologic: No pertinent hx Infectious disease: No pertinent hx Renal/: No pertinent hx Endocrine: No pertinent hx Past Surgical History Past Surgical History: Hysterectomy, Other Family History Family History: Coronary Artery Disease, Heart Disease Social History Smoke: <1 pack per day ALCOHOL: none Drugs: None Current Problem List Problem List Problems Medical Problems: (1) Chest pain Status: Acute Problems: Current Medications Current Medications Current Medications Fentanyl Citrate (Fentanyl 2ml Vial) 50 mcg 1X ONCE IV Last administered on 09:35; Start 06/16/17 at 09:30; Stop 06/16/17 at 09:31; Status DC Potassium Chloride (Klor-Con) 40 meq 1X ONCE PO Last administered on 10:33; Start 06/16/17 at 10:15; Stop 06/16/17 at 10:16; Status DC Ondansetron HCl (Zofran) 4 mg PRN Q8HRS PRN IV NAUSEA/VOMITING Last administered on 06/16/17 10:59; Start 06/16/17 at 10:45; Stop 06/17/17 at 10 :44 Fentanyl Citrate (Fentanyl 2ml Vial) 50 mcg PRN Q2HR PRN IV PAIN Last administered on 06/16/17t 10:59; Start 06/16/17 at 10:45; Stop 06/17/17 at 10 :44 Acetaminophen (Tylenol) 650 mg PRN Q4HRS PRN PO FEVER; Start 06/16/17 at 10:45 ; Stop 06/17/17 at 10:44 Labetalol HCl (Normodyne) 10 mg PRN Q2HR PRN IVP HYPERTENSION, SEE COMMENTS; Start 06/16/17 at 12:30 Aspirin (Rey Aspirin) 325 mg DAILY PO ; Start 06/16/17 at 13:00 Atorvastatin Calcium (Lipitor) 40 mg QHS PO ; Start 06/16/17 at 21:00 Carvedilol (Coreg) 6.25 mg BIDWMEALS PO ; Start 06/16/17 at 17:00 Clopidogrel Bisulfate (Plavix) 75 mg DAILY PO ; Start 06/16/17 at 13:00 Furosemide (Lasix) 40 mg DAILY PO ; Start 06/16/17 at 13:00 Lisinopril (Prinivil) 5 mg HS PO ; Start 06/16/17 at 21:00 Nicotine (Nicoderm Cq 21mg) 1 patch DAILY TD ; Start 06/16/17 at 13:00 Nicotine Polacrilex (Nicorette Gum) 1 each PRN Q2HRS PRN BC SMOKING CESSATION; Start 06/16/17 at 12:30 Prasugrel (Effient) 10 mg DAILY PO ; Start 06/17/17 at 09:00; Status UNV Non-Formulary Medication 2 puff BID IH ; Start 06/16/17 at 21:00; Status UNV Non-Formulary Medication 1 puff BID IH ; Start 06/16/17 at 21:00; Status UNV Hydrochlorothiazide (Hydrodiuril) 50 mg DAILY PO ; Start 06/16/17 at 13:00 Albuterol Sulfate (Ventolin Neb Soln) 2.5 mg RTQID NEB ; Start 06/16/17 at 13: 00 Budesonide (Pulmicort) 0.5 mg RTBID NEB ; Start 06/16/17 at 13:00 Active Scripts Active Carvedilol 6.25 Mg Tablet 6.25 Mg PO BIDWMEALS SIG: ONE P.O. BID Atorvastatin Calcium 40 Mg Tablet 40 Mg PO QHS SIG: ONE P.O. AT BEDTIME Lisinopril 2.5 Mg Tablet 2.5 Mg PO QHS SIG: ONE P.O. AT BEDTIME Furosemide 40 Mg Tablet 40 Mg PO DAILY SIG: ONE DAILY Reported Hydrochlorothiazide Tablet (Hydrochlorothiazide) 50 Mg Tablet 1 Tab PO DAILY Carvedilol 6.25 Mg Tablet 1 Tab PO BID Lisinopril 5 Mg Tablet 1 Tab PO HS Clopidogrel (Clopidogrel Bisulfate) 75 Mg Tablet 1 Tab PO DAILY Atorvastatin Calcium 20 Mg Tablet 20 Mg PO HS Advair 500-50 Diskus (Fluticasone/Salmeterol) 1 Each Disk.w.dev 1 Puff IH BID Flovent 44MCG Hfa (Fluticasone Propionate) 10.6 Gm Aer.w.adap 2 Puff IH BID Effient (Prasugrel Hcl) 10 Mg Tablet 10 Mg PO DAILY Aspirin 325 Mg Tablet 1 Tab PO DAILY NICODERM CQ 21mg (Nicotine) 1 Each Patch.td24 1 Patch TP DAILY Nicorette (Nicotine Polacrilex) 2 Mg Gum 2 Mg BC PRN Q2HRS PRN Allergies Allergies: Coded Allergies: codeine (Verified Allergy, Severe, Anaphylaxis, LORTAB OK, 03/26/17) ketorolac (Verified Allergy, Severe, Anaphylaxis, 08/04/14) diphenhydramine (Verified Allergy, Intermediate, Hives, 06/19/16) ROS Review of System MSK pain everywhere, no weight issues, no thermoreg issues Physical Exam General: No acute distress, Other (sleepy NAD) HEENT: Atraumatic, PERRLA, EOMI, Mucous membr. moist/pink Lungs: Clear to auscultation, Normal air movement Heart: S1S2, RRR, no thrills, no rubs, no gallops, no murmurs Cardiovascular: S1, S2 Breasts: Normal, Rt breast nml w/o mass, Lt breast nml w/o mass, Nipples normal Abdomen: Normal bowel sounds, Soft, No tenderness, No hepatosplenomegaly, No masses Rectal Exam: not examined PELVIC: Nml ext genitalia Extremities: No clubbing, No cyanosis, No edema, Normal pulses, No tenderness/ swelling Skin: No rashes, No breakdown, No significant lesion Neuro: Normal gait, Normal speech, Strength at 5/5 X4 ext, Normal tone, Sensation intact, Cranial nerves 3-12 NL, Reflexes 2+ Psych/Mental Status: Mental status NL, Mood NL Vitals Vitals Vital Signs Date Time Temp Pulse Resp B/P (MAP) Pulse Ox O2 Delivery O2 Flow Rate FiO2 06/16/17 12:45 Nasal Cannula 2.0 06/16/17 12:07 98.8 105 22 166/87 (113) 99 98.8 Labs Labs Laboratory Tests Test 06/16/17 09:08 06/16/17 09:37 06/16/17 10:17 White Blood Count 13.0 x10^3/uL (4.0-11.0) Red Blood Count 4.51 x10^6/uL (3.50-5.40) Hemoglobin 12.8 g/dL (12.0-15.5) Hematocrit 39.0 % (36.0-47.0) Mean Corpuscular Volume 86 fL (79-100) Mean Corpuscular Hemoglobin 28 pg (25-35) Mean Corpuscular Hemoglobin Concent 33 g/dL (31-37) Red Cell Distribution Width 13.9 % (11.5-14.5) Platelet Count 242 x10^3/uL (140-400) Neutrophils (%) (Auto) 78 % (31-73) Lymphocytes (%) (Auto) 15 % (24-48) Monocytes (%) (Auto) 6 % (0-9) Eosinophils (%) (Auto) 2 % (0-3) Basophils (%) (Auto) 0 % (0-3) Neutrophils # (Auto) 10.1 x10^3uL (1.8-7.7) Lymphocytes # (Auto) 1.9 x10^3/uL (1.0-4.8) Monocytes # (Auto) 0.7 x10^3/uL (0.0-1.1) Eosinophils # (Auto) 0.2 x10^3/uL (0.0-0.7) Basophils # (Auto) 0.0 x10^3/uL (0.0-0.2) Prothrombin Time 12.6 SEC (11.7-14.0) Prothromb Time International Ratio 1.0 (0.8-1.1) D-Dimer (Lucille) 0.46 ug/mlFEU (0.00-0.50) Sodium Level 134 mmol/L (136-145) Potassium Level 3.0 mmol/L (3.5-5.1) Chloride Level 96 mmol/L (98-107) Carbon Dioxide Level 32 mmol/L (21-32) Anion Gap 6 (6-14) Blood Urea Nitrogen 14 mg/dL (7-20) Creatinine 0.8 mg/dL (0.6-1.0) Estimated GFR (Cockcroft-Gault) 74.5 BUN/Creatinine Ratio 18 (6-20) Glucose Level 139 mg/dL (70-99) Calcium Level 9.4 mg/dL (8.5-10.1) Magnesium Level 1.8 mg/dL (1.8-2.4) Total Bilirubin 0.3 mg/dL (0.2-1.0) Aspartate Amino Transf (AST/SGOT) 10 U/L (15-37) Alanine Aminotransferase (ALT/SGPT) 15 U/L (14-59) Alkaline Phosphatase 99 U/L (46-116) Creatine Kinase 40 U/L (26-192) Creatine Kinase MB (Mass) < 0.5 ng/mL (0.0-3.6) Creatine Kinase MB Relative Index % (0-4) Troponin I Quantitative < 0.017 ng/mL (0.000-0.055) KT-Zpt-V-Type Natriuretic Peptide 130 pg/mL (0-124) Total Protein 7.4 g/dL (6.4-8.2) Albumin 3.3 g/dL (3.4-5.0) Albumin/Globulin Ratio 0.8 (1.0-1.7) Lipase 107 U/L (73-393) Thyroid Stimulating Hormone (TSH) 0.921 uIU/mL (0.358-3.74) Influenza Type A Antigen Negative (NEGATIVE) Influenza Type B Antigen Negative (NEGATIVE) Urine Collection Type Void Urine Color Yellow Urine Clarity Clear Urine pH 6.0 Urine Specific [place] 1.025 Urine Protein Negative mg/dL (NEG-TRACE) Urine Glucose (UA) 100 mg/dL (NEG) Urine Ketones (Stick) Negative mg/dL (NEG) Urine Blood Negative (NEG) Urine Nitrite Negative (NEG) Urine Bilirubin Negative (NEG) Urine Urobilinogen Dipstick 1.0 mg/dL (0.2 mg/dL) Urine Leukocyte Esterase Negative (NEG) Urine RBC 0 /HPF (0-2) Urine WBC 1-4 /HPF (0-4) Urine Squamous Epithelial Cells Many /LPF Urine Bacteria Many /HPF (0-FEW) Urine Mucus Mod /LPF Urine Opiates Screen Pos (NEG) Urine Methadone Screen Neg (NEG) Urine Barbiturates Neg (NEG) Urine Phencyclidine Screen Neg (NEG) Urine Amphetamine/Methamphetamine Pos (NEG) Urine Benzodiazepines Screen Neg (NEG) Urine Cocaine Screen Neg (NEG) Urine Cannabinoids Screen Neg (NEG) Urine Ethyl Alcohol Neg (NEG) Laboratory Tests Test 06/16/17 09:08 06/16/17 09:37 06/16/17 10:17 White Blood Count 13.0 x10^3/uL (4.0-11.0) Red Blood Count 4.51 x10^6/uL (3.50-5.40) Hemoglobin 12.8 g/dL (12.0-15.5) Hematocrit 39.0 % (36.0-47.0) Mean Corpuscular Volume 86 fL (79-100) Mean Corpuscular Hemoglobin 28 pg (25-35) Mean Corpuscular Hemoglobin Concent 33 g/dL (31-37) Red Cell Distribution Width 13.9 % (11.5-14.5) Platelet Count 242 x10^3/uL (140-400) Neutrophils (%) (Auto) 78 % (31-73) Lymphocytes (%) (Auto) 15 % (24-48) Monocytes (%) (Auto) 6 % (0-9) Eosinophils (%) (Auto) 2 % (0-3) Basophils (%) (Auto) 0 % (0-3) Neutrophils # (Auto) 10.1 x10^3uL (1.8-7.7) Lymphocytes # (Auto) 1.9 x10^3/uL (1.0-4.8) Monocytes # (Auto) 0.7 x10^3/uL (0.0-1.1) Eosinophils # (Auto) 0.2 x10^3/uL (0.0-0.7) Basophils # (Auto) 0.0 x10^3/uL (0.0-0.2) Prothrombin Time 12.6 SEC (11.7-14.0) Prothromb Time International Ratio 1.0 (0.8-1.1) D-Dimer (Lucille) 0.46 ug/mlFEU (0.00-0.50) Sodium Level 134 mmol/L (136-145) Potassium Level 3.0 mmol/L (3.5-5.1) Chloride Level 96 mmol/L (98-107) Carbon Dioxide Level 32 mmol/L (21-32) Anion Gap 6 (6-14) Blood Urea Nitrogen 14 mg/dL (7-20) Creatinine 0.8 mg/dL (0.6-1.0) Estimated GFR (Cockcroft-Gault) 74.5 BUN/Creatinine Ratio 18 (6-20) Glucose Level 139 mg/dL (70-99) Calcium Level 9.4 mg/dL (8.5-10.1) Magnesium Level 1.8 mg/dL (1.8-2.4) Total Bilirubin 0.3 mg/dL (0.2-1.0) Aspartate Amino Transf (AST/SGOT) 10 U/L (15-37) Alanine Aminotransferase (ALT/SGPT) 15 U/L (14-59) Alkaline Phosphatase 99 U/L (46-116) Creatine Kinase 40 U/L (26-192) Creatine Kinase MB (Mass) < 0.5 ng/mL (0.0-3.6) Creatine Kinase MB Relative Index % (0-4) Troponin I Quantitative < 0.017 ng/mL (0.000-0.055) RM-Vui-[id number]-Type Natriuretic Peptide 130 pg/mL (0-124) Total Protein 7.4 g/dL (6.4-8.2) Albumin 3.3 g/dL (3.4-5.0) Albumin/Globulin Ratio 0.8 (1.0-1.7) Lipase 107 U/L (73-393) Thyroid Stimulating Hormone (TSH) 0.921 uIU/mL (0.358-3.74) Influenza Type A Antigen Negative (NEGATIVE) Influenza Type B Antigen Negative (NEGATIVE) Urine Collection Type Void Urine Color Yellow Urine Clarity Clear Urine pH 6.0 Urine Specific [place] 1.025 Urine Protein Negative mg/dL (NEG-TRACE) Urine Glucose (UA) 100 mg/dL (NEG) Urine Ketones (Stick) Negative mg/dL (NEG) Urine Blood Negative (NEG) Urine Nitrite Negative (NEG) Urine Bilirubin Negative (NEG) Urine Urobilinogen Dipstick 1.0 mg/dL (0.2 mg/dL) Urine Leukocyte Esterase Negative (NEG) Urine RBC 0 /HPF (0-2) Urine WBC 1-4 /HPF (0-4) Urine Squamous Epithelial Cells Many /LPF Urine Bacteria Many /HPF (0-FEW) Urine Mucus Mod /LPF Urine Opiates Screen Pos (NEG) Urine Methadone Screen Neg (NEG) Urine Barbiturates Neg (NEG) Urine Phencyclidine Screen Neg (NEG) Urine Amphetamine/Methamphetamine Pos (NEG) Urine Benzodiazepines Screen Neg (NEG) Urine Cocaine Screen Neg (NEG) Urine Cannabinoids Screen Neg (NEG) Urine Ethyl Alcohol Neg (NEG) VTE Prophylaxis Ordered VTE Prophylaxis Devices: Yes VTE Pharmacological Prophylaxi: Yes Assessment/Plan Assessment/Plan 1. Chest Pain MSK - LHC in mar 2017 clean - no further cardiac work up per cards 2. Bilateral knee pain,RT shoulder pain 3, Obesity NOS 4. HTN, 5. Smoker plan: Transfer out of cardiac floor Physiatry consult Check bilateral knee xrays Check RT shoulder xray Check tsh PT.OT Resume home emds NSAIDs Start mobic RTC QD\ Start capsaicin cream WOF oversedation with narcs - she is already sleepy Dw RN ANNETTE LINDER MD Jun 16, 2017 13:17
[2017-06-16] MEDS: FUROSEMIDE 40 MG TABLET. PO SCH (13:30)
[2017-06-16] MEDS: ASPIRIN 325 MG TABLET PO SCH (13:30)
[2017-06-16] MEDS: hydroCHLOROthiazide 25 MG TABLET PO SCH (13:30)
[2017-06-16] MEDS: CLOPIDOGREL BISULFATE 75 MG TABLET PO SCH (13:30)
[2017-06-16] MEDS: HYDROcodone/APAP 5/325MG 1 TAB TABLET PO PRN (14:08)
[2017-06-16 15:00] VITALS: BP 132/82
[2017-06-16] MEDS: ALBUTEROL SULFATE 2.5 MG/3 ML NEBU. NEB SCH ×3 (15:13→18:02)
[2017-06-16] MEDS: CAPSAICIN 0.025% TOPICAL CREAM 60GM TUBE. TP SCH ×2 (16:15→21:25)
[2017-06-16] MEDS: CARVEDILOL 6.25 MG TABLET. PO SCH (16:15)
[2017-06-16] MEDS: MELOXICAM 7.5 MG TABLET PO SCH (16:16)
[2017-06-16] MEDS: KETOROLAC 15 MG/ML VIAL. IV PRN (17:46)
[2017-06-16] MEDS: fentaNYL PF VIAL 100 MCG/2 ML VIAL IV PRN ×2 (18:29→22:17)
[2017-06-16 19:27] VITALS: BP 133/69
--- NOTE | 2017-06-16 20:21 | RAD ---
EXAM: Bilateral knees, 3 views. HISTORY: Pain. COMPARISON: None. FINDINGS: Frontal, lateral and oblique views of both knees are obtained. There is mild bilateral medial compartment joint space narrowing and left greater than right medial compartment predominant tricompartmental spurring. There is no fracture, dislocation or subluxation. There are small bilateral joint effusions. IMPRESSION: 1. Mild left greater than right medial compartment predominant tricompartmental osteoarthritis. 2. Suspected small joint effusions. Electronically signed by: Genoveva Zacarias MD (06/16/2017 8:18 PM) [facility] [place]
[2017-06-16] MEDS ORDERED: NON FORMULARY ITEM (Fluticasone/Salmeterol (Advair 500-50 Diskus) 1 PUFF) IH SCH (21:00)
[2017-06-16] MEDS ORDERED: NON FORMULARY ITEM (Fluticasone Propionate (Flovent 44MCG Hfa) 2 PUFF) IH SCH (21:00)
[2017-06-16] MEDS: LISINOPRIL 5 MG TABLET. PO SCH (21:25)
[2017-06-16] MEDS: ATORVASTATIN CALCIUM 40 MG TABLET. PO SCH (21:25)
[2017-06-16 22:15] VITALS: BP 130/68
[2017-06-17] VITALS (8 sets, daily range): BP systolic 83–131; BP diastolic 40–66
[2017-06-17] MEDS: fentaNYL PF VIAL 100 MCG/2 ML VIAL IV PRN ×4 (02:28→18:26)
[2017-06-17] MEDS: ALBUTEROL SULFATE 2.5 MG/3 ML NEBU. NEB SCH ×4 (08:00→19:54)
[2017-06-17] MEDS: BUDESONIDE 0.5 MG/2 ML NEBU. NEB SCH ×2 (08:00→19:54)
--- NOTE | 2017-06-17 08:41 | RAD ---
SHOULDER 2+V RIGHT History:Pain, no known injury Comparison: None Findings:3 views of the right shoulder are submitted. No acute fracture or dislocation is identified. There is degenerative change of the acromioclavicular joint. Impression: 1.No acute abnormality is identified.
[2017-06-17] MEDS ORDERED: PRASUGREL 10 MG TABLET. PO SCH (09:00)
[2017-06-17] MEDS: NICOTINE 21MG PATCH. TD SCH (09:00)
[2017-06-17] MEDS: ASPIRIN 325 MG TABLET PO SCH (09:04)
[2017-06-17] MEDS: MELOXICAM 7.5 MG TABLET PO SCH (09:05)
[2017-06-17] MEDS: CARVEDILOL 6.25 MG TABLET. PO SCH ×2 (09:05→17:51)
[2017-06-17] MEDS: hydroCHLOROthiazide 25 MG TABLET PO SCH (09:05)
[2017-06-17] MEDS: FUROSEMIDE 40 MG TABLET. PO SCH (09:05)
[2017-06-17] MEDS: CAPSAICIN 0.025% TOPICAL CREAM 60GM TUBE. TP SCH ×3 (09:09→20:53)
[2017-06-17] MEDS: CLOPIDOGREL BISULFATE 75 MG TABLET PO SCH (09:09)
[2017-06-17] MEDS: KETOROLAC 15 MG/ML VIAL. IV PRN ×2 (13:31→20:59)
--- NOTE | 2017-06-17 15:00 | PDOC ---
PROGRESS NOTES Chief Complaint Chief Complaint Chest pain B/l knee pain CAD CHF HTN COPD Osteoporosis GERD History of Present Illness History of Present Illness Pt. seen and examined at the bedside Pt sitting upright in bed wearing hospital gown pt c/o productive cough, pain in her right shoulder and b/l knees She notes she has not had a BM in 3days Vitals Vitals Vital Signs Date Time Temp Pulse Resp B/P (MAP) Pulse Ox O2 Delivery O2 Flow Rate FiO2 06/17/17 12:15 93 Nasal Cannula 2.0 06/17/17 11:00 97.9 93 20 126/ 97.9 Physical Exam General: Alert, Oriented X3, Cooperative, Other Heart: Normal S1, Normal S2 Lungs: Wheezing Abdomen: Normal bowel sounds, Soft Extremities: No clubbing, No cyanosis, Normal pulses Skin: No rashes, No breakdown, No significant lesion Review of Systems Review of Systems HEENT: Denies sore throat RESP: Denies shortness of air GI: Denies n/v/d MSK: Admits to weakness, joint pain Assessment and Plan Assessmemt and Plan Problems Medical Problems: (1) Chest pain Status: Acute Assessment Chest pain B/l knee pain CAD CHF HTN COPD Osteoporosis GERD Plan Rocephin 1g qday ordered Consult Cardiology Consult PT/OT Continue home medications Recheck labs in am Problems: Comment Review of Relevant I have reviewed the following items harjeet (where applicable) has been applied. Labs Laboratory Tests Test 06/16/17 09:08 06/16/17 09:37 06/16/17 10:17 White Blood Count 13.0 x10^3/uL (4.0-11.0) Red Blood Count 4.51 x10^6/uL (3.50-5.40) Hemoglobin 12.8 g/dL (12.0-15.5) Hematocrit 39.0 % (36.0-47.0) Mean Corpuscular Volume 86 fL (79-100) Mean Corpuscular Hemoglobin 28 pg (25-35) Mean Corpuscular Hemoglobin Concent 33 g/dL (31-37) Red Cell Distribution Width 13.9 % (11.5-14.5) Platelet Count 242 x10^3/uL (140-400) Neutrophils (%) (Auto) 78 % (31-73) Lymphocytes (%) (Auto) 15 % (24-48) Monocytes (%) (Auto) 6 % (0-9) Eosinophils (%) (Auto) 2 % (0-3) Basophils (%) (Auto) 0 % (0-3) Neutrophils # (Auto) 10.1 x10^3uL (1.8-7.7) Lymphocytes # (Auto) 1.9 x10^3/uL (1.0-4.8) Monocytes # (Auto) 0.7 x10^3/uL (0.0-1.1) Eosinophils # (Auto) 0.2 x10^3/uL (0.0-0.7) Basophils # (Auto) 0.0 x10^3/uL (0.0-0.2) Prothrombin Time 12.6 SEC (11.7-14.0) Prothromb Time International Ratio 1.0 (0.8-1.1) D-Dimer (Lucille) 0.46 ug/mlFEU (0.00-0.50) Sodium Level 134 mmol/L (136-145) Potassium Level 3.0 mmol/L (3.5-5.1) Chloride Level 96 mmol/L (98-107) Carbon Dioxide Level 32 mmol/L (21-32) Anion Gap 6 (6-14) Blood Urea Nitrogen 14 mg/dL (7-20) Creatinine 0.8 mg/dL (0.6-1.0) Estimated GFR (Cockcroft-Gault) 74.5 BUN/Creatinine Ratio 18 (6-20) Glucose Level 139 mg/dL (70-99) Calcium Level 9.4 mg/dL (8.5-10.1) Magnesium Level 1.8 mg/dL (1.8-2.4) Total Bilirubin 0.3 mg/dL (0.2-1.0) Aspartate Amino Transf (AST/SGOT) 10 U/L (15-37) Alanine Aminotransferase (ALT/SGPT) 15 U/L (14-59) Alkaline Phosphatase 99 U/L (46-116) Creatine Kinase 40 U/L (26-192) Creatine Kinase MB (Mass) < 0.5 ng/mL (0.0-3.6) Creatine Kinase MB Relative Index % (0-4) Troponin I Quantitative < 0.017 ng/mL (0.000-0.055) IB-Ayb-Q-Type Natriuretic Peptide 130 pg/mL (0-124) Total Protein 7.4 g/dL (6.4-8.2) Albumin 3.3 g/dL (3.4-5.0) Albumin/Globulin Ratio 0.8 (1.0-1.7) Lipase 107 U/L (73-393) Thyroid Stimulating Hormone (TSH) 0.921 uIU/mL (0.358-3.74) Influenza Type A Antigen Negative (NEGATIVE) Influenza Type B Antigen Negative (NEGATIVE) Urine Collection Type Void Urine Color Yellow Urine Clarity Clear Urine pH 6.0 Urine Specific [place] 1.025 Urine Protein Negative mg/dL (NEG-TRACE) Urine Glucose (UA) 100 mg/dL (NEG) Urine Ketones (Stick) Negative mg/dL (NEG) Urine Blood Negative (NEG) Urine Nitrite Negative (NEG) Urine Bilirubin Negative (NEG) Urine Urobilinogen Dipstick 1.0 mg/dL (0.2 mg/dL) Urine Leukocyte Esterase Negative (NEG) Urine RBC 0 /HPF (0-2) Urine WBC 1-4 /HPF (0-4) Urine Squamous Epithelial Cells Many /LPF Urine Bacteria Many /HPF (0-FEW) Urine Mucus Mod /LPF Urine Opiates Screen Pos (NEG) Urine Methadone Screen Neg (NEG) Urine Barbiturates Neg (NEG) Urine Phencyclidine Screen Neg (NEG) Urine Amphetamine/Methamphetamine Pos (NEG) Urine Benzodiazepines Screen Neg (NEG) Urine Cocaine Screen Neg (NEG) Urine Cannabinoids Screen Neg (NEG) Urine Ethyl Alcohol Neg (NEG) Medications Current Medications Fentanyl Citrate (Fentanyl 2ml Vial) 50 mcg 1X ONCE IV Last administered on 09:35; Start 06/16/17 at 09:30; Stop 06/16/17 at 09:31; Status DC Potassium Chloride (Klor-Con) 40 meq 1X ONCE PO Last administered on 10:33; Start 06/16/17 at 10:15; Stop 06/16/17 at 10:16; Status DC Ondansetron HCl (Zofran) 4 mg PRN Q8HRS PRN IV NAUSEA/VOMITING Last administered on 06/16/17 10:59; Start 06/16/17 at 10:45; Stop 06/17/17 at 10 :44; Status DC Fentanyl Citrate (Fentanyl 2ml Vial) 50 mcg PRN Q2HR PRN IV PAIN Last administered on 06/16/17 10:59; Start 06/16/17 at 10:45; Stop 06/16/17 at 13 :07; Status DC Acetaminophen (Tylenol) 650 mg PRN Q4HRS PRN PO FEVER; Start 06/16/17 at 10:45 ; Stop 06/17/17 at 10:44; Status DC Labetalol HCl (Normodyne) 10 mg PRN Q2HR PRN IVP HYPERTENSION, SEE COMMENTS; Start 06/16/17 at 12:30 Aspirin (Rey Aspirin) 325 mg DAILY PO Last administered on 06/17/17 09:04; Start 06/16/17 at 13:00 Atorvastatin Calcium (Lipitor) 40 mg QHS PO Last administered on 06/16/17 21: 25; Start 06/16/17 at 21:00 Carvedilol (Coreg) 6.25 mg BIDWMEALS PO Last administered on 06/17/17 09:05; Start 06/16/17 at 17:00 Clopidogrel Bisulfate (Plavix) 75 mg DAILY PO Last administered on 06/17/17 09:09; Start 06/16/17 at 13:00 Furosemide (Lasix) 40 mg DAILY PO Last administered on 06/17/17 09:05; Start 06/16/17 at 13:00 Lisinopril (Prinivil) 5 mg HS PO Last administered on 06/16/17 21:25; Start 06/16/17 at 21:00 Nicotine (Nicoderm Cq 21mg) 1 patch DAILY TD ; Start 06/16/17 at 13:00 Nicotine Polacrilex (Nicorette Gum) 1 each PRN Q2HRS PRN BC SMOKING CESSATION; Start 06/16/17 at 12:30 Prasugrel (Effient) 10 mg DAILY PO ; Start 06/17/17 at 09:00; Status UNV Non-Formulary Medication 2 puff BID IH ; Start 06/16/17 at 21:00; Status UNV Non-Formulary Medication 1 puff BID IH ; Start 06/16/17 at 21:00; Status UNV Hydrochlorothiazide (Hydrodiuril) 50 mg DAILY PO Last administered on 09:05; Start 06/16/17 at 13:00 Albuterol Sulfate (Ventolin Neb Soln) 2.5 mg RTQID NEB Last administered on 12:12; Start 06/16/17 at 13:00 Budesonide (Pulmicort) 0.5 mg RTBID NEB Last administered on 06/16/17 18:02; Start 06/16/17 at 13:00 Ketorolac Tromethamine (Toradol) 15 mg PRN Q6HRS PRN IV PAIN Last administered on 06/17/17 13:31; Start 06/16/17 at 14:00; Stop 06/21/17 at 13:59 Meloxicam (Mobic) 15 mg DAILY PO Last administered on 06/17/17 09:05; Start 06/16/17 at 14:00 Capsaicin (Zostrix) 1 smooth TID TP Last administered on 06/17/17 09:09; Start 06/16/17 at 14:00 Tramadol HCl (Ultram) 50 mg PRN Q6HRS PRN PO PAIN; Start 06/16/17 at 13:15; Stop 06/16/17 at 13:41; Status DC Acetaminophen/ Hydrocodone Bitart (Lortab 5/325) 1 tab PRN Q6HRS PRN PO PAIN Last administered on 06/16/17 14:08; Start 06/16/17 at 13:45 Fentanyl Citrate (Fentanyl 2ml Vial) 25 mcg PRN Q2HR PRN IV PAIN Last administered on 06/17/17 10:03; Start 06/16/17 at 18:15 Active Scripts Active Carvedilol 6.25 Mg Tablet 6.25 Mg PO BIDWMEALS SIG: ONE P.O. BID Atorvastatin Calcium 40 Mg Tablet 40 Mg PO QHS SIG: ONE P.O. AT BEDTIME Lisinopril 2.5 Mg Tablet 2.5 Mg PO QHS SIG: ONE P.O. AT BEDTIME Furosemide 40 Mg Tablet 40 Mg PO DAILY SIG: ONE DAILY Reported Hydrochlorothiazide Tablet (Hydrochlorothiazide) 50 Mg Tablet 1 Tab PO DAILY Carvedilol 6.25 Mg Tablet 1 Tab PO BID Lisinopril 5 Mg Tablet 1 Tab PO HS Clopidogrel (Clopidogrel Bisulfate) 75 Mg Tablet 1 Tab PO DAILY Atorvastatin Calcium 20 Mg Tablet 20 Mg PO HS Advair 500-50 Diskus (Fluticasone/Salmeterol) 1 Each Disk.w.dev 1 Puff IH BID Flovent 44MCG Hfa (Fluticasone Propionate) 10.6 Gm Aer.w.adap 2 Puff IH BID Effient (Prasugrel Hcl) 10 Mg Tablet 10 Mg PO DAILY Aspirin 325 Mg Tablet 1 Tab PO DAILY NICODERM CQ 21mg (Nicotine) 1 Each Patch.td24 1 Patch TP DAILY Nicorette (Nicotine Polacrilex) 2 Mg Gum 2 Mg BC PRN Q2HRS PRN Vitals/I & O Vital Sign - Last 24 Hours 06/16/17 06/16/17 06/16/17 06/16/17 15:00 15:10 15:13 16:15 Temp 98.1 98.1 Pulse 106 105 Resp 20 18 B/P (MAP) 132/82 (99) 143/71 Pulse Ox 97 99 99 O2 Delivery Nasal Cannula Nasal Cannula Nasal Cannula O2 Flow Rate 3.0 2.0 2.0 06/16/17 06/16/17 06/16/17 06/16/17 18:02 18:29 19:27 20:00 Temp 98.9 98.9 Pulse 98 Resp 18 16 B/P (MAP) 133/69 (90) Pulse Ox 100 100 97 O2 Delivery Nasal Cannula Nasal Cannula Nasal Cannula Nasal Cannula O2 Flow Rate 2.0 2.0 2.0 2.0 06/16/17 06/16/17 06/16/17 06/17/17 21:25 22:15 22:17 02:00 Temp 98.7 98.4 98.7 98.4 Pulse 98 100 96 Resp 18 20 16 B/P (MAP) 133/69 130/68 (88) 131/66 (87) Pulse Ox 97 98 O2 Delivery Nasal Cannula Nasal Cannula Nasal Cannula O2 Flow Rate 2.0 2.0 2.0 06/17/17 06/17/17 06/17/17 06/17/17 02:28 06:45 07:24 07:52 Temp 98.4 98.4 Pulse 85 Resp 24 20 16 B/P (MAP) 93/40 (57) Pulse Ox 98 O2 Delivery Nasal Cannula Nasal Cannula Nasal Cannula Nasal Cannula O2 Flow Rate 2.0 2.0 2.0 2.0 06/17/17 06/17/17 06/17/1706/17/17 09:05 10:03 10:35 11:00 Temp 97.9 97.9 Pulse 105 93 Resp 18 18 20 B/P (MAP) 122/66 126/ Pulse Ox 98 98 94 O2 Delivery Nasal Cannula Nasal Cannula Nasal Cannula O2 Flow Rate 2.0 2.0 2.0 06/17/17 12:15 Pulse Ox 93 O2 Delivery Nasal Cannula O2 Flow Rate 2.0 Intake and Output 06/16/17 06/16/17 06/17/17 15:00 23:00 07:00 Intake Total 750 ml 300 ml Balance 750 ml 300 ml ALIREZA GUERRERO III DO Jun 17, 2017 14:59
[2017-06-17] MEDS ORDERED: cefTRIAXone IM 1 GM VIAL IM SCH (17:00)
[2017-06-17] MEDS: cefTRIAXone IV Push 1 GM VIAL. IVP SCH (17:52)
--- NOTE | 2017-06-17 20:18 | PDOC2 ---
CARDIOLOGY CONSULT NOTE CHEIF COMPLAINT: Late entry for 06/16/2017 Chest pain Problems: HPI: 56 y.o woman well known to our service presenting with non-cardiac chest pain. She has pain and tenderness of chest with palpitation. Denies any exertional angina. She had recent cath two months ago which was unremarkable for new obstructive disease. Reports compliance with meds. No syncope or palpitations. No orthopnea, pnd or LE edema. PMHX: CAD HTN DLP Tobacco abuse COPD SOCHX: +tob. no illicits. FAMHX: NC CURRENT MEDS: Current Medications Medications (Trade) Dose Ordered Sig/Mary Start Time Stop Time Status Last Admin Dose Admin Acetaminophen (Tylenol) 650 mg PRN Q4HRS PRN 06/16/17 10:45 06/17/17 10:44 DC Acetaminophen/ Hydrocodone Bitart (Lortab 5/325) 1 tab PRN Q6HRS PRN 06/16/17 13:45 06/16/17 14:08 1 TAB Albuterol Sulfate (Ventolin Neb Soln) 2.5 mg RTQID 06/16/17 13:00 06/17/17 19:54 2.5 MG Aspirin (Rey Aspirin) 325 mg DAILY 06/16/17 13:00 06/17/17 09:04 325 MG Atorvastatin Calcium (Lipitor) 40 mg QHS 06/16/17 21:00 06/16/17 21:25 40 MG Budesonide (Pulmicort) 0.5 mg RTBID 06/16/17 13:00 06/17/17 19:54 0.5 MG Capsaicin (Zostrix) 1 smooth TID 06/16/17 14:00 06/17/17 15:21 1 SMOOTH Carvedilol (Coreg) 6.25 mg BIDWMEALS 06/16/17 17:00 06/17/17 17:51 6.25 MG Ceftriaxone Sodium 1 gm/ Dextrose 50 ml @ 100 mls/hr Q24H 06/17/17 16:45 UNV Ceftriaxone Sodium (Rocephin Im) 1 gm Q24H 06/17/17 17:00 Cancel Ceftriaxone Sodium (Rocephin) 1 gm Q24H 06/17/17 17:00 06/17/17 17:52 1 GM Clopidogrel Bisulfate (Plavix) 75 mg DAILY 06/16/17 13:00 11/26/17 09:09 75 MG Fentanyl Citrate (Fentanyl 2ml Vial) 25 mcg PRN Q2HR PRN 06/16/17 18:15 06/17/17 18:26 25 MCG Furosemide (Lasix) 40 mg DAILY 06/16/17 13:00 06/17/17 09:05 40 MG Hydrochlorothiazide (Hydrodiuril) 50 mg DAILY 06/16/17 13:00 06/17/17 09:05 50 MG Ketorolac Tromethamine (Toradol) 15 mg PRN Q6HRS PRN 06/16/17 14:00 06/21/17 13:59 06/17/17 13:31 15 MG Labetalol HCl (Normodyne) 10 mg PRN Q2HR PRN 06/16/17 12:30 Lisinopril (Prinivil) 5 mg HS 06/16/17 21:00 06/16/17 21:25 5 MG Meloxicam (Mobic) 15 mg DAILY 06/16/17 14:00 06/17/17 09:05 15 MG Nicotine (Nicoderm Cq 21mg) 1 patch DAILY 06/16/17 13:00 Nicotine Polacrilex (Nicorette Gum) 1 each PRN Q2HRS PRN 06/16/17 12:30 Non-Formulary Medication 1 puff BID 06/16/17 21:00 UNV Ondansetron HCl (Zofran) 4 mg PRN Q8HRS PRN 06/16/17 10:45 06/17/17 10:44 DC 06/16/17 10:59 4 MG Potassium Chloride (Klor-Con) 40 meq 1X ONCE 06/16/17 10:15 06/16/17 10:16 DC 06/16/17 10:33 40 MEQ Prasugrel (Effient) 10 mg DAILY 06/17/17 09:00 UNV Tramadol HCl (Ultram) 50 mg PRN Q6HRS PRN 06/16/17 13:15 06/16/17 13:41 DC ALLERGIES: Allergies Coded Allergies Type Severity Reaction Last Updated Verified diphenhydramine Allergy Intermediate Hives 06/19/16 Yes codeine Adverse Reaction Severe HYPERTENSION, LORTAB OK 06/16/17 Yes ketorolac Adverse Reaction Severe HYPERTENSION 06/16/17 Yes ROS: Negative for 05/05 systems reviewed unless otherwise noted above in HPI PHYSICAL EXAM: Vital Signs: Vital Signs Date Time Temp Pulse Resp B/P (MAP) Pulse Ox O2 Delivery O2 Flow Rate FiO2 06/17/17 19:57 97 Nasal Cannula 2.0 06/17/17 18:56 16 06/17/17 17:51 101 105/64 06/17/17 15:34 98.5 98.5 I & O Intake and Output 06/17/17 07:00 Intake Total 1050 ml Balance 1050 ml Intake Oral 1050 ml # Voids 7 Physical Exam: GEN.: No apparent distress. Alert and oriented. HEENT: Head is normocephalic, atraumatic NECK: Supple. LUNGS: Clear to auscultation. HEART: RRR, S1, S2 present. Peripheral pulses intact ABDOMEN: Soft, nontender. Positive bowel sounds. EXTREMITIES: Without any cyanosis. NEUROLOGIC: Normal speech, normal tone PSYCHIATRIC: Normal affect, normal mood. SKIN: No ulcerations DIAGNOSTIC TESTING: Negative trop EKG unremarkable Cath 03/2017 w/o sign disease. Mild hypokalemia. +meth screen ASSESSMENT: 1. Non-cardiac chest pain 2. Known CAD s/p cath in 03/2017 with patent stent 3. +tox screen 4. HTN 5. Dyslipidemia 6. Hypokalemia. PLAN: 1. No further CV testing necessary at this time. 2. Start K- supp daily and consider holding lasix upon discharge 3. Supportive care. No further CV testing necessary. thanks for consult. Pls call with questions. Late entry for 06/16/2017 TACHO THOMPSON MD Jun 17, 2017 20:18
[2017-06-17] MEDS ORDERED: POTASSIUM CHLORIDE 20 MEQ TABLET.ER. PO ONE (20:30)
[2017-06-17] MEDS: ATORVASTATIN CALCIUM 40 MG TABLET. PO SCH (20:46)
[2017-06-17] MEDS: LISINOPRIL 5 MG TABLET. PO SCH (21:00)
[2017-06-18] VITALS (7 sets, daily range): BP systolic 93–138; BP diastolic 36–67
[2017-06-18] MEDS: fentaNYL PF VIAL 100 MCG/2 ML VIAL IV PRN (02:26)
[2017-06-18 04:08] LABS: BASO # 0.1 x10^3/uL (0.0-0.2); BASO % 1 % (0-3); EOS % 2 % (0-3); HEMATOCRIT 35.7 % (36.0-47.0); HEMOGLOBIN 12.1 g/dL (12.0-15.5); LYMPH # 1.7 x10^3/uL (1.0-4.8); LYMPH % 16 % (24-48); MEAN CORPUSCULAR HEMOGLOBIN 29 pg (25-35); MEAN CORPUSCULAR HGB CONC 34 g/dL (31-37); MEAN CORPUSCULAR VOLUME 86 fL (79-100); MONO % 7 % (0-9); NEUT % 75 % (31-73); PLATELET COUNT 252 x10^3/uL (140-400); RED BLOOD COUNT 4.14 x10^6/uL (3.50-5.40); RED CELL DISTRIBUTION WIDTH 13.5 % (11.5-14.5); WHITE BLOOD COUNT 10.9 x10^3/uL (4.0-11.0)
[2017-06-18] MEDS: KETOROLAC 15 MG/ML VIAL. IV PRN ×3 (04:22→17:24)
[2017-06-18 04:43] LABS: CALCIUM 8.5 mg/dL (8.5-10.1); GFR 57.6; POTASSIUM 3.1 mmol/L (3.5-5.1)
[2017-06-18] MEDS: BUDESONIDE 0.5 MG/2 ML NEBU. NEB SCH ×2 (08:23→19:48)
[2017-06-18] MEDS: ALBUTEROL SULFATE 2.5 MG/3 ML NEBU. NEB SCH ×4 (08:23→19:48)
[2017-06-18] MEDS: CAPSAICIN 0.025% TOPICAL CREAM 60GM TUBE. TP SCH ×3 (09:00→21:00)
[2017-06-18] MEDS: NICOTINE 21MG PATCH. TD SCH (09:00)
[2017-06-18] MEDS: MELOXICAM 7.5 MG TABLET PO SCH (09:03)
[2017-06-18] MEDS: POTASSIUM CHLORIDE 20 MEQ TABLET.ER. PO SCH (09:03)
[2017-06-18] MEDS: CARVEDILOL 6.25 MG TABLET. PO SCH ×2 (09:04→17:34)
[2017-06-18] MEDS: FUROSEMIDE 40 MG TABLET. PO SCH (09:04)
[2017-06-18] MEDS: CLOPIDOGREL BISULFATE 75 MG TABLET PO SCH (09:04)
[2017-06-18] MEDS: ASPIRIN 325 MG TABLET PO SCH (09:04)
[2017-06-18] MEDS: hydroCHLOROthiazide 25 MG TABLET PO SCH (09:04)
[2017-06-18] MEDS ORDERED: methylPREDNISolone ACETATE 40 MG/ML VIAL. INJ ONE ×2 (09:30)
[2017-06-18] MEDS ORDERED: BUPIVACAINE MPF 0.25% 10 ML VIAL. IJ ONE (09:30)
[2017-06-18] MEDS: PANTOPRAZOLE 40 MG TABLET.DR. PO SCH (09:45)
[2017-06-18] MEDS: predniSONE 10 MG TABLET PO SCH (09:45)
[2017-06-18] MEDS ORDERED: POTASSIUM CHLORIDE 20 MEQ TABLET.ER. PO ONE (14:45)
[2017-06-18] MEDS ORDERED: MAGNESIUM SULFATE 2GM 50 ML IV ONE (15:00)
--- NOTE | 2017-06-18 15:08 | PDOC ---
PROGRESS NOTES Chief Complaint Chief Complaint Chest pain, Shoulder pain costochondritis, osteoarthritis B/l knee pain CAD CHF HTN COPD Osteoporosis GERD History of Present Illness History of Present Illness knees feel better, s/p injection by Dr. Murray left shoulder pain, better w/ toradol cont Ice PT and OT may help OA and weakness Vitals Vitals Vital Signs Date Time Temp Pulse Resp B/P (MAP) Pulse Ox O2 Delivery O2 Flow Rate FiO2 06/18/17 15:01 97.9 80 20 103/36 (58) 93 Room Air 97.9 06/18/17 02:56 2.0 Physical Exam Physical Exam seems depressed General: Alert, Oriented X3, Cooperative, Other Heart: Normal S1, Normal S2 Lungs: Wheezing Abdomen: Normal bowel sounds, Soft Extremities: No clubbing, No cyanosis, Normal pulses Skin: No rashes, No breakdown, No significant lesion Labs LABS Laboratory Tests Test 06/18/17 03:40 White Blood Count 10.9 x10^3/uL (4.0-11.0) Red Blood Count 4.14 x10^6/uL (3.50-5.40) Hemoglobin 12.1 g/dL (12.0-15.5) Hematocrit 35.7 % (36.0-47.0) Mean Corpuscular Volume 86 fL (79-100) Mean Corpuscular Hemoglobin 29 pg (25-35) Mean Corpuscular Hemoglobin Concent 34 g/dL (31-37) Red Cell Distribution Width 13.5 % (11.5-14.5) Platelet Count 252 x10^3/uL (140-400) Neutrophils (%) (Auto) 75 % (31-73) Lymphocytes (%) (Auto) 16 % (24-48) Monocytes (%) (Auto) 7 % (0-9) Eosinophils (%) (Auto) 2 % (0-3) Basophils (%) (Auto) 1 % (0-3) Neutrophils # (Auto) 8.2 x10^3uL (1.8-7.7) Lymphocytes # (Auto) 1.7 x10^3/uL (1.0-4.8) Monocytes # (Auto) 0.7 x10^3/uL (0.0-1.1) Eosinophils # (Auto) 0.2 x10^3/uL (0.0-0.7) Basophils # (Auto) 0.1 x10^3/uL (0.0-0.2) Sodium Level 132 mmol/L (136-145) Potassium Level 3.1 mmol/L (3.5-5.1) Chloride Level 92 mmol/L (98-107) Carbon Dioxide Level 34 mmol/L (21-32) Anion Gap 6 (6-14) Blood Urea Nitrogen 24 mg/dL (7-20) Creatinine 1.0 mg/dL (0.6-1.0) Estimated GFR (Cockcroft-Gault) 57.6 Glucose Level 124 mg/dL (70-99) Calcium Level 8.5 mg/dL (8.5-10.1) Review of Systems Review of Systems weakenss lethargy knee pain, shoulder pain Assessment and Plan Assessmemt and Plan Problems Medical Problems: (1) Chest pain Status: Acute Problems: Comment Review of Relevant I have reviewed the following items harjeet (where applicable) has been applied. Labs Laboratory Tests Test 06/18/17 03:40 White Blood Count 10.9 x10^3/uL (4.0-11.0) Red Blood Count 4.14 x10^6/uL (3.50-5.40) Hemoglobin 12.1 g/dL (12.0-15.5) Hematocrit 35.7 % (36.0-47.0) Mean Corpuscular Volume 86 fL (79-100) Mean Corpuscular Hemoglobin 29 pg (25-35) Mean Corpuscular Hemoglobin Concent 34 g/dL (31-37) Red Cell Distribution Width 13.5 % (11.5-14.5) Platelet Count 252 x10^3/uL (140-400) Neutrophils (%) (Auto) 75 % (31-73) Lymphocytes (%) (Auto) 16 % (24-48) Monocytes (%) (Auto) 7 % (0-9) Eosinophils (%) (Auto) 2 % (0-3) Basophils (%) (Auto) 1 % (0-3) Neutrophils # (Auto) 8.2 x10^3uL (1.8-7.7) Lymphocytes # (Auto) 1.7 x10^3/uL (1.0-4.8) Monocytes # (Auto) 0.7 x10^3/uL (0.0-1.1) Eosinophils # (Auto) 0.2 x10^3/uL (0.0-0.7) Basophils # (Auto) 0.1 x10^3/uL (0.0-0.2) Sodium Level 132 mmol/L (136-145) Potassium Level 3.1 mmol/L (3.5-5.1) Chloride Level 92 mmol/L (98-107) Carbon Dioxide Level 34 mmol/L (21-32) Anion Gap 6 (6-14) Blood Urea Nitrogen 24 mg/dL (7-20) Creatinine 1.0 mg/dL (0.6-1.0) Estimated GFR (Cockcroft-Gault) 57.6 Glucose Level 124 mg/dL (70-99) Calcium Level 8.5 mg/dL (8.5-10.1) Laboratory Tests Test 06/18/17 03:40 White Blood Count 10.9 x10^3/uL (4.0-11.0) Red Blood Count 4.14 x10^6/uL (3.50-5.40) Hemoglobin 12.1 g/dL (12.0-15.5) Hematocrit 35.7 % (36.0-47.0) Mean Corpuscular Volume 86 fL (79-100) Mean Corpuscular Hemoglobin 29 pg (25-35) Mean Corpuscular Hemoglobin Concent 34 g/dL (31-37) Red Cell Distribution Width 13.5 % (11.5-14.5) Platelet Count 252 x10^3/uL (140-400) Neutrophils (%) (Auto) 75 % (31-73) Lymphocytes (%) (Auto) 16 % (24-48) Monocytes (%) (Auto) 7 % (0-9) Eosinophils (%) (Auto) 2 % (0-3) Basophils (%) (Auto) 1 % (0-3) Neutrophils # (Auto) 8.2 x10^3uL (1.8-7.7) Lymphocytes # (Auto) 1.7 x10^3/uL (1.0-4.8) Monocytes # (Auto) 0.7 x10^3/uL (0.0-1.1) Eosinophils # (Auto) 0.2 x10^3/uL (0.0-0.7) Basophils # (Auto) 0.1 x10^3/uL (0.0-0.2) Sodium Level 132 mmol/L (136-145) Potassium Level 3.1 mmol/L (3.5-5.1) Chloride Level 92 mmol/L (98-107) Carbon Dioxide Level 34 mmol/L (21-32) Anion Gap 6 (6-14) Blood Urea Nitrogen 24 mg/dL (7-20) Creatinine 1.0 mg/dL (0.6-1.0) Estimated GFR (Cockcroft-Gault) 57.6 Glucose Level 124 mg/dL (70-99) Calcium Level 8.5 mg/dL (8.5-10.1) Medications Current Medications Fentanyl Citrate (Fentanyl 2ml Vial) 50 mcg 1X ONCE IV Last administered on 09:35; Start 06/16/17 at 09:30; Stop 06/16/17 at 09:31; Status DC Potassium Chloride (Klor-Con) 40 meq 1X ONCE PO Last administered on 10:33; Start 06/16/17 at 10:15; Stop 06/16/17 at 10:16; Status DC Ondansetron HCl (Zofran) 4 mg PRN Q8HRS PRN IV NAUSEA/VOMITING Last administered on 06/16/17 10:59; Start 06/16/17 at 10:45; Stop 06/17/17 at 10 :44; Status DC Fentanyl Citrate (Fentanyl 2ml Vial) 50 mcg PRN Q2HR PRN IV PAIN Last administered on 06/16/17 10:59; Start 06/16/17 at 10:45; Stop 06/16/17 at 13 :07; Status DC Acetaminophen (Tylenol) 650 mg PRN Q4HRS PRN PO FEVER; Start 06/16/17 at 10:45 ; Stop 06/17/17 at 10:44; Status DC Labetalol HCl (Normodyne) 10 mg PRN Q2HR PRN IVP HYPERTENSION, SEE COMMENTS; Start 06/16/17 at 12:30 Aspirin (Rey Aspirin) 325 mg DAILY PO Last administered on 06/18/17 09:04; Start 06/16/17 at 13:00 Atorvastatin Calcium (Lipitor) 40 mg QHS PO Last administered on 06/17/17 20: 46; Start 06/16/17 at 21:00 Carvedilol (Coreg) 6.25 mg BIDWMEALS PO Last administered on 06/18/17 09:04; Start 06/16/17 at 17:00 Clopidogrel Bisulfate (Plavix) 75 mg DAILY PO Last administered on 06/18/17 09:04; Start 06/16/17 at 13:00 Furosemide (Lasix) 40 mg DAILY PO Last administered on 06/18/17 09:04; Start 06/16/17 at 13:00 Lisinopril (Prinivil) 5 mg HS PO Last administered on 06/16/17 21:25; Start 06/16/17 at 21:00 Nicotine (Nicoderm Cq 21mg) 1 patch DAILY TD ; Start 06/16/17 at 13:00 Nicotine Polacrilex (Nicorette Gum) 1 each PRN Q2HRS PRN BC SMOKING CESSATION; Start 06/16/17 at 12:30 Prasugrel (Effient) 10 mg DAILY PO ; Start 06/17/17 at 09:00; Status UNV Non-Formulary Medication 2 puff BID IH ; Start 06/16/17 at 21:00; Status UNV Non-Formulary Medication 1 puff BID IH ; Start 06/16/17 at 21:00; Status UNV Hydrochlorothiazide (Hydrodiuril) 50 mg DAILY PO Last administered on 09:04; Start 06/16/17 at 13:00 Albuterol Sulfate (Ventolin Neb Soln) 2.5 mg RTQID NEB Last administered on 12:09; Start 06/16/17 at 13:00 Budesonide (Pulmicort) 0.5 mg RTBID NEB Last administered on 06/18/17 08:23; Start 06/16/17 at 13:00 Ketorolac Tromethamine (Toradol) 15 mg PRN Q6HRS PRN IV PAIN Last administered on 06/18/17 11:29; Start 06/16/17 at 14:00; Stop 06/21/17 at 13:59 Meloxicam (Mobic) 15 mg DAILY PO Last administered on 06/18/17 09:03; Start 06/16/17 at 14:00; Stop 06/18/17 at 09:14; Status DC Capsaicin (Zostrix) 1 smooth TID TP Last administered on 06/17/17 15:21; Start 06/16/17 at 14:00 Tramadol HCl (Ultram) 50 mg PRN Q6HRS PRN PO PAIN; Start 06/16/17 at 13:15; Stop 06/16/17 at 13:41; Status DC Acetaminophen/ Hydrocodone Bitart (Lortab 5/325) 1 tab PRN Q6HRS PRN PO PAIN Last administered on 06/16/17 14:08; Start 06/16/17 at 13:45 Fentanyl Citrate (Fentanyl 2ml Vial) 25 mcg PRN Q2HR PRN IV PAIN Last administered on 06/18/17 02:26; Start 06/16/17 at 18:15 Ceftriaxone Sodium (Rocephin Im) 1 gm Q24H IM ; Start 06/17/17 at 17:00; Status Cancel Ceftriaxone Sodium 1 gm/ Dextrose 50 ml @ 100 mls/hr Q24H IV ; Start 06/17/17 at 16:45; Status UNV Ceftriaxone Sodium (Rocephin) 1 gm Q24H IVP Last administered on 06/17/17 17: 52; Start 06/17/17 at 17:00 Potassium Chloride (Klor-Con) 40 meq 1X ONCE PO Last administered on 20:47; Start 06/17/17 at 20:30; Stop 06/17/17 at 20:31; Status DC Potassium Chloride (Klor-Con) 20 meq DAILYWBKFT PO Last administered on 09:03; Start 06/18/17 at 08:00 Methylprednisolone Acetate (DEPO-Medrol 40MG VIAL) 40 mg 1X ONCE INJ ; Start 06/18/17 at 09:30; Stop 06/18/17 at 09:31; Status DC Methylprednisolone Acetate (DEPO-Medrol 40MG VIAL) 40 mg 1X ONCE INJ ; Start 06/18/17 at 09:30; Stop 06/18/17 at 09:31; Status DC Bupivacaine HCl (Sensorcaine-Mpf 0.25%) 10 ml 1X ONCE IJ ; Start 06/18/17 at 09:30; Stop 06/18/17 at 09:31; Status DC Prednisone (Prednisone) 10 mg DAILY PO Last administered on 06/18/17 09:45; Start 06/18/17 at 09:30 Pantoprazole Sodium (Protonix) 40 mg DAILYAC PO Last administered on 09:45; Start 06/18/17 at 09:30 Potassium Chloride (Klor-Con) 40 meq 1X ONCE PO ; Start 06/18/17 at 14:45; Stop 06/18/17 at 14:46; Status DC Magnesium Sulfate/ Dextrose 50 ml @ 25 mls/hr 1X ONCE IV ; Start 06/18/17 at 15:00; Stop 06/18/17 at 16:59 Active Scripts Active Carvedilol 6.25 Mg Tablet 6.25 Mg PO BIDWMEALS SIG: ONE P.O. BID Atorvastatin Calcium 40 Mg Tablet 40 Mg PO QHS SIG: ONE P.O. AT BEDTIME Lisinopril 2.5 Mg Tablet 2.5 Mg PO QHS SIG: ONE P.O. AT BEDTIME Furosemide 40 Mg Tablet 40 Mg PO DAILY SIG: ONE DAILY Reported Hydrochlorothiazide Tablet (Hydrochlorothiazide) 50 Mg Tablet 1 Tab PO DAILY Carvedilol 6.25 Mg Tablet 1 Tab PO BID Lisinopril 5 Mg Tablet 1 Tab PO HS Clopidogrel (Clopidogrel Bisulfate) 75 Mg Tablet 1 Tab PO DAILY Atorvastatin Calcium 20 Mg Tablet 20 Mg PO HS Advair 500-50 Diskus (Fluticasone/Salmeterol) 1 Each Disk.w.dev 1 Puff IH BID Flovent 44MCG Hfa (Fluticasone Propionate) 10.6 Gm Aer.w.adap 2 Puff IH BID Effient (Prasugrel Hcl) 10 Mg Tablet 10 Mg PO DAILY Aspirin 325 Mg Tablet 1 Tab PO DAILY NICODERM CQ 21mg (Nicotine) 1 Each Patch.td24 1 Patch TP DAILY Nicorette (Nicotine Polacrilex) 2 Mg Gum 2 Mg BC PRN Q2HRS PRN Vitals/I & O Vital Sign - Last 24 Hours 06/17/17 06/17/17 06/17/17 06/17/17 15:34 15:45 17:49 17:51 Temp 98.5 98.5 Pulse 90 101 101 Resp 18 B/P (MAP) 83/49 (60) 105/64 (78) 105/64 Pulse Ox 92 96 O2 Delivery Nasal Cannula Nasal Cannula O2 Flow Rate 2.0 2.0 06/17/17 06/17/17 06/17/17 06/17/17 18:26 18:56 19:00 19:56 Temp 99.1 99.1 Pulse 96 Resp 18 16 16 B/P (MAP) 108/63 (78) Pulse Ox 98 97 O2 Delivery Room Air Nasal Cannula O2 Flow Rate 2.0 06/17/17 06/17/17 06/17/17 06/17/17 19:57 20:00 20:45 23:00 Temp 99.3 99.3 Pulse 101 71 Resp 16 B/P (MAP) 111/50 (70) 101/56 (71) Pulse Ox 97 95 O2 Delivery Nasal Cannula Nasal Cannula Room Air O2 Flow Rate 2.0 2.0 06/18/17 06/18/17 06/18/17 06/18/17 02:26 02:56 03:00 07:00 Temp 98.4 99.0 98.4 99.0 Pulse 91 89 Resp 18 20 B/P (MAP) 110/54 (72) 116/61 (79) Pulse Ox 97 90 O2 Delivery Nasal Cannula Nasal Cannula Room Air Room Air O2 Flow Rate 2.0 2.0 06/18/17 06/18/17 06/18/17 06/18/17 08:00 08:26 08:26 09:04 Pulse 90 B/P (MAP) 116/61 Pulse Ox 94 94 O2 Delivery Room Air Room Air Room Air 06/18/17 06/18/17 06/18/17 11:00 12:09 15:01 Temp 97.9 97.9 97.9 97.9 Pulse 86 80 Resp 18 20 B/P (MAP) 93/54 (67) 103/36 (58) Pulse Ox 90 91 93 O2 Delivery Room Air Room Air Room Air Intake and Output 06/17/17 06/17/17 06/18/17 15:00 23:00 07:00 Intake Total 600 ml 0 ml Output Total 0 ml Balance 600 ml 0 ml MARIA GUADALUPE RIGGS MD Jun 18, 2017 15:07
[2017-06-18] MEDS ORDERED: POLYETHYLENE GLYCOL 3350 17 GM PACKET. PO PRN (15:15)
[2017-06-18] MEDS: POLYETHYLENE GLYCOL 3350 17 GM PACKET. PO SCH (15:21)
[2017-06-18] MEDS: HYDROcodone/APAP 5/325MG 1 TAB TABLET PO PRN ×2 (15:22→21:39)
--- NOTE | 2017-06-18 15:54 | RAD ---
AP standing knees, 06/18/2017: History: Painful knees A single standing view of the knees reveals mild narrowing of the medial compartments of the knee joints with mild marginal spurring, left greater than right. No fracture or dislocation is identified on this limited exam.
[2017-06-18] MEDS: cefTRIAXone IV Push 1 GM VIAL. IVP SCH (17:22)
[2017-06-18] MEDS: LISINOPRIL 5 MG TABLET. PO SCH (21:39)
[2017-06-18] MEDS: ATORVASTATIN CALCIUM 40 MG TABLET. PO SCH (21:39)
[2017-06-19] MEDS: KETOROLAC 15 MG/ML VIAL. IV PRN (02:01)
[2017-06-19 03:00] VITALS: BP 87/36
[2017-06-19 06:16] LABS: BASO % 0 % (0-3); EOS % 0 % (0-3); HEMATOCRIT 36.8 % (36.0-47.0); HEMOGLOBIN 12.3 g/dL (12.0-15.5); LYMPH # 1.1 x10^3/uL (1.0-4.8); LYMPH % 5 % (24-48); MEAN CORPUSCULAR HEMOGLOBIN 28 pg (25-35); MEAN CORPUSCULAR HGB CONC 33 g/dL (31-37); MEAN CORPUSCULAR VOLUME 85 fL (79-100); MONO % 3 % (0-9); NEUT % 91 % (31-73); PLATELET COUNT 312 x10^3/uL (140-400); RED BLOOD COUNT 4.32 x10^6/uL (3.50-5.40); RED CELL DISTRIBUTION WIDTH 13.1 % (11.5-14.5); WHITE BLOOD COUNT 20.8 x10^3/uL (4.0-11.0)
[2017-06-19] MEDS: HYDROcodone/APAP 5/325MG 1 TAB TABLET PO PRN (06:33)
[2017-06-19 06:35] LABS: CALCIUM 9.4 mg/dL (8.5-10.1); CREATININE 1.2 mg/dL (0.6-1.0); GFR 46.6; POTASSIUM 3.6 mmol/L (3.5-5.1)
[2017-06-19 07:00] VITALS: BP 97/51
[2017-06-19] MEDS: ALBUTEROL SULFATE 2.5 MG/3 ML NEBU. NEB SCH ×2 (07:26→11:45)
[2017-06-19] MEDS: BUDESONIDE 0.5 MG/2 ML NEBU. NEB SCH (07:26)
[2017-06-19 07:55] LABS: PLT ESTIMATE ADEQUATE (ADEQUATE)
[2017-06-19] MEDS: CARVEDILOL 6.25 MG TABLET. PO SCH (08:00)
--- NOTE | 2017-06-19 08:57 | CONS ---
DATE OF CONSULTATION: 06/18/2017 ATTENDING PHYSICIAN: Dr. Melton. The patient was seen at the request of Dr. Melton for rehab evaluation. HISTORY OF PRESENT ILLNESS: This is a 56-year-old female. The patient was admitted on 06/16/2017 with left shoulder and bilateral knee pain. The patient is status post stents, on Eliquis. The patient was admitted with chest pain, knee pain and shoulder pain. The patient with known coronary artery disease, congestive heart failure, hypertension, chronic obstructive pulmonary disease, gastroesophageal reflux disease, degenerative joint disease, status post arthroscopic debridement of both knees in the past, also status post hysterectomy, known ALLERGIC TO CODEINE, BENADRYL AND KETOROLAC. She still smokes less than 1 pack of cigarettes per day. Family history of coronary artery disease. The patient had x-rays of her shoulder, which failed to reveal any acute abnormality. X-rays of her knees revealed narrowing of medial knee joint line. The patient also admits pain in her groin and left shoulder. PHYSICAL EXAMINATION: Today revealed a middle-aged female. She is alert, oriented to time, place, person and circumstance and follows commands appropriately, moves all 4 extremities voluntarily where she had 5/5 grade muscle strength. Deep tendon reflexes are 1-2+ and symmetrical, and she had equal perception of touch and pinprick sensation bilaterally. Straight leg raising test is negative bilaterally. She had minimal tenderness to palpation over both groins. She had a crepitus on range of motion of both knee joints without any obvious knee joint effusion. She had tenderness to palpation over anterior aspect of left shoulder. She is independent with her mobility and most of the aspects of her self-care. She had a crepitus on range of motion of both knee joints. ASSESSMENT: The patient with painful degenerative joint disease of both knees and tendinitis, left shoulder. RECOMMENDATIONS: At her request, I have injected both knees under aseptic skin technique after skin preparation using alcohol swab with Marcaine and Depo-Medrol solution, and she tolerated the procedure satisfactorily without any side effects. I have instructed her in isometric strengthening exercises to her quadriceps muscles and also in application of physical modalities and Codman exercise to her left shoulder, to try her on prednisone to help with her inflammation and tenderness in her left shoulder. Hopefully, home with outpatient followup when medically stable in the next day or so. Dr. Melton, I appreciate asking me to participate in the care of this interesting patient. I will be glad to follow her with you as needed for her rehabilitation. DK BADILLO MD DR: SHAKEEL/jung JOB#: [id number] / [id number]
[2017-06-19] MEDS: CAPSAICIN 0.025% TOPICAL CREAM 60GM TUBE. TP SCH (09:00)
[2017-06-19] MEDS: NICOTINE 21MG PATCH. TD SCH (09:00)
[2017-06-19] MEDS: CLOPIDOGREL BISULFATE 75 MG TABLET PO SCH (09:06)
[2017-06-19] MEDS: PANTOPRAZOLE 40 MG TABLET.DR. PO SCH (09:06)
[2017-06-19] MEDS: POTASSIUM CHLORIDE 20 MEQ TABLET.ER. PO SCH (09:07)
[2017-06-19] MEDS: FUROSEMIDE 40 MG TABLET. PO SCH (09:07)
[2017-06-19] MEDS: ASPIRIN 325 MG TABLET PO SCH (09:07)
[2017-06-19] MEDS: predniSONE 10 MG TABLET PO SCH (09:07)
[2017-06-19] MEDS: hydroCHLOROthiazide 25 MG TABLET PO SCH (09:08)
[2017-06-19] MEDS: POLYETHYLENE GLYCOL 3350 17 GM PACKET. PO SCH (09:08)
--- NOTE | 2017-06-19 10:17 | PDOC ---
PROGRESS NOTES Subjective Subjective She feels better and wants to go home. Objective Objective Vital Signs Date Time Temp Pulse Resp B/P (MAP) Pulse Ox O2 Delivery O2 Flow Rate FiO2 06/19/17 09:09 18 97 Room Air 2.0 06/19/17 08:00 99 97/51 06/19/17 07:00 97.8 97.8 Intake and Output 06/19/17 07:00 Intake Total 1850 ml Balance 1850 ml Intake Oral 1800 ml IV Total 50 ml Physical Exam Physical Exam She is sitting in bedside chair and using ice pack to left shoulder and she is independent with her mobility and self care. Assessment Assessment Problems Medical Problems: (1) Chest pain Status: Acute Plan Plan of Care I have instructed her in home exercises to her left shoulder and both knees. Comment Review of Relevant I have reviewed the following items harjeet (where applicable) has been applied. Labs Laboratory Tests Test 06/18/17 03:40 06/19/17 05:20 White Blood Count 10.9 x10^3/uL (4.0-11.0) 20.8 x10^3/uL (4.0-11.0) Red Blood Count 4.14 x10^6/uL (3.50-5.40) 4.32 x10^6/uL (3.50-5.40) Hemoglobin 12.1 g/dL (12.0-15.5) 12.3 g/dL (12.0-15.5) Hematocrit 35.7 % (36.0-47.0) 36.8 % (36.0-47.0) Mean Corpuscular Volume 86 fL (79-100) 85 fL (79-100) Mean Corpuscular Hemoglobin 29 pg (25-35) 28 pg (25-35) Mean Corpuscular Hemoglobin Concent 34 g/dL (31-37) 33 g/dL (31-37) Red Cell Distribution Width 13.5 % (11.5-14.5) 13.1 % (11.5-14.5) Platelet Count 252 x10^3/uL (140-400) 312 x10^3/uL (140-400) Neutrophils (%) (Auto) 75 % (31-73) 91 % (31-73) Lymphocytes (%) (Auto) 16 % (24-48) 5 % (24-48) Monocytes (%) (Auto) 7 % (0-9) 3 % (0-9) Eosinophils (%) (Auto) 2 % (0-3) 0 % (0-3) Basophils (%) (Auto) 1 % (0-3) 0 % (0-3) Neutrophils # (Auto) 8.2 x10^3uL (1.8-7.7) 19.0 x10^3uL (1.8-7.7) Lymphocytes # (Auto) 1.7 x10^3/uL (1.0-4.8) 1.1 x10^3/uL (1.0-4.8) Monocytes # (Auto) 0.7 x10^3/uL (0.0-1.1) 0.7 x10^3/uL (0.0-1.1) Eosinophils # (Auto) 0.2 x10^3/uL (0.0-0.7) 0.0 x10^3/uL (0.0-0.7) Basophils # (Auto) 0.1 x10^3/uL (0.0-0.2) 0.0 x10^3/uL (0.0-0.2) Sodium Level 132 mmol/L (136-145) 134 mmol/L (136-145) Potassium Level 3.1 mmol/L (3.5-5.1) 3.6 mmol/L (3.5-5.1) Chloride Level 92 mmol/L (98-107) 95 mmol/L (98-107) Carbon Dioxide Level 34 mmol/L (21-32) 33 mmol/L (21-32) Anion Gap 6 (6-14) 6 (6-14) Blood Urea Nitrogen 24 mg/dL (7-20) 39 mg/dL (7-20) Creatinine 1.0 mg/dL (0.6-1.0) 1.2 mg/dL (0.6-1.0) Estimated GFR (Cockcroft-Gault) 57.6 46.6 Glucose Level 124 mg/dL (70-99) 253 mg/dL (70-99) Calcium Level 8.5 mg/dL (8.5-10.1) 9.4 mg/dL (8.5-10.1) Segmented Neutrophils % 84 % (35-66) Band Neutrophils % 5 % (0-9) Lymphocytes % 9 % (24-48) Monocytes % 2 % (0-10) Platelet Estimate Adequate (ADEQUATE) Laboratory Tests Test 06/19/17 05:20 White Blood Count 20.8 x10^3/uL (4.0-11.0) Red Blood Count 4.32 x10^6/uL (3.50-5.40) Hemoglobin 12.3 g/dL (12.0-15.5) Hematocrit 36.8 % (36.0-47.0) Mean Corpuscular Volume 85 fL (79-100) Mean Corpuscular Hemoglobin 28 pg (25-35) Mean Corpuscular Hemoglobin Concent 33 g/dL (31-37) Red Cell Distribution Width 13.1 % (11.5-14.5) Platelet Count 312 x10^3/uL (140-400) Neutrophils (%) (Auto) 91 % (31-73) Lymphocytes (%) (Auto) 5 % (24-48) Monocytes (%) (Auto) 3 % (0-9) Eosinophils (%) (Auto) 0 % (0-3) Basophils (%) (Auto) 0 % (0-3) Neutrophils # (Auto) 19.0 x10^3uL (1.8-7.7) Lymphocytes # (Auto) 1.1 x10^3/uL (1.0-4.8) Monocytes # (Auto) 0.7 x10^3/uL (0.0-1.1) Eosinophils # (Auto) 0.0 x10^3/uL (0.0-0.7) Basophils # (Auto) 0.0 x10^3/uL (0.0-0.2) Segmented Neutrophils % 84 % (35-66) Band Neutrophils % 5 % (0-9) Lymphocytes % 9 % (24-48) Monocytes % 2 % (0-10) Platelet Estimate Adequate (ADEQUATE) Sodium Level 134 mmol/L (136-145) Potassium Level 3.6 mmol/L (3.5-5.1) Chloride Level 95 mmol/L (98-107) Carbon Dioxide Level 33 mmol/L (21-32) Anion Gap 6 (6-14) Blood Urea Nitrogen 39 mg/dL (7-20) Creatinine 1.2 mg/dL (0.6-1.0) Estimated GFR (Cockcroft-Gault) 46.6 Glucose Level 253 mg/dL (70-99) Calcium Level 9.4 mg/dL (8.5-10.1) Medications Current Medications Fentanyl Citrate (Fentanyl 2ml Vial) 50 mcg 1X ONCE IV Last administered on 09:35; Start 06/16/17 at 09:30; Stop 06/16/17 at 09:31; Status DC Potassium Chloride (Klor-Con) 40 meq 1X ONCE PO Last administered on 10:33; Start 06/16/17 at 10:15; Stop 06/16/17 at 10:16; Status DC Ondansetron HCl (Zofran) 4 mg PRN Q8HRS PRN IV NAUSEA/VOMITING Last administered on 06/16/17 10:59; Start 06/16/17 at 10:45; Stop 06/17/17 at 10 :44; Status DC Fentanyl Citrate (Fentanyl 2ml Vial) 50 mcg PRN Q2HR PRN IV PAIN Last administered on 06/16/17 10:59; Start 06/16/17 at 10:45; Stop 06/16/17 at 13 :07; Status DC Acetaminophen (Tylenol) 650 mg PRN Q4HRS PRN PO FEVER; Start 06/16/17 at 10:45 ; Stop 06/17/17 at 10:44; Status DC Labetalol HCl (Normodyne) 10 mg PRN Q2HR PRN IVP HYPERTENSION, SEE COMMENTS; Start 06/16/17 at 12:30 Aspirin (Rey Aspirin) 325 mg DAILY PO Last administered on 06/19/17 09:07; Start 06/16/17 at 13:00 Atorvastatin Calcium (Lipitor) 40 mg QHS PO Last administered on 06/18/17 21: 39; Start 06/16/17 at 21:00 Carvedilol (Coreg) 6.25 mg BIDWMEALS PO Last administered on 06/18/17 17:34; Start 06/16/17 at 17:00 Clopidogrel Bisulfate (Plavix) 75 mg DAILY PO Last administered on 06/19/17 09:06; Start 06/16/17 at 13:00 Furosemide (Lasix) 40 mg DAILY PO Last administered on 06/19/17 09:07; Start 06/16/17 at 13:00 Lisinopril (Prinivil) 5 mg HS PO Last administered on 06/18/17 21:39; Start 06/16/17 at 21:00 Nicotine (Nicoderm Cq 21mg) 1 patch DAILY TD ; Start 06/16/17 at 13:00 Nicotine Polacrilex (Nicorette Gum) 1 each PRN Q2HRS PRN BC SMOKING CESSATION; Start 06/16/17 at 12:30 Prasugrel (Effient) 10 mg DAILY PO ; Start 06/17/17 at 09:00; Status UNV Non-Formulary Medication 2 puff BID IH ; Start 06/16/17 at 21:00; Status UNV Non-Formulary Medication 1 puff BID IH ; Start 06/16/17 at 21:00; Status UNV Hydrochlorothiazide (Hydrodiuril) 50 mg DAILY PO Last administered on 09:08; Start 06/16/17 at 13:00 Albuterol Sulfate (Ventolin Neb Soln) 2.5 mg RTQID NEB Last administered on 07:26; Start 06/16/17 at 13:00 Budesonide (Pulmicort) 0.5 mg RTBID NEB Last administered on 06/19/17 07:26; Start 06/16/17 at 13:00 Ketorolac Tromethamine (Toradol) 15 mg PRN Q6HRS PRN IV PAIN Last administered on 06/19/17 02:01; Start 06/16/17 at 14:00; Stop 06/21/17 at 13:59 Meloxicam (Mobic) 15 mg DAILY PO Last administered on 06/18/17 09:03; Start 06/16/17 at 14:00; Stop 06/18/17 at 09:14; Status DC Capsaicin (Zostrix) 1 smooth TID TP Last administered on 06/17/17 15:21; Start 06/16/17 at 14:00 Tramadol HCl (Ultram) 50 mg PRN Q6HRS PRN PO PAIN; Start 06/16/17 at 13:15; Stop 06/16/17 at 13:41; Status DC Acetaminophen/ Hydrocodone Bitart (Lortab 5/325) 1 tab PRN Q6HRS PRN PO PAIN Last administered on 06/19/17 06:33; Start 06/16/17 at 13:45 Fentanyl Citrate (Fentanyl 2ml Vial) 25 mcg PRN Q2HR PRN IV PAIN Last administered on 06/18/17 02:26; Start 06/16/17 at 18:15 Ceftriaxone Sodium (Rocephin Im) 1 gm Q24H IM ; Start 06/17/17 at 17:00; Status Cancel Ceftriaxone Sodium 1 gm/ Dextrose 50 ml @ 100 mls/hr Q24H IV ; Start 06/17/17 at 16:45; Status UNV Ceftriaxone Sodium (Rocephin) 1 gm Q24H IVP Last administered on 06/18/17 17: 22; Start 06/17/17 at 17:00 Potassium Chloride (Klor-Con) 40 meq 1X ONCE PO Last administered on 20:47; Start 06/17/17 at 20:30; Stop 06/17/17 at 20:31; Status DC Potassium Chloride (Klor-Con) 20 meq DAILYWBKFT PO Last administered on 09:07; Start 06/18/17 at 08:00 Methylprednisolone Acetate (DEPO-Medrol 40MG VIAL) 40 mg 1X ONCE INJ ; Start 06/18/17 at 09:30; Stop 06/18/17 at 09:31; Status DC Methylprednisolone Acetate (DEPO-Medrol 40MG VIAL) 40 mg 1X ONCE INJ ; Start 06/18/17 at 09:30; Stop 06/18/17 at 09:31; Status DC Bupivacaine HCl (Sensorcaine-Mpf 0.25%) 10 ml 1X ONCE IJ ; Start 06/18/17 at 09:30; Stop 06/18/17 at 09:31; Status DC Prednisone (Prednisone) 10 mg DAILY PO Last administered on 06/19/17 09:07; Start 06/18/17 at 09:30 Pantoprazole Sodium (Protonix) 40 mg DAILYAC PO Last administered on 09:06; Start 06/18/17 at 09:30 Potassium Chloride (Klor-Con) 40 meq 1X ONCE PO Last administered on 15:07; Start 06/18/17 at 14:45; Stop 06/18/17 at 14:46; Status DC Magnesium Sulfate/ Dextrose 50 ml @ 25 mls/hr 1X ONCE IV Last administered on 06/18/17 15:07; Start 06/18/17 at 15:00; Stop 06/18/17 at 16:59; Status DC Polyethylene Glycol (miraLAX PACKET) 17 gm DAILY PO Last administered on 09:08; Start 06/18/17 at 15:00 Polyethylene Glycol (miraLAX PACKET) 17 gm PRN DAILY PRN PO CONSTIPATION; Start 06/18/17 at 15:15 Active Scripts Active Carvedilol 6.25 Mg Tablet 6.25 Mg PO BIDWMEALS SIG: ONE P.O. BID Atorvastatin Calcium 40 Mg Tablet 40 Mg PO QHS SIG: ONE P.O. AT BEDTIME Lisinopril 2.5 Mg Tablet 2.5 Mg PO QHS SIG: ONE P.O. AT BEDTIME Furosemide 40 Mg Tablet 40 Mg PO DAILY SIG: ONE DAILY Reported Hydrochlorothiazide Tablet (Hydrochlorothiazide) 50 Mg Tablet 1 Tab PO DAILY Carvedilol 6.25 Mg Tablet 1 Tab PO BID Lisinopril 5 Mg Tablet 1 Tab PO HS Clopidogrel (Clopidogrel Bisulfate) 75 Mg Tablet 1 Tab PO DAILY Atorvastatin Calcium 20 Mg Tablet 20 Mg PO HS Advair 500-50 Diskus (Fluticasone/Salmeterol) 1 Each Disk.w.dev 1 Puff IH BID Flovent 44MCG Hfa (Fluticasone Propionate) 10.6 Gm Aer.w.adap 2 Puff IH BID Effient (Prasugrel Hcl) 10 Mg Tablet 10 Mg PO DAILY Aspirin 325 Mg Tablet 1 Tab PO DAILY NICODERM CQ 21mg (Nicotine) 1 Each Patch.td24 1 Patch TP DAILY Nicorette (Nicotine Polacrilex) 2 Mg Gum 2 Mg BC PRN Q2HRS PRN Vitals/I & O Vital Sign - Last 24 Hours 06/18/17 06/18/17 06/18/17 06/18/17 11:00 12:09 15:01 15:22 Temp 97.9 97.9 97.9 97.9 Pulse 86 80 Resp 18 20 18 B/P (MAP) 93/54 (67) 103/36 (58) Pulse Ox 90 91 93 O2 Delivery Room Air Room Air Room Air Room Air 06/18/17 06/18/17 06/18/17 06/18/17 16:34 17:30 17:34 19:00 Temp 97.7 97.7 Pulse 97 97 97 Resp 18 B/P (MAP) 138/67 (90) 138/67 114/49 (70) Pulse Ox 90 O2 Delivery Room Air Room Air 06/18/17 06/18/17 06/18/17 06/18/17 19:49 19:51 20:00 21:39 Pulse 97 B/P (MAP) 114/49 Pulse Ox 96 97 O2 Delivery Room Air Room Air Room Air O2 Flow Rate 2.0 06/18/17 06/18/17 06/19/17 06/19/17 21:39 23:00 03:00 06:33 Temp 97.9 97.7 97.9 97.7 Pulse 100 104 Resp 20 18 18 20 B/P (MAP) 104/58 (73) 87/36 (53) Pulse Ox 97 89 O2 Delivery Room Air Room Air Room Air Room Air 06/19/17 06/19/17 06/19/17 06/19/17 07:00 07:27 08:00 09:09 Temp 97.8 97.8 Pulse 99 99 Resp 20 18 B/P (MAP) 97/51 (66) 97/51 Pulse Ox 96 97 97 O2 Delivery Room Air Room Air Room Air O2 Flow Rate 2.0 Intake and Output 06/18/17 06/18/17 06/19/17 15:00 23:00 07:00 Intake Total 300 ml 1150 ml 400 ml Balance 300 ml 1150 ml 400 ml DK BADILLO MD Jun 19, 2017 10:17
[2017-06-19 10:42] VITALS: BP 91/46
--- NOTE | 2017-07-19 10:23 | PDOC3 ---
Discharge Summary Visit Information Date of Admission: Jun 16, 2017 Date of Discharge: Jun 19, 2017 Admitting Diagnosis: chest pain Final Diagnosis Chest pain, Shoulder pain costochondritis, osteoarthritis B/l knee pain Known CAD s/p cath in 03/2017 with patent stent Hypokalemia. CAD CHF HTN, hyperlipids COPD Osteoporosis GERD + tox screen, possible pseudaphed, Vitals Problems Medical Problems: (1) Chest pain Status: Acute Brief Hospital Course Allergies Allergies Coded Allergies Type Severity Reaction Last Updated Verified diphenhydramine Allergy Intermediate Hives 06/19/16 Yes codeine Adverse Reaction Severe HYPERTENSION, LORTAB OK 06/16/17 Yes ketorolac Adverse Reaction Severe HYPERTENSION 06/16/17 Yes Brief Hospital Course Ms. Sanabria is a 56 old female, well known to CV service here, admit with Non- cardiac chest pain. Costochondritis knees feel better, s/p injection by Dr. Murray left shoulder pain, better w/ toradol cont Ice PT and OT may help OA and weakness Discharge Information Condition at Discharge: Improved Follow Up: Weeks Disposition/Orders: D/C to Home Scheduled Aspirin (Aspirin), 1 TAB PO DAILY, (Reported) Atorvastatin Calcium (Atorvastatin Calcium), 20 MG PO HS, (Reported) Carvedilol (Carvedilol), 6.25 MG PO BIDWMEALS Clopidogrel Bisulfate (Clopidogrel), 1 TAB PO DAILY, (Reported) Fluticasone Propionate (Flovent 44MCG Hfa), 2 PUFF IH BID, (Reported) Fluticasone/Salmeterol (Advair 500-50 Diskus), 1 PUFF IH BID, (Reported) Furosemide (Furosemide), 40 MG PO DAILY Hydrochlorothiazide (Hydrochlorothiazide Tablet), 1 TAB PO DAILY, (Reported) Lisinopril (Lisinopril), 2.5 MG PO QHS Nicotine (NICODERM CQ 21mg), 1 PATCH TP DAILY, (Reported) Prasugrel Hcl (Effient), 10 MG PO DAILY, (Reported) Scheduled PRN Nicotine Polacrilex (Nicorette), 2 MG BC PRN Q2HRS PRN for SMOKING CESSATION, ( Reported) Patient Instructions Patient Instructions > 30 min face to face MARIA GUADALUPE IRGGS MD Jul 19, 2017 10:23
== END 2017-06-19 13:00 | disposition home or self-care (01) | DRG 206 ==
LOC: ER 09:00 → 2 NORTH 10:20 → ER 11:26 → 2 NORTH 12:10 → 5 SOUTH 06-17 12:05
PROVIDERS: ADMIT Internal Medicine; ATTEND Internal Medicine
PROC: 3E0U3BZ Introduction of Anesthetic Agent into Joints, Percutaneous Approach (ICD-10-PCS; principal; 2017-06-18)
PROC: 3E0U33Z Introduction of Anti-inflammatory into Joints, Percutaneous Approach (ICD-10-PCS; 2017-06-18)
DX: M94.0 Chondrocostal junction syndrome [Tietze] (principal); I11.0 Hypertensive heart disease with heart failure; I50.9 Heart failure, unspecified; I25.10 Atherosclerotic heart disease of native coronary artery without angina pectoris; E66.9 Obesity, unspecified; E78.5 Hyperlipidemia, unspecified; Z88.8 Allergy status to other drugs, medicaments and biological substances; E87.6 Hypokalemia; F17.210 Nicotine dependence, cigarettes, uncomplicated; J44.9 Chronic obstructive pulmonary disease, unspecified; K21.9 Gastro-esophageal reflux disease without esophagitis; M17.0 Bilateral primary osteoarthritis of knee; M75.92 Shoulder lesion, unspecified, left shoulder; M81.0 Age-related osteoporosis without current pathological fracture; Z82.49 Family history of ischemic heart disease and other diseases of the circulatory system; Z88.5 Allergy status to narcotic agent; Z90.710 Acquired absence of both cervix and uterus; Z95.5 Presence of coronary angioplasty implant and graft; Z68.33 Body mass index [BMI] 33.0-33.9, adult
CPT/HCPCS: 36415; 71010; 73030; 73560; 73565; 80048; 80053; 80307; 81001; 82553; 83690; 83735; 83880; 84443; 84484; 85007; 85025; 85379; 85610; 87804; 93005; 94250; 94640; 94760; 96374; 96375; 96376; J0696; J1030; J1885; J2405; J3010; J3490; J7060; J7512; J7613; J7626; 97116; 97530; 99285-25; G0479

== ENCOUNTER → 2018-01-01 | Outpatient (CLI) | payer OTHER ==
[2018-01-01] MEDS: ALBUTEROL SULFATE 2.5 MG/3 ML NEBU. NEB (10:52)
== END | disposition home or self-care (01) ==
LOC: PF 10:14
DX: J44.9 Chronic obstructive pulmonary disease, unspecified (principal)
CPT/HCPCS: 94060; 94640; J7613